=== PATIENT | male | born 1960 | race Caucasian/White ===

== ENCOUNTER 2017-05-31 12:50 | Emergency (ER) | payer MEDICAID ==
[2017-05-31 12:57] VITALS: RESP 16; TEMP 98.4
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
[2017-05-31 13:45] LABS: BASO % 0.4 % (0.0-2.0); EOS # 0.1 K/uL (0.0-0.7); EOS % 1.6 % (0.0-4.0); HEMOGLOBIN 12.9 g/dL (12.0-18.0); LYMPH # 1.8 K/uL (1.0-4.3); LYMPH % 19.8 % (20.0-40.0); MEAN CORPUSCULAR HGB CONC 33.7 g/dL (33.0-37.0); MEAN PLATELET VOLUME 8.7 fL (7.2-11.7); MONO # 0.9 K/uL (0.0-0.8); MONO % 9.8 % (0.0-10.0); NEUT # 6.2 K/uL (1.8-7.0); NEUT % 68.4 % (50.0-75.0); RBC 4.45 Mil/uL (4.40-5.90); RED CELL DISTRIBUTION WIDTH 14.1 % (11.5-14.5); WHITE BLOOD COUNT 9.1 K/uL (4.8-10.8)
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
[2017-05-31 14:40] LABS: ALB/GLOB RATIO 1.1 (1.0-2.1); ALBUMIN 3.8 g/dL (3.5-5.0); CALCIUM 8.5 mg/dl (8.6-10.4); GFR AFRICAN-AMERICAN > 60; GFR NON-AFRICAN AMERICAN > 60
[2017-05-31 14:41] LABS: ALT/SGPT 19 U/L (21-72); AST/SGOT 32 U/L (17-59); BLOOD UREA NITROGEN 7 mg/dL (9-20)
[2017-05-31 15:07] VITALS: BP 132/84; PULSE 81; O2SAT 98
--- NOTE | 2017-05-31 15:15 | RAD ---
PROCEDURE: Radiographs of the right tibia and fibula. HISTORY: leg wounds COMPARISON: None available. TECHNIQUE: Frontal and lateral views obtained. FINDINGS: BONES: No acute fracture. No lytic or blastic osseous lesion. Numerous parallel adjacent linear lucencies are seen in the anterior mid tibial diaphyseal cortex, possibly postprocedural versus posttraumatic. . . This is seen directly beneath a cutaneous irregularity suggestive of a wound. JOINT SPACES: Unremarkable. OTHER FINDINGS: None. IMPRESSION: Multiple parallel linear lucencies in the anterior mid tibial cortex, possibly post procedural recess posttraumatic. Cutaneous wound overlying this region of the mid tibia. Otherwise unremarkable.
== END 2017-05-31 15:06 | disposition home or self-care (01) ==
LOC: C.ER 12:50
DX: L97.919 Non-pressure chronic ulcer of unspecified part of right lower leg with unspecified severity (principal)

== ENCOUNTER 2017-06-28 21:18 | Emergency (ER) | payer MEDICAID ==
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
[2017-06-28 23:07] LABS: BASO # 0.1 K/uL (0.0-0.2); BASO % 0.6 % (0.0-2.0); EOS # 0.1 K/uL (0.0-0.7); EOS % 1.8 % (0.0-4.0); HEMOGLOBIN 13.2 g/dL (12.0-18.0); LYMPH # 2.5 K/uL (1.0-4.3); LYMPH % 29.9 % (20.0-40.0); MEAN CELL VOLUME 87.6 fL (80.0-94.0); MEAN CORPUSCULAR HEMOGLOBIN 29.3 pg (27.0-31.0); MEAN CORPUSCULAR HGB CONC 33.4 g/dL (33.0-37.0); MEAN PLATELET VOLUME 7.5 fL (7.2-11.7); MONO # 0.7 K/uL (0.0-0.8); MONO % 8.8 % (0.0-10.0); NEUT # 4.8 K/uL (1.8-7.0); NEUT % 58.9 % (50.0-75.0); RBC 4.52 Mil/uL (4.40-5.90); RED CELL DISTRIBUTION WIDTH 16.2 % (11.5-14.5); WHITE BLOOD COUNT 8.2 K/uL (4.8-10.8)
[2017-06-28 23:09] LABS: PROTHROMBIN TIME 11.4 SECONDS (9.7-12.2)
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
[2017-06-28 23:14] LABS: ALB/GLOB RATIO 1.1 (1.0-2.1); ALBUMIN 3.9 g/dL (3.5-5.0); ALT/SGPT 19 U/L (21-72); AST/SGOT 28 U/L (17-59); BLOOD UREA NITROGEN 9 mg/dL (9-20); CALCIUM 8.5 mg/dl (8.6-10.4); GFR AFRICAN-AMERICAN > 60; GFR NON-AFRICAN AMERICAN > 60
[2017-06-28 23:32] LABS: VENOUS BLOOD GAS BASE EXCESS -3.1 mmol/L (0.0-2.0); VENOUS BLOOD GAS PCO2 45 mmHg (40-60); VENOUS BLOOD GAS PO2 35 mm/Hg (30-55); VENOUS BLOOD PH 7.32 (7.32-7.43)
[2017-06-29 04:10] VITALS: BP 102/72; PULSE 102; RESP 20; TEMP 98.2
[2017-06-29 05:09] VITALS: O2SAT 99
== END 2017-06-29 05:30 | disposition home or self-care (01) ==
LOC: C.ER 21:18 → SUPCPDRO 21:18 → C.ER 06-29 05:30
DX: L97.919 Non-pressure chronic ulcer of unspecified part of right lower leg with unspecified severity (principal); Z51.89 Encounter for other specified aftercare; F17.210 Nicotine dependence, cigarettes, uncomplicated

== ENCOUNTER 2017-07-09 11:59 | Inpatient (IN) | payer MEDICAID ==
[2017-07-09] MEDS ORDERED: Sodium Chloride 0.9% 1,000 ML IV ONE ×2 (12:54→14:52)
[2017-07-09 13:32] LABS: BASO % 0.2 % (0.0-2.0); HEMOGLOBIN 14.5 g/dL (12.0-18.0); LYMPH # 0.6 K/uL (1.0-4.3); LYMPH % 4.5 % (20.0-40.0); MEAN CELL VOLUME 87.9 fL (80.0-94.0); MEAN CORPUSCULAR HEMOGLOBIN 29.4 pg (27.0-31.0); MEAN CORPUSCULAR HGB CONC 33.4 g/dL (33.0-37.0); MONO # 0.8 K/uL (0.0-0.8); MONO % 5.4 % (0.0-10.0); NEUT # 12.8 K/uL (1.8-7.0); NEUT % 89.9 % (50.0-75.0); PLATELET COUNT 134 K/uL (130-400); RBC 4.95 Mil/uL (4.40-5.90); RED CELL DISTRIBUTION WIDTH 15.7 % (11.5-14.5)
[2017-07-09 13:37] LABS: WHITE BLOOD COUNT 14.2 K/uL (4.8-10.8)
[2017-07-09] MEDS ORDERED: Sodium Chloride 0.9% 1,000 ML ONE ×2 (13:38→15:00)
[2017-07-09 13:55] LABS: BANDS 1 % (0-2); EOSINOPHIL 1 % (0-4); LYMPHOCYTE 4 % (20-40); MONOCYTE 3 % (0-10); NEUTROPHIL 91 % (50-75); PLATELET ESTIMATE NORMAL (NORMAL); TOTAL CELLS COUNTED 100
[2017-07-09 13:56] LABS: ANISOCYTOSIS SLIGHT
[2017-07-09 13:57] LABS: ALB/GLOB RATIO 1.1 (1.0-2.1); ALBUMIN 4.3 g/dL (3.5-5.0); ALT/SGPT 24 U/L (21-72); AST/SGOT 41 U/L (17-59); BLOOD UREA NITROGEN 4 mg/dL (9-20); CALCIUM 9.4 mg/dl (8.6-10.4); GFR AFRICAN-AMERICAN > 60; GFR NON-AFRICAN AMERICAN > 60
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
[2017-07-09] MEDS ORDERED: Thiamine 100 mg/ml Inj IV ONE (14:40)
[2017-07-09] MEDS ORDERED: Piperacillin/Tazobact 3.375 gm 100 ML IVPB STA (14:41)
[2017-07-09] MEDS ORDERED: Piperacillin/Tazobact 3.375 gm 100 ML IVPB ONE (14:59)
[2017-07-09] MEDS ORDERED: Thiamine 100 mg/ml Inj ONE (14:59)
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
--- NOTE | 2017-07-09 15:31 | RAD ---
HISTORY: Cough. COMPARISON: 06/04/2017 FINDINGS: LUNGS: No active pulmonary disease. PLEURA: No significant pleural effusion identified, no pneumothorax apparent. CARDIOVASCULAR: No radiographic findings to suggest acute or significant cardiovascular disease. OSSEOUS STRUCTURES: No significant abnormalities. VISUALIZED UPPER ABDOMEN: Normal. OTHER FINDINGS: None. IMPRESSION: No active disease. No significant interval change compared to the prior examination(s).
[2017-07-09] MEDS ORDERED: Silver Sulfadiazine 1% Cream (20 gm) ONE (15:40)
[2017-07-09 15:41] LABS: ABG ALLEN TEST POS; ARTERIAL BLOOD GAS HCO3 24.8 mmol/L (21-28); ARTERIAL BLOOD GAS O2 SAT 99.3 % (95-98); ARTERIAL BLOOD GAS PCO2 41 mm/Hg (35-45); ARTERIAL BLOOD GAS PH 7.39 (7.35-7.45); ARTERIAL BLOOD GAS PO2 112 mm/Hg (80-100); ARTERIAL BLOOD GAS TCO2 26.1 mmol/L (22-28)
--- NOTE | 2017-07-09 15:50 | CT ---
PROCEDURE: CT HEAD WITHOUT CONTRAST. HISTORY: dizziness COMPARISON: None available. TECHNIQUE: Axial computed tomography images were obtained through the head/brain without intravenous contrast. Radiation dose: Total exam DLP = 1418.16 mGy-cm. This CT exam was performed using one or more of the following dose reduction techniques: Automated exposure control, adjustment of the mA and/or kV according to patient size, and/or use of iterative reconstruction technique. FINDINGS: HEMORRHAGE: No intracranial hemorrhage. BRAIN: No mass effect or edema. Left frontal encephalomalacia. Nonspecific. VENTRICLES: Mild ex vacuo dilatation of the frontal horn, left lateral ventricle. No hydrocephalus. CALVARIUM: Old high left frontal craniotomy PARANASAL SINUSES: Severe chronic right maxillary sinusitis. Mild chronic ethmoid sinusitis. MASTOID AIR CELLS: Unremarkable as visualized. No inflammatory changes. OTHER FINDINGS: None. IMPRESSION: Old left frontal craniotomy. Left frontal encephalomalacia. Minimal ex vacuo dilatation of the frontal horn, left lateral ventricle. No intracranial mass, hemorrhage or evidence of acute infarct.
[2017-07-09] MEDS: Silver Sulfadiazine 1% Cream (20 gm) TOP SCH (15:57)
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
[2017-07-09] MEDS ORDERED: Folic Acid 1 MG, Thiamine 100 MG, Multivitamin (MVI) 10 ML in Dextrose 5% In Water 1,00... IV SCH (17:00)
[2017-07-09] MEDS: Dexmedetomidine Hydrochloride 200 MCG in Sodium Chloride 0.9% 48 ML IV PRN (18:30)
[2017-07-09] MEDS ORDERED: DAPTOmycin 500 mg Inj (Cubicin) IV SCH (19:00)
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
--- NOTE | 2017-07-09 19:14 | CP.PCM.HP ---
History of Present Illness - History of Present Illness History of Present Illness: PT. WAS FOUND ON THE FLOOR NEAR BUS STATION . PT WAS EVALUATED IN ER ,. PT HAD SEIZURE LIKE ACTIVITY AND RESPONDED TO IV ATIVAN PT HAS CH ULCERS IN LEG NO FURTHER HISTORY OBTAINED Present on Admission - Present on Admission Any Indicators Present on Admission: No Review of Systems - Review of Systems Review of Systems: PT. IS POST ICTAL Past Patient History - Infectious Disease Hx of Infectious Diseases: None - Past Medical History & Family History Past Medical History?: Yes - Past Social History Smoking Status: Current Some Days Smoker - CARDIAC Hx Cardiac Disorders: No - PULMONARY Hx Respiratory Disorders: No - NEUROLOGICAL Hx Seizures: Yes - HEENT Hx HEENT Problems: No - RENAL Hx Chronic Kidney Disease: No - ENDOCRINE/METABOLIC Hx Endocrine Disorders: No - HEMATOLOGICAL/ONCOLOGICAL Hx Blood Disorders: No - INTEGUMENTARY Hx Palmer: Yes - MUSCULOSKELETAL/RHEUMATOLOGICAL Hx Musculoskeletal Disorders: No Hx Falls: No - GASTROINTESTINAL Hx Gastrointestinal Disorders: No - GENITOURINARY/GYNECOLOGICAL Hx Genitourinary Disorders: No - PSYCHIATRIC Hx Substance Use: No - SURGICAL HISTORY Hx Surgeries: Yes Other/Comment: skin graft. 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 Negative for: Lymphadenopathy - Respiratory Exam Respiratory Exam: NORMAL BREATHING PATTERN - Cardiovascular Exam Cardiovascular Exam: +S1, +S2, +S4 - GI/Abdominal Exam GI & Abdominal Exam: Soft. absent: Tenderness - Extremities Exam Additional comments: R. LEG TERRANCE-LATERAL SUP ULCER , MILD DISCHARGE , NO PUS LEFT POST CALF , SMALLER ULCER MILD DISCHARGE Results - Vital Signs Recent Vital Signs: Last Vital Signs Temp 101.6 F H 07/09/17 16:56 Pulse 115 H 07/09/17 19:00 Resp 16 07/09/17 19:00 BP 121/89 07/09/17 18:59 Pulse Ox 99 07/09/17 19:00 - Labs Result Diagrams: 07/10/17 06:44 05/01/18 06:41 Labs: Laboratory Results - last 24 hr 07/09/17 07/09/17 07/09/17 12:31 12:32 13:00 WBC 14.2 H D RBC 4.95 Hgb 14.5 Hct 43.5 MCV 87.9 MCH 29.4 MCHC 33.4 RDW 15.7 H Plt Count 134 MPV 8.0 Neut % (Auto) 89.9 H Lymph % (Auto) 4.5 L Stevens % (Auto) 5.4 Eos % (Auto) 0.0 Baso % (Auto) 0.2 Neut # (Auto) 12.8 H Lymph # (Auto) 0.6 L Stevens # (Auto) 0.8 Eos # (Auto) 0.0 Baso # (Auto) 0.0 Neutrophils % (Manual) 91 H Band Neutrophils % 1 Lymphocytes % (Manual) 4 L Monocytes % (Manual) 3 Eosinophils % (Manual) 1 Platelet Estimate Normal Anisocytosis (manual) Slight Puncture Site pCO2 pO2 HCO3 ABG pH ABG Total CO2 ABG O2 Saturation ABG Base Excess Ben Test ABG Potassium A-a O2 Difference Respiratory Index Glucose Lactate FiO2 Sodium 144 Potassium 3.9 Chloride 106 Carbon Dioxide 25 Anion Gap 17 BUN 4 L Creatinine 0.6 L Est GFR ( Amer) > 60 Est GFR (Non-Af Amer) > 60 POC Glucose (mg/dL) 139 H Random Glucose 143 H Lactic Acid Calcium 9.4 Total Bilirubin 0.8 AST 41 ALT 24 Alkaline Phosphatase 109 Ammonia Total Creatine Kinase Troponin I Total Protein 8.2 Albumin 4.3 Globulin 3.9 Albumin/Globulin Ratio 1.1 TSH 3rd Generation Arterial Blood Potassium Alcohol, Quantitative < 10 07/09/17 07/09/17 07/09/17 14:56 14:56 15:21 WBC RBC Hgb Hct MCV MCH MCHC RDW Plt Count MPV Neut % (Auto) Lymph % (Auto) Stevens % (Auto) Eos % (Auto) Baso % (Auto) Neut # (Auto) Lymph # (Auto) Stevens # (Auto) Eos # (Auto) Baso # (Auto) Neutrophils % (Manual) Band Neutrophils % Lymphocytes % (Manual) Monocytes % (Manual) Eosinophils % (Manual) Platelet Estimate Anisocytosis (manual) Puncture Site pCO2 pO2 HCO3 ABG pH ABG Total CO2 ABG O2 Saturation ABG Base Excess Ben Test ABG Potassium A-a O2 Difference Respiratory Index Glucose Lactate FiO2 Sodium Potassium Chloride Carbon Dioxide Anion Gap BUN Creatinine Est GFR ( Amer) Est GFR (Non-Af Amer) POC Glucose (mg/dL) Random Glucose Lactic Acid 4.9 H* Calcium Total Bilirubin AST ALT Alkaline Phosphatase Ammonia 54 H Total Creatine Kinase 239 H Troponin I < 0.0120 Total Protein Albumin Globulin Albumin/Globulin Ratio TSH 3rd Generation 2.76 Arterial Blood Potassium Alcohol, Quantitative 07/09/17 07/09/17 15:35 18:03 WBC RBC Hgb Hct MCV MCH MCHC RDW Plt Count MPV Neut % (Auto) Lymph % (Auto) Stevens % (Auto) Eos % (Auto) Baso % (Auto) Neut # (Auto) Lymph # (Auto) Stevens # (Auto) Eos # (Auto) Baso # (Auto) Neutrophils % (Manual) Band Neutrophils % Lymphocytes % (Manual) Monocytes % (Manual) Eosinophils % (Manual) Platelet Estimate Anisocytosis (manual) Puncture Site Rba pCO2 41 pO2 112 H HCO3 24.8 ABG pH 7.39 ABG Total CO2 26.1 ABG O2 Saturation 99.3 H ABG Base Excess -0.2 Ben Test Pos ABG Potassium 3.4 L A-a O2 Difference -14.0 Respiratory Index -0.1 Glucose 157 H Lactate 3.0 H FiO2 21.0 Sodium 141.0 Potassium Chloride 109.0 H Carbon Dioxide Anion Gap BUN Creatinine Est GFR ( Amer) Est GFR (Non-Af Amer) POC Glucose (mg/dL) 85 Random Glucose Lactic Acid Calcium Total Bilirubin AST ALT Alkaline Phosphatase Ammonia Total Creatine Kinase Troponin I Total Protein Albumin Globulin Albumin/Globulin Ratio TSH 3rd Generation Arterial Blood Potassium 3.4 L Alcohol, Quantitative Assessment & Plan (1) Alcohol withdrawal Status: Acute Comment: IN PRECEDEX (2) Cellulitis of leg, right Status: Acute Comment: IV AB. ID/PODS EVAL
[2017-07-09] MEDS: Piperacill/Tazo 3.375gm in Dex 3.375 GM/50 ML BAG IVPB SCH (21:05)
[2017-07-10] MEDS: Dexmedetomidine Hydrochloride 200 MCG in Sodium Chloride 0.9% 48 ML IV PRN (02:27)
[2017-07-10] MEDS: Piperacill/Tazo 3.375gm in Dex 3.375 GM/50 ML BAG IVPB SCH ×4 (04:00→22:29)
[2017-07-10 07:05] LABS: ALBUMIN 3.4 g/dL (3.5-5.0); ALT/SGPT 18 U/L (21-72); AST/SGOT 34 U/L (17-59); BLOOD UREA NITROGEN 5 mg/dL (9-20); CALCIUM 8.7 mg/dl (8.6-10.4); GFR AFRICAN-AMERICAN > 60; GFR NON-AFRICAN AMERICAN > 60
[2017-07-10 07:25] LABS: BASO % 0.5 % (0.0-2.0); EOS # 0.1 K/uL (0.0-0.7); EOS % 0.7 % (0.0-4.0); HEMOGLOBIN 12.8 g/dL (12.0-18.0); LYMPH # 1.6 K/uL (1.0-4.3); LYMPH % 19.3 % (20.0-40.0); MEAN CELL VOLUME 88.6 fL (80.0-94.0); MEAN CORPUSCULAR HEMOGLOBIN 29.3 pg (27.0-31.0); MEAN PLATELET VOLUME 8.3 fL (7.2-11.7); MONO % 11.7 % (0.0-10.0); NEUT # 5.8 K/uL (1.8-7.0); NEUT % 67.8 % (50.0-75.0); NRBC % 0.1 % (0.0-2.0); RBC 4.37 Mil/uL (4.40-5.90); RED CELL DISTRIBUTION WIDTH 15.5 % (11.5-14.5); WHITE BLOOD COUNT 8.5 K/uL (4.8-10.8)
[2017-07-10] MEDS ORDERED: Potassium Chloride 20 mEq/15 ml LIQ UD PO ONE ×2 (08:15→14:00)
--- NOTE | 2017-07-10 08:38 | CP.CCUPN ---
<Pasha Stroud - Last Filed: 07/10/17 10:05> CCU Subjective - Physician Review Subjective (Free Text): 07/10/17 08:35 Patient seen and examined. Patient is more awake today and is not currently experiencing tremors. He states that his last drink was on Sunday. Patient spiked fever last night Tmax 101.7. CCU Objective - Vital Signs / Intake & Output Vital Signs (Last 4 hours): Vital Signs Temp Pulse Resp BP Pulse Ox 07/10/17 08:07 85/58 L 07/10/17 08:06 86 21 95 07/10/17 08:00 98.7 F 07/10/17 07:58 97/63 L 07/10/17 07:57 87 15 99 07/10/17 06:58 79 13 106/60 99 07/10/17 06:00 92 H 14 07/10/17 05:58 93 H 13 103/64 07/10/17 05:00 106 H 17 07/10/17 04:58 94 H 21 125/38 L Intake and Output (Last 8hrs): Intake & Output 07/09/17 07/10/17 07/10/17 22:59 06:59 14:59 Intake Total 493.4 922.9 228.5 Output Total 400 200 Balance 493.4 522.9 28.5 Weight 150 lb 2.157 oz Intake: IV 23 27 20 Intake, IV Amount 470.4 895.9 208.5 Left Forearm 450 850 200 Left Hand 20.4 45.9 8.5 Oral 0 Output: Urine 400 200 Condom 400 200 Other: Voiding Method Urinal - Physical Exam Head: Positive for: Atraumatic, Normocephalic Pupils: Positive for: PERRL Extroacular Muscles: Positive for: EOMI Mouth: Positive for: Moist Mucous Membranes Respiratory/Chest: Positive for: Clear to Auscultation. Negative for: Wheezes, Rales, Rhonchi Cardiovascular: Positive for: Regular Rate and Rhythm, Normal S1, S2 Abdomen: Positive for: Distention, Normal Bowel Sounds. Negative for: Tenderness Lower Extremity: Positive for: Other (chronic cellulititic changes in both legs. dressings clean, dry, intact). Negative for: Edema Neurological: Positive for: GCS=15 Skin: Positive for: Warm, Dry Psychiatric: Positive for: Alert, Oriented x 3 - Medications Active Medications: Active Medications Generic Name Dose Route Start Last Admin Trade Name Freq PRN Reason Stop Dose Admin Heparin Sodium (Porcine) 5,000 units 07/09/17 22:00 07/09/17 21:07 Heparin SC 5,000 units Q12H LITA Administration Folic Acid 1 mg/ Sodium 100.2 mls @ 60 mls/hr 07/10/17 10:00 Chloride IV DAILY LITA Dexmedetomidine HCl 200 mcg/ 50 mls @ 3.4 mls/hr 07/09/17 17:41 07/10/17 08: 00 Sodium Chloride IV 0.2 mcg/kg/hr TITR PRN 3.4 mls/hr Symptoms of alcohol withdrawl Titration Protocol 0.2 MCG/KG/HR Piperacillin Sod/Tazobactam Sod 3.375 gm in 50 mls @ 100 mls/hr 07/09/17 22: 00 07/10/17 04:00 Zosyn 3.375 Gm Iv Premix IVPB 100 mls/hr Q6H LITA Administration Protocol Daptomycin 410 mg/ Sodium 100 mls @ 100 mls/hr 07/09/17 20:00 07/09/17 20:30 Chloride IV 07/14/17 20:01 100 mls/hr Q24H LITA Administration Lorazepam 2 mg 07/09/17 17:03 Ativan IVP Q3H PRN Symptoms of alcohol withdrawl Pantoprazole Sodium 40 mg 07/09/17 18:00 07/09/17 18:43 Protonix Inj IVP 40 mg DAILY LITA Administration Silver Sulfadiazine 0 ea 07/09/17 14:45 07/09/17 15:57 Silvadene 1% 20 Gm TOP 20 gm DAILY LITA Administration Thiamine HCl 100 mg 07/10/17 10:00 Vitamin B1 Inj IV DAILY LITA - Patient Studies Lab Studies: Microbiology Studies 07/09/17 15:30 Gram Stain - Final Leg - Right Lab Studies 07/10/17 07/10/17 07/10/17 Range/Units 06:44 06:44 06:41 WBC 8.5 (4.8-10.8) K/uL RBC 4.37 L (4.40-5.90) Mil/uL Hgb 12.8 (12.0-18.0) g/dL Hct 38.8 (35.0-51.0) % MCV 88.6 (80.0-94.0) fL MCH 29.3 (27.0-31.0) pg MCHC 33.0 (33.0-37.0) g/dL RDW 15.5 H (11.5-14.5) % Plt Count 100 L D (130-400) K/uL MPV 8.3 (7.2-11.7) fL Neut % (Auto) 67.8 (50.0-75.0) % Lymph % (Auto) 19.3 L (20.0-40.0) % [place] % (Auto) 11.7 H (0.0-10.0) % Eos % (Auto) 0.7 (0.0-4.0) % Baso % (Auto) 0.5 (0.0-2.0) % Neut # (Auto) 5.8 (1.8-7.0) K/uL Lymph # (Auto) 1.6 (1.0-4.3) K/uL [place] # (Auto) 1.0 H (0.0-0.8) K/uL Eos # (Auto) 0.1 (0.0-0.7) K/uL Baso # (Auto) 0.0 (0.0-0.2) K/uL Neutrophils % (Manual) (50-75) % Band Neutrophils % (0-2) % Lymphocytes % (Manual) (20-40) % Monocytes % (Manual) (0-10) % Eosinophils % (Manual) (0-4) % Platelet Estimate (NORMAL) Anisocytosis (manual) APTT 22 (21-34) SECONDS Puncture Site pCO2 (35-45) mm/Hg pO2 (80-100) mm/Hg HCO3 (21-28) mmol/L ABG pH (7.35-7.45) ABG Total CO2 (22-28) mmol/L ABG O2 Saturation (95-98) % ABG Base Excess (-2.0-3.0) mmol/L Ben Test ABG Potassium (3.6-5.2) mmol/L A-a O2 Difference mm/Hg Respiratory Index Glucose (75-110) mg/dl Lactate (0.7-2.1) mmol/L FiO2 % Sodium 143 (132-148) mmol/L Potassium 3.0 L (3.6-5.2) mmol/L Chloride 106 (98-107) mmol/L Carbon Dioxide 27 (22-30) mmol/L Anion Gap 13 (10-20) BUN 5 L (9-20) mg/dL Creatinine 0.6 L (0.8-1.5) mg/dL Est GFR ( Amer) > 60 Est GFR (Non-Af Amer) > 60 POC Glucose (mg/dL) (65-110) mg/dL Random Glucose 87 (75-110) mg/dL Lactic Acid (0.7-2.1) mmol/L Calcium 8.7 (8.6-10.4) mg/dl Phosphorus 2.8 (2.5-4.5) mg/dL Magnesium 2.3 (1.6-2.3) mg/dL Total Bilirubin 1.8 H (0.2-1.3) mg/dL AST 34 (17-59) U/L ALT 18 L D (21-72) U/L Alkaline Phosphatase 76 (38-126) U/L Ammonia (9-33) umol/L Total Creatine Kinase (55-170) U/L Troponin I (0.00-0.120) ng/mL Total Protein 6.8 (6.3-8.3) g/dL Albumin 3.4 L D (3.5-5.0) g/dL Globulin 3.5 (2.2-3.9) gm/dL Albumin/Globulin Ratio 1.0 (1.0-2.1) TSH 3rd Generation (0.46-4.68) mIU/L Arterial Blood Potassium (3.6-5.2) mmol/L Alcohol, Quantitative (0-10) mg/dl 07/10/17 07/10/17 07/09/17 Range/Units 06:28 00:25 19:49 WBC (4.8-10.8) K/uL RBC (4.40-5.90) Mil/uL Hgb (12.0-18.0) g/dL Hct (35.0-51.0) % MCV (80.0-94.0) fL MCH (27.0-31.0) pg MCHC (33.0-37.0) g/dL RDW (11.5-14.5) % Plt Count (130-400) K/uL MPV (7.2-11.7) fL Neut % (Auto) (50.0-75.0) % Lymph % (Auto) (20.0-40.0) % [place] % (Auto) (0.0-10.0) % Eos % (Auto) (0.0-4.0) % Baso % (Auto) (0.0-2.0) % Neut # (Auto) (1.8-7.0) K/uL Lymph # (Auto) (1.0-4.3) K/uL [place] # (Auto) (0.0-0.8) K/uL Eos # (Auto) (0.0-0.7) K/uL Baso # (Auto) (0.0-0.2) K/uL Neutrophils % (Manual) (50-75) % Band Neutrophils % (0-2) % Lymphocytes % (Manual) (20-40) % Monocytes % (Manual) (0-10) % Eosinophils % (Manual) (0-4) % Platelet Estimate (NORMAL) Anisocytosis (manual) APTT (21-34) SECONDS Puncture Site pCO2 (35-45) mm/Hg pO2 (80-100) mm/Hg HCO3 (21-28) mmol/L ABG pH (7.35-7.45) ABG Total CO2 (22-28) mmol/L ABG O2 Saturation (95-98) % ABG Base Excess (-2.0-3.0) mmol/L Ben Test ABG Potassium (3.6-5.2) mmol/L A-a O2 Difference mm/Hg Respiratory Index Glucose (75-110) mg/dl Lactate (0.7-2.1) mmol/L FiO2 % Sodium (132-148) mmol/L Potassium (3.6-5.2) mmol/L Chloride (98-107) mmol/L Carbon Dioxide (22-30) mmol/L Anion Gap (10-20) BUN (9-20) mg/dL Creatinine (0.8-1.5) mg/dL Est GFR ( Amer) Est GFR (Non-Af Amer) POC Glucose (mg/dL) 89 119 H (65-110) mg/dL Random Glucose (75-110) mg/dL Lactic Acid 0.7 (0.7-2.1) mmol/L Calcium (8.6-10.4) mg/dl Phosphorus (2.5-4.5) mg/dL Magnesium (1.6-2.3) mg/dL Total Bilirubin (0.2-1.3) mg/dL AST (17-59) U/L ALT (21-72) U/L Alkaline Phosphatase (38-126) U/L Ammonia (9-33) umol/L Total Creatine Kinase (55-170) U/L Troponin I (0.00-0.120) ng/mL Total Protein (6.3-8.3) g/dL Albumin (3.5-5.0) g/dL Globulin (2.2-3.9) gm/dL Albumin/Globulin Ratio (1.0-2.1) TSH 3rd Generation (0.46-4.68) mIU/L Arterial Blood Potassium (3.6-5.2) mmol/L Alcohol, Quantitative (0-10) mg/dl 07/09/17 07/09/17 07/09/17 Range/Units 18:03 15:35 15:21 WBC (4.8-10.8) K/uL RBC (4.40-5.90) Mil/uL Hgb (12.0-18.0) g/dL Hct (35.0-51.0) % MCV (80.0-94.0) fL MCH (27.0-31.0) pg MCHC (33.0-37.0) g/dL RDW (11.5-14.5) % Plt Count (130-400) K/uL MPV (7.2-11.7) fL Neut % (Auto) (50.0-75.0) % Lymph % (Auto) (20.0-40.0) % [place] % (Auto) (0.0-10.0) % Eos % (Auto) (0.0-4.0) % Baso % (Auto) (0.0-2.0) % Neut # (Auto) (1.8-7.0) K/uL Lymph # (Auto) (1.0-4.3) K/uL [place] # (Auto) (0.0-0.8) K/uL Eos # (Auto) (0.0-0.7) K/uL Baso # (Auto) (0.0-0.2) K/uL Neutrophils % (Manual) (50-75) % Band Neutrophils % (0-2) % Lymphocytes % (Manual) (20-40) % Monocytes % (Manual) (0-10) % Eosinophils % (Manual) (0-4) % Platelet Estimate (NORMAL) Anisocytosis (manual) APTT (21-34) SECONDS Puncture Site Rba pCO2 41 (35-45) mm/Hg pO2 112 H (80-100) mm/Hg HCO3 24.8 (21-28) mmol/L ABG pH 7.39 (7.35-7.45) ABG Total CO2 26.1 (22-28) mmol/L ABG O2 Saturation 99.3 H (95-98) % ABG Base Excess -0.2 (-2.0-3.0) mmol/L Ben Test Pos ABG Potassium 3.4 L (3.6-5.2) mmol/L A-a O2 Difference -14.0 mm/Hg Respiratory Index -0.1 Glucose 157 H (75-110) mg/dl Lactate 3.0 H (0.7-2.1) mmol/L FiO2 21.0 % Sodium 141.0 (132-148) mmol/L Potassium (3.6-5.2) mmol/L Chloride 109.0 H (98-107) mmol/L Carbon Dioxide (22-30) mmol/L Anion Gap (10-20) BUN (9-20) mg/dL Creatinine (0.8-1.5) mg/dL Est GFR ( Amer) Est GFR (Non-Af Amer) POC Glucose (mg/dL) 85 (65-110) mg/dL Random Glucose (75-110) mg/dL Lactic Acid 4.9 H* (0.7-2.1) mmol/L Calcium (8.6-10.4) mg/dl Phosphorus (2.5-4.5) mg/dL Magnesium (1.6-2.3) mg/dL Total Bilirubin (0.2-1.3) mg/dL AST (17-59) U/L ALT (21-72) U/L Alkaline Phosphatase (38-126) U/L Ammonia (9-33) umol/L Total Creatine Kinase (55-170) U/L Troponin I (0.00-0.120) ng/mL Total Protein (6.3-8.3) g/dL Albumin (3.5-5.0) g/dL Globulin (2.2-3.9) gm/dL Albumin/Globulin Ratio (1.0-2.1) TSH 3rd Generation (0.46-4.68) mIU/L Arterial Blood Potassium 3.4 L (3.6-5.2) mmol/L Alcohol, Quantitative (0-10) mg/dl 07/09/17 07/09/17 07/09/17 Range/Units 14:56 14:56 13:00 WBC 14.2 H D (4.8-10.8) K/uL RBC 4.95 (4.40-5.90) Mil/uL Hgb 14.5 (12.0-18.0) g/dL Hct 43.5 (35.0-51.0) % MCV 87.9 (80.0-94.0) fL MCH 29.4 (27.0-31.0) pg MCHC 33.4 (33.0-37.0) g/dL RDW 15.7 H (11.5-14.5) % Plt Count 134 (130-400) K/uL MPV 8.0 (7.2-11.7) fL Neut % (Auto) 89.9 H (50.0-75.0) % Lymph % (Auto) 4.5 L (20.0-40.0) % [place] % (Auto) 5.4 (0.0-10.0) % Eos % (Auto) 0.0 (0.0-4.0) % Baso % (Auto) 0.2 (0.0-2.0) % Neut # (Auto) 12.8 H (1.8-7.0) K/uL Lymph # (Auto) 0.6 L (1.0-4.3) K/uL [place] # (Auto) 0.8 (0.0-0.8) K/uL Eos # (Auto) 0.0 (0.0-0.7) K/uL Baso # (Auto) 0.0 (0.0-0.2) K/uL Neutrophils % (Manual) 91 H (50-75) % Band Neutrophils % 1 (0-2) % Lymphocytes % (Manual) 4 L (20-40) % Monocytes % (Manual) 3 (0-10) % Eosinophils % (Manual) 1 (0-4) % Platelet Estimate Normal (NORMAL) Anisocytosis (manual) Slight APTT (21-34) SECONDS Puncture Site pCO2 (35-45) mm/Hg pO2 (80-100) mm/Hg HCO3 (21-28) mmol/L ABG pH (7.35-7.45) ABG Total CO2 (22-28) mmol/L ABG O2 Saturation (95-98) % ABG Base Excess (-2.0-3.0) mmol/L Ben Test ABG Potassium (3.6-5.2) mmol/L A-a O2 Difference mm/Hg Respiratory Index Glucose (75-110) mg/dl Lactate (0.7-2.1) mmol/L FiO2 % Sodium (132-148) mmol/L Potassium (3.6-5.2) mmol/L Chloride (98-107) mmol/L Carbon Dioxide (22-30) mmol/L Anion Gap (10-20) BUN (9-20) mg/dL Creatinine (0.8-1.5) mg/dL Est GFR ( Amer) Est GFR (Non-Af Amer) POC Glucose (mg/dL) (65-110) mg/dL Random Glucose (75-110) mg/dL Lactic Acid (0.7-2.1) mmol/L Calcium (8.6-10.4) mg/dl Phosphorus (2.5-4.5) mg/dL Magnesium (1.6-2.3) mg/dL Total Bilirubin (0.2-1.3) mg/dL AST (17-59) U/L ALT (21-72) U/L Alkaline Phosphatase (38-126) U/L Ammonia 54 H (9-33) umol/L Total Creatine Kinase 239 H (55-170) U/L Troponin I < 0.0120 (0.00-0.120) ng/mL Total Protein (6.3-8.3) g/dL Albumin (3.5-5.0) g/dL Globulin (2.2-3.9) gm/dL Albumin/Globulin Ratio (1.0-2.1) TSH 3rd Generation 2.76 (0.46-4.68) mIU/L Arterial Blood Potassium (3.6-5.2) mmol/L Alcohol, Quantitative (0-10) mg/dl 07/09/17 07/09/17 Range/Units 12:32 12:31 WBC (4.8-10.8) K/uL RBC (4.40-5.90) Mil/uL Hgb (12.0-18.0) g/dL Hct (35.0-51.0) % MCV (80.0-94.0) fL MCH (27.0-31.0) pg MCHC (33.0-37.0) g/dL RDW (11.5-14.5) % Plt Count (130-400) K/uL MPV (7.2-11.7) fL Neut % (Auto) (50.0-75.0) % Lymph % (Auto) (20.0-40.0) % [place] % (Auto) (0.0-10.0) % Eos % (Auto) (0.0-4.0) % Baso % (Auto) (0.0-2.0) % Neut # (Auto) (1.8-7.0) K/uL Lymph # (Auto) (1.0-4.3) K/uL [place] # (Auto) (0.0-0.8) K/uL Eos # (Auto) (0.0-0.7) K/uL Baso # (Auto) (0.0-0.2) K/uL Neutrophils % (Manual) (50-75) % Band Neutrophils % (0-2) % Lymphocytes % (Manual) (20-40) % Monocytes % (Manual) (0-10) % Eosinophils % (Manual) (0-4) % Platelet Estimate (NORMAL) Anisocytosis (manual) APTT (21-34) SECONDS Puncture Site pCO2 (35-45) mm/Hg pO2 (80-100) mm/Hg HCO3 (21-28) mmol/L ABG pH (7.35-7.45) ABG Total CO2 (22-28) mmol/L ABG O2 Saturation (95-98) % ABG Base Excess (-2.0-3.0) mmol/L Ben Test ABG Potassium (3.6-5.2) mmol/L A-a O2 Difference mm/Hg Respiratory Index Glucose (75-110) mg/dl Lactate (0.7-2.1) mmol/L FiO2 % Sodium 144 (132-148) mmol/L Potassium 3.9 (3.6-5.2) mmol/L Chloride 106 (98-107) mmol/L Carbon Dioxide 25 (22-30) mmol/L Anion Gap 17 (10-20) BUN 4 L (9-20) mg/dL Creatinine 0.6 L (0.8-1.5) mg/dL Est GFR ( Amer) > 60 Est GFR (Non-Af Amer) > 60 POC Glucose (mg/dL) 139 H (65-110) mg/dL Random Glucose 143 H (75-110) mg/dL Lactic Acid (0.7-2.1) mmol/L Calcium 9.4 (8.6-10.4) mg/dl Phosphorus (2.5-4.5) mg/dL Magnesium (1.6-2.3) mg/dL Total Bilirubin 0.8 (0.2-1.3) mg/dL AST 41 (17-59) U/L ALT 24 (21-72) U/L Alkaline Phosphatase 109 (38-126) U/L Ammonia (9-33) umol/L Total Creatine Kinase (55-170) U/L Troponin I (0.00-0.120) ng/mL Total Protein 8.2 (6.3-8.3) g/dL Albumin 4.3 (3.5-5.0) g/dL Globulin 3.9 (2.2-3.9) gm/dL Albumin/Globulin Ratio 1.1 (1.0-2.1) TSH 3rd Generation (0.46-4.68) mIU/L Arterial Blood Potassium (3.6-5.2) mmol/L Alcohol, Quantitative < 10 (0-10) mg/dl Laboratory Results - last 24 hr 07/09/17 07/09/17 07/09/17 12:31 12:32 13:00 WBC 14.2 H D RBC 4.95 Hgb 14.5 Hct 43.5 MCV 87.9 MCH 29.4 MCHC 33.4 RDW 15.7 H Plt Count 134 MPV 8.0 Neut % (Auto) 89.9 H Lymph % (Auto) 4.5 L [place] % (Auto) 5.4 Eos % (Auto) 0.0 Baso % (Auto) 0.2 Neut # (Auto) 12.8 H Lymph # (Auto) 0.6 L [place] # (Auto) 0.8 Eos # (Auto) 0.0 Baso # (Auto) 0.0 Neutrophils % (Manual) 91 H Band Neutrophils % 1 Lymphocytes % (Manual) 4 L Monocytes % (Manual) 3 Eosinophils % (Manual) 1 Platelet Estimate Normal Anisocytosis (manual) Slight APTT Puncture Site pCO2 pO2 HCO3 ABG pH ABG Total CO2 ABG O2 Saturation ABG Base Excess Ben Test ABG Potassium A-a O2 Difference Respiratory Index Glucose Lactate FiO2 Sodium 144 Potassium 3.9 Chloride 106 Carbon Dioxide 25 Anion Gap 17 BUN 4 L Creatinine 0.6 L Est GFR ( Amer) > 60 Est GFR (Non-Af Amer) > 60 POC Glucose (mg/dL) 139 H Random Glucose 143 H Lactic Acid Calcium 9.4 Phosphorus Magnesium Total Bilirubin 0.8 AST 41 ALT 24 Alkaline Phosphatase 109 Ammonia Total Creatine Kinase Troponin I Total Protein 8.2 Albumin 4.3 Globulin 3.9 Albumin/Globulin Ratio 1.1 TSH 3rd Generation Arterial Blood Potassium Alcohol, Quantitative < 10 07/09/17 07/09/17 07/09/17 14:56 14:56 15:21 WBC RBC Hgb Hct MCV MCH MCHC RDW Plt Count MPV Neut % (Auto) Lymph % (Auto) [place] % (Auto) Eos % (Auto) Baso % (Auto) Neut # (Auto) Lymph # (Auto) [place] # (Auto) Eos # (Auto) Baso # (Auto) Neutrophils % (Manual) Band Neutrophils % Lymphocytes % (Manual) Monocytes % (Manual) Eosinophils % (Manual) Platelet Estimate Anisocytosis (manual) APTT Puncture Site pCO2 pO2 HCO3 ABG pH ABG Total CO2 ABG O2 Saturation ABG Base Excess Ben Test ABG Potassium A-a O2 Difference Respiratory Index Glucose Lactate FiO2 Sodium Potassium Chloride Carbon Dioxide Anion Gap BUN Creatinine Est GFR ( Amer) Est GFR (Non-Af Amer) POC Glucose (mg/dL) Random Glucose Lactic Acid 4.9 H* Calcium Phosphorus Magnesium Total Bilirubin AST ALT Alkaline Phosphatase Ammonia 54 H Total Creatine Kinase 239 H Troponin I < 0.0120 Total Protein Albumin Globulin Albumin/Globulin Ratio TSH 3rd Generation 2.76 Arterial Blood Potassium Alcohol, Quantitative 07/09/17 07/09/17 07/09/17 15:35 18:03 19:49 WBC RBC Hgb Hct MCV MCH MCHC RDW Plt Count MPV Neut % (Auto) Lymph % (Auto) [place] % (Auto) Eos % (Auto) Baso % (Auto) Neut # (Auto) Lymph # (Auto) [place] # (Auto) Eos # (Auto) Baso # (Auto) Neutrophils % (Manual) Band Neutrophils % Lymphocytes % (Manual) Monocytes % (Manual) Eosinophils % (Manual) Platelet Estimate Anisocytosis (manual) APTT Puncture Site Rba pCO2 41 pO2 112 H HCO3 24.8 ABG pH 7.39 ABG Total CO2 26.1 ABG O2 Saturation 99.3 H ABG Base Excess -0.2 Ben Test Pos ABG Potassium 3.4 L A-a O2 Difference -14.0 Respiratory Index -0.1 Glucose 157 H Lactate 3.0 H FiO2 21.0 Sodium 141.0 Potassium Chloride 109.0 H Carbon Dioxide Anion Gap BUN Creatinine Est GFR ( Amer) Est GFR (Non-Af Amer) POC Glucose (mg/dL) 85 Random Glucose Lactic Acid 0.7 Calcium Phosphorus Magnesium Total Bilirubin AST ALT Alkaline Phosphatase Ammonia Total Creatine Kinase Troponin I Total Protein Albumin Globulin Albumin/Globulin Ratio [facility] 3rd Generation Arterial Blood Potassium 3.4 L Alcohol, Quantitative 07/10/17 07/10/17 07/10/17 00:25 06:28 06:41 WBC RBC Hgb Hct MCV MCH MCHC RDW Plt Count MPV Neut % (Auto) Lymph % (Auto) [place] % (Auto) Eos % (Auto) Baso % (Auto) Neut # (Auto) Lymph # (Auto) [place] # (Auto) Eos # (Auto) Baso # (Auto) Neutrophils % (Manual) Band Neutrophils % Lymphocytes % (Manual) Monocytes % (Manual) Eosinophils % (Manual) Platelet Estimate Anisocytosis (manual) APTT Puncture Site pCO2 pO2 HCO3 ABG pH ABG Total CO2 ABG O2 Saturation ABG Base Excess Ben Test ABG Potassium A-a O2 Difference Respiratory Index Glucose Lactate FiO2 Sodium 143 Potassium 3.0 L Chloride 106 Carbon Dioxide 27 Anion Gap 13 BUN 5 L Creatinine 0.6 L Est GFR ( Amer) > 60 Est GFR (Non-Af Amer) > 60 POC Glucose (mg/dL) 119 H 89 Random Glucose 87 Lactic Acid Calcium 8.7 Phosphorus 2.8 Magnesium 2.3 Total Bilirubin 1.8 H AST 34 ALT 18 L D Alkaline Phosphatase 76 Ammonia Total Creatine Kinase Troponin I Total Protein 6.8 Albumin 3.4 L D Globulin 3.5 Albumin/Globulin Ratio 1.0 TSH 3rd Generation Arterial Blood Potassium Alcohol, Quantitative 07/10/17 07/10/17 06:44 06:44 WBC 8.5 RBC 4.37 L Hgb 12.8 Hct 38.8 MCV 88.6 MCH 29.3 MCHC 33.0 RDW 15.5 H Plt Count 100 L D MPV 8.3 Neut % (Auto) 67.8 Lymph % (Auto) 19.3 L [place] % (Auto) 11.7 H Eos % (Auto) 0.7 Baso % (Auto) 0.5 Neut # (Auto) 5.8 Lymph # (Auto) 1.6 [place] # (Auto) 1.0 H Eos # (Auto) 0.1 Baso # (Auto) 0.0 Neutrophils % (Manual) Band Neutrophils % Lymphocytes % (Manual) Monocytes % (Manual) Eosinophils % (Manual) Platelet Estimate Anisocytosis (manual) APTT 22 Puncture Site pCO2 pO2 HCO3 ABG pH ABG Total CO2 ABG O2 Saturation ABG Base Excess Ben Test ABG Potassium A-a O2 Difference Respiratory Index Glucose Lactate FiO2 Sodium Potassium Chloride Carbon Dioxide Anion Gap BUN Creatinine Est GFR ( Amer) Est GFR (Non-Af Amer) POC Glucose (mg/dL) Random Glucose Lactic Acid Calcium Phosphorus Magnesium Total Bilirubin AST ALT Alkaline Phosphatase Ammonia Total Creatine Kinase Troponin I Total Protein Albumin Globulin Albumin/Globulin Ratio TSH 3rd Generation Arterial Blood Potassium Alcohol, Quantitative EKG/Cardiology Studies: Cardiology / EKG Studies 07/09/17 14:39 ELECTROCARDIOGRAM Stat Comment: Mode Of Transportation: STRETCHER Reason For Exam: seizure Fingerstick Blood Sugar Results: 89 Critical Care Progress Note - Nutrition Nutrition: Nutrition Category Date Time Status NPO Diet [DIET] Diets 07/09/17 Lunch Active Assessment/Plan - Assessment and Plan (Free Text) Assessment: This is a 57 year old homeless male with PMHx alcohol abuse who was admitted to the ICU for delirium tremens and alcohol withdrawal seizures. Patient now awake and alert. States last drink was on Sunday. Neuro Assessment: Alcohol withdrawal seizures, delirium tremens Will wean off of Precedex and start Librium taper. Ativan 2 mg Q3H prn withdrawal symptoms Another Banana bag for today IV thiamine and folic acid Cardio No active issues Pulm Saturating well and maintaining airway at this time GI NPO for now. If passes bedside swallow, can start on liquid diet. Protonix 40 mg IV daily Endocrine Monitor blood glucose Q6H since NPO Infectious Disease Assessment: LE wounds ID consulted Podiatry consulted Zosyn 3.375 gm Q6H Daptomycin 410 mg Q24H Prophylaxis Heparin SC Q12H Protonix 40 mg IV daily Discussed with Dr. Orellana <Stefan Orellana S - Last Filed: 07/10/17 17:31> CCU Objective - Vital Signs / Intake & Output Vital Signs (Last 4 hours): Vital Signs Pulse Resp BP Pulse Ox 07/10/17 15:08 104 H 20 107/71 99 07/10/17 14:08 92 H 24 92/56 L 95 Intake and Output (Last 8hrs): Intake & Output 07/10/17 07/10/17 07/10/17 06:59 14:59 22:59 Intake Total 922.9 917.0 150 Output Total 400 575 Balance 522.9 342.0 150 Weight 150 lb 2.157 oz Intake: IV 27 30 Intake, IV Amount 895.9 587.0 150 Left Forearm 850 370 50 Left Hand 45.9 217.0 100 Oral 300 Output: Urine 400 575 Condom 400 575 Other: # Voids Condom 2 # Bowel Movements 1 - Medications Active Medications: Active Medications Generic Name Dose Route Start Last Admin Trade Name Freq PRN Reason Stop Dose Admin Chlordiazepoxide 25 mg 07/10/17 10:00 07/10/17 17:06 Librium PO 07/14/17 09:59 25 mg Q6 LITA Administration Taper Heparin Sodium (Porcine) 5,000 units 07/09/17 22:00 07/10/17 09:38 Heparin SC 5,000 units Q12H LITA Administration Folic Acid 1 mg/ Sodium 100.2 mls @ 60 mls/hr 07/10/17 10:00 07/10/17 10:44 Chloride IV 60 mls/hr DAILY LITA Administration Dexmedetomidine HCl 200 mcg/ 50 mls @ 3.4 mls/hr 07/09/17 17:41 07/10/17 11: 29 Sodium Chloride IV 0 mcg/kg/hr TITR PRN 0 mls/hr Symptoms of alcohol withdrawl Titration Protocol 0.2 MCG/KG/HR Piperacillin Sod/Tazobactam Sod 3.375 gm in 50 mls @ 100 mls/hr 07/09/17 22: 00 07/10/17 15:13 Zosyn 3.375 Gm Iv Premix IVPB 100 mls/hr Q6H LITA Administration Protocol Daptomycin 410 mg/ Sodium 100 mls @ 100 mls/hr 07/09/17 20:00 07/09/17 20:30 Chloride IV 07/14/17 20:01 100 mls/hr Q24H LITA Administration Folic Acid 1 mg/ Thiamine HCl 1,011.2 mls @ 100 mls/hr 07/10/17 09:30 13:21 100 mg/ Multivitamins/Vitamin IV 07/10/17 19:36 100 mls/hr C 10 ml/ Dextrose .Q10H7M LITA Administration Lorazepam 2 mg 07/09/17 17:03 Ativan IVP Q3H PRN Symptoms of alcohol withdrawl Pantoprazole Sodium 40 mg 07/09/17 18:00 07/10/17 09:39 Protonix Inj IVP 40 mg DAILY LITA Administration Silver Sulfadiazine 0 ea 07/09/17 14:45 07/10/17 09:39 Silvadene 1% 20 Gm TOP 1 gm DAILY LITA Administration Thiamine HCl 100 mg 07/10/17 10:00 07/10/17 09:39 Vitamin B1 Inj IV 100 mg DAILY LITA Administration - Patient Studies Lab Studies: Microbiology Studies 07/09/17 15:30 Gram Stain - Final Leg - Right Wound Culture - Preliminary Gram Negative Hussein Lab Studies 07/10/17 07/10/17 07/10/17 Range/Units 12:12 06:44 06:44 WBC 8.5 (4.8-10.8) K/uL RBC 4.37 L (4.40-5.90) Mil/uL Hgb 12.8 (12.0-18.0) g/dL Hct 38.8 (35.0-51.0) % MCV 88.6 (80.0-94.0) fL MCH 29.3 (27.0-31.0) pg MCHC 33.0 (33.0-37.0) g/dL RDW 15.5 H (11.5-14.5) % Plt Count 100 L D (130-400) K/uL MPV 8.3 (7.2-11.7) fL Neut % (Auto) 67.8 (50.0-75.0) % Lymph % (Auto) 19.3 L (20.0-40.0) % [place] % (Auto) 11.7 H (0.0-10.0) % Eos % (Auto) 0.7 (0.0-4.0) % Baso % (Auto) 0.5 (0.0-2.0) % Neut # (Auto) 5.8 (1.8-7.0) K/uL Lymph # (Auto) 1.6 (1.0-4.3) K/uL [place] # (Auto) 1.0 H (0.0-0.8) K/uL Eos # (Auto) 0.1 (0.0-0.7) K/uL Baso # (Auto) 0.0 (0.0-0.2) K/uL APTT 22 (21-34) SECONDS Sodium (132-148) mmol/L Potassium (3.6-5.2) mmol/L Chloride (98-107) mmol/L Carbon Dioxide (22-30) mmol/L Anion Gap (10-20) BUN (9-20) mg/dL Creatinine (0.8-1.5) mg/dL Est GFR ( Amer) Est GFR (Non-Af Amer) POC Glucose (mg/dL) 83 (65-110) mg/dL Random Glucose (75-110) mg/dL Lactic Acid (0.7-2.1) mmol/L Calcium (8.6-10.4) mg/dl Phosphorus (2.5-4.5) mg/dL Magnesium (1.6-2.3) mg/dL Total Bilirubin (0.2-1.3) mg/dL AST (17-59) U/L ALT (21-72) U/L Alkaline Phosphatase (38-126) U/L Total Protein (6.3-8.3) g/dL Albumin (3.5-5.0) g/dL Globulin (2.2-3.9) gm/dL Albumin/Globulin Ratio (1.0-2.1) 07/10/17 07/10/17 07/10/17 Range/Units 06:41 06:28 00:25 WBC (4.8-10.8) K/uL RBC (4.40-5.90) Mil/uL Hgb (12.0-18.0) g/dL Hct (35.0-51.0) % MCV (80.0-94.0) fL MCH (27.0-31.0) pg MCHC (33.0-37.0) g/dL RDW (11.5-14.5) % Plt Count (130-400) K/uL MPV (7.2-11.7) fL Neut % (Auto) (50.0-75.0) % Lymph % (Auto) (20.0-40.0) % [place] % (Auto) (0.0-10.0) % Eos % (Auto) (0.0-4.0) % Baso % (Auto) (0.0-2.0) % Neut # (Auto) (1.8-7.0) K/uL Lymph # (Auto) (1.0-4.3) K/uL [place] # (Auto) (0.0-0.8) K/uL Eos # (Auto) (0.0-0.7) K/uL Baso # (Auto) (0.0-0.2) K/uL APTT (21-34) SECONDS Sodium 143 (132-148) mmol/L Potassium 3.0 L (3.6-5.2) mmol/L Chloride 106 (98-107) mmol/L Carbon Dioxide 27 (22-30) mmol/L Anion Gap 13 (10-20) BUN 5 L (9-20) mg/dL Creatinine 0.6 L (0.8-1.5) mg/dL Est GFR ( Amer) > 60 Est GFR (Non-Af Amer) > 60 POC Glucose (mg/dL) 89 119 H (65-110) mg/dL Random Glucose 87 (75-110) mg/dL Lactic Acid (0.7-2.1) mmol/L Calcium 8.7 (8.6-10.4) mg/dl Phosphorus 2.8 (2.5-4.5) mg/dL Magnesium 2.3 (1.6-2.3) mg/dL Total Bilirubin 1.8 H (0.2-1.3) mg/dL AST 34 (17-59) U/L ALT 18 L D (21-72) U/L Alkaline Phosphatase 76 (38-126) U/L Total Protein 6.8 (6.3-8.3) g/dL Albumin 3.4 L D (3.5-5.0) g/dL Globulin 3.5 (2.2-3.9) gm/dL Albumin/Globulin Ratio 1.0 (1.0-2.1) 07/09/17 07/09/17 Range/Units 19:49 18:03 WBC (4.8-10.8) K/uL RBC (4.40-5.90) Mil/uL Hgb (12.0-18.0) g/dL Hct (35.0-51.0) % MCV (80.0-94.0) fL MCH (27.0-31.0) pg MCHC (33.0-37.0) g/dL RDW (11.5-14.5) % Plt Count (130-400) K/uL MPV (7.2-11.7) fL Neut % (Auto) (50.0-75.0) % Lymph % (Auto) (20.0-40.0) % [place] % (Auto) (0.0-10.0) % Eos % (Auto) (0.0-4.0) % Baso % (Auto) (0.0-2.0) % Neut # (Auto) (1.8-7.0) K/uL Lymph # (Auto) (1.0-4.3) K/uL [place] # (Auto) (0.0-0.8) K/uL Eos # (Auto) (0.0-0.7) K/uL Baso # (Auto) (0.0-0.2) K/uL APTT (21-34) SECONDS Sodium (132-148) mmol/L Potassium (3.6-5.2) mmol/L Chloride (98-107) mmol/L Carbon Dioxide (22-30) mmol/L Anion Gap (10-20) BUN (9-20) mg/dL Creatinine (0.8-1.5) mg/dL Est GFR ( Amer) Est GFR (Non-Af Amer) POC Glucose (mg/dL) 85 (65-110) mg/dL Random Glucose (75-110) mg/dL Lactic Acid 0.7 (0.7-2.1) mmol/L Calcium (8.6-10.4) mg/dl Phosphorus (2.5-4.5) mg/dL Magnesium (1.6-2.3) mg/dL Total Bilirubin (0.2-1.3) mg/dL AST (17-59) U/L ALT (21-72) U/L Alkaline Phosphatase (38-126) U/L Total Protein (6.3-8.3) g/dL Albumin (3.5-5.0) g/dL Globulin (2.2-3.9) gm/dL Albumin/Globulin Ratio (1.0-2.1) Laboratory Results - last 24 hr 07/09/17 07/09/17 07/10/17 18:03 19:49 00:25 WBC RBC Hgb Hct MCV MCH MCHC RDW Plt Count MPV Neut % (Auto) Lymph % (Auto) [place] % (Auto) Eos % (Auto) Baso % (Auto) Neut # (Auto) Lymph # (Auto) [place] # (Auto) Eos # (Auto) Baso # (Auto) APTT Sodium Potassium Chloride Carbon Dioxide Anion Gap BUN Creatinine Est GFR ( Amer) Est GFR (Non-Af Amer) POC Glucose (mg/dL) 85 119 H Random Glucose Lactic Acid 0.7 Calcium Phosphorus Magnesium Total Bilirubin AST ALT Alkaline Phosphatase Total Protein Albumin Globulin Albumin/Globulin Ratio 07/10/17 07/10/17 07/10/17 06:28 06:41 06:44 WBC RBC Hgb Hct MCV MCH MCHC RDW Plt Count MPV Neut % (Auto) Lymph % (Auto) [place] % (Auto) Eos % (Auto) Baso % (Auto) Neut # (Auto) Lymph # (Auto) [place] # (Auto) Eos # (Auto) Baso # (Auto) APTT 22 Sodium 143 Potassium 3.0 L Chloride 106 Carbon Dioxide 27 Anion Gap 13 BUN 5 L Creatinine 0.6 L Est GFR ( Amer) > 60 Est GFR (Non-Af Amer) > 60 POC Glucose (mg/dL) 89 Random Glucose 87 Lactic Acid Calcium 8.7 Phosphorus 2.8 Magnesium 2.3 Total Bilirubin 1.8 H AST 34 ALT 18 L D Alkaline Phosphatase 76 Total Protein 6.8 Albumin 3.4 L D Globulin 3.5 Albumin/Globulin Ratio 1.0 07/10/17 07/10/17 06:44 12:12 WBC 8.5 RBC 4.37 L Hgb 12.8 Hct 38.8 MCV 88.6 MCH 29.3 MCHC 33.0 RDW 15.5 H Plt Count 100 L D MPV 8.3 Neut % (Auto) 67.8 Lymph % (Auto) 19.3 L [place] % (Auto) 11.7 H Eos % (Auto) 0.7 Baso % (Auto) 0.5 Neut # (Auto) 5.8 Lymph # (Auto) 1.6 [place] # (Auto) 1.0 H Eos # (Auto) 0.1 Baso # (Auto) 0.0 APTT Sodium Potassium Chloride Carbon Dioxide Anion Gap BUN Creatinine Est GFR ( Amer) Est GFR (Non-Af Amer) POC Glucose (mg/dL) 83 Random Glucose Lactic Acid Calcium Phosphorus Magnesium Total Bilirubin AST ALT Alkaline Phosphatase Total Protein Albumin Globulin Albumin/Globulin Ratio Critical Care Progress Note - Nutrition Nutrition: Nutrition Category Date Time Status Liquid Diet [DIET] Diets 07/10/17 Lunch Active Attending/Attestation - Attestation I have personally seen and examined this patient.: Yes I have fully participated in the care of the patient.: Yes I have reviewed all pertinent clinical information: Yes Notes (Text): 07/10/17 17:30 Patient seen and examined in the intensive care unit. Continue Precedex drip Banana bag Potassium supplement Ativan as needed and start librium
[2017-07-10] MEDS ORDERED: Folic Acid 1 MG, Thiamine 100 MG, Multivitamin (MVI) 10 ML in Dextrose 5% In Water 1,00... IV SCH (09:30)
[2017-07-10] MEDS: Silver Sulfadiazine 1% Cream (20 gm) TOP SCH (09:39)
[2017-07-10] MEDS: Thiamine 100 mg/ml Inj IV SCH (09:39)
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
--- NOTE | 2017-07-10 14:10 | CP.PCM.PN ---
Subjective - Date & Time of Evaluation Date of Evaluation: 07/10/17 Time of Evaluation: 14:09 - Subjective Subjective: AFEBRILE WOUND CULTURE POS, GRAM -VE ON IV AB D/W ID Objective - Vital Signs/Intake and Output Vital Signs (last 24 hours): Temp Pulse Resp BP Pulse Ox 98.7 F 92 H 34 H 100/61 96 07/10/17 08:00 07/10/17 13:08 07/10/17 13:08 07/10/17 13:08 07/10/17 13:08 Intake and Output: 07/10/17 07/10/17 11:59 23:59 Intake Total 1174.8 560 Output Total 600 375 Balance 574.8 185 - Medications Medications: Current Medications Chlordiazepoxide (Librium) 25 mg PO Q6 LITA PRN Reason: Taper Stop: 07/14/17 09:59 Last Admin: 07/10/17 12:03 Dose: Not Given Heparin Sodium (Porcine) (Heparin) 5,000 units SC Q12H [facility] Last Admin: 07/10/17 09:38 Dose: 5,000 units Folic Acid 1 mg/ Sodium (Chloride) 100.2 mls @ 60 mls/hr IV DAILY [facility] Last Admin: 07/10/17 10:44 Dose: 60 mls/hr Dexmedetomidine HCl 200 mcg/ (Sodium Chloride) 50 mls @ 3.4 mls/hr IV TITR PRN ; Protocol; 0.2 MCG/KG/HR PRN Reason: Symptoms of alcohol withdrawl Last Titration: 07/10/17 11:29 Dose: 0 mcg/kg/hr, 0 mls/hr Piperacillin Sod/Tazobactam Sod (Zosyn 3.375 Gm Iv Premix) 3.375 gm in 50 mls @ 100 mls/hr IVPB Q6H LITA PRN Reason: Protocol Last Admin: 07/10/17 09:40 Dose: 100 mls/hr Daptomycin 410 mg/ Sodium (Chloride) 100 mls @ 100 mls/hr IV Q24H [facility] Stop: 07/14/17 20:01 Last Admin: 07/09/17 20:30 Dose: 100 mls/hr Folic Acid 1 mg/ Thiamine HCl 100 mg/ Multivitamins/Vitamin C 10 ml/ Dextrose 1 ,011.2 mls @ 100 mls/hr IV .Q10H7M [facility] Stop: 07/10/17 19:36 Last Admin: 07/10/17 13:21 Dose: 100 mls/hr Lorazepam (Ativan) 2 mg IVP Q3H PRN PRN Reason: Symptoms of alcohol withdrawl Pantoprazole Sodium (Protonix Inj) 40 mg IVP DAILY [facility] Last Admin: 07/10/17 09:39 Dose: 40 mg Silver Sulfadiazine (Silvadene 1% 20 Gm) 0 ea TOP DAILY [facility] Last Admin: 07/10/17 09:39 Dose: 1 gm Thiamine HCl (Vitamin B1 Inj) 100 mg IV DAILY [facility] Last Admin: 07/10/17 09:39 Dose: 100 mg - Labs Labs: 07/10/17 06:44 07/10/17 06:41 APTT 22 SECONDS (21-34) 07/10/17 06:44
[2017-07-10] MEDS ORDERED: Potassium Chloride 20 mEq ER Tab PO ONE (15:00)
--- NOTE | 2017-07-10 15:28 | CARD ---
APPROVED REPORT EKG Measurement Heart [id number] <Conclusion> Sinus tachycardia Possible Left atrial enlargement Nonspecific ST abnormality Abnormal ECG
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
[2017-07-11] MEDS: Piperacill/Tazo 3.375gm in Dex 3.375 GM/50 ML BAG IVPB SCH ×4 (03:22→22:36)
[2017-07-11 06:57] LABS: BASO % 0.3 % (0.0-2.0); EOS # 0.1 K/uL (0.0-0.7); EOS % 1.7 % (0.0-4.0); HEMOGLOBIN 12.8 g/dL (12.0-18.0); LYMPH # 1.8 K/uL (1.0-4.3); LYMPH % 28.9 % (20.0-40.0); MEAN CELL VOLUME 88.6 fL (80.0-94.0); MEAN CORPUSCULAR HEMOGLOBIN 29.4 pg (27.0-31.0); MEAN CORPUSCULAR HGB CONC 33.2 g/dL (33.0-37.0); MEAN PLATELET VOLUME 8.3 fL (7.2-11.7); MONO # 0.7 K/uL (0.0-0.8); MONO % 11.4 % (0.0-10.0); NEUT # 3.6 K/uL (1.8-7.0); NEUT % 57.7 % (50.0-75.0); RBC 4.36 Mil/uL (4.40-5.90); RED CELL DISTRIBUTION WIDTH 15.6 % (11.5-14.5); WHITE BLOOD COUNT 6.3 K/uL (4.8-10.8)
[2017-07-11 07:34] LABS: ALB/GLOB RATIO 1.1 (1.0-2.1); ALBUMIN 3.5 g/dL (3.5-5.0); ALT/SGPT 16 U/L (21-72); AST/SGOT 37 U/L (17-59); BLOOD UREA NITROGEN 3 mg/dL (9-20); CALCIUM 8.8 mg/dl (8.6-10.4); GFR AFRICAN-AMERICAN > 60; GFR NON-AFRICAN AMERICAN > 60
[2017-07-11] MEDS: Potassium Chloride 20 mEq ER Tab PO SCH ×2 (08:59→13:00)
[2017-07-11] MEDS: Thiamine 100 mg/ml Inj IV SCH (09:55)
[2017-07-11] MEDS ORDERED: Folic Acid 1 MG, Thiamine 100 MG, Multivitamin (MVI) 10 ML in Dextrose 5% In Water 1,00... IV SCH (10:15)
--- NOTE | 2017-07-11 10:37 | CP.CCUPN ---
<Pasha Stroud - Last Filed: 07/11/17 10:30> CCU Subjective - Physician Review Subjective (Free Text): 07/10/17 08:35 Patient seen and examined. Patient is more awake today and is not currently experiencing tremors. He states that his last drink was on Sunday. Patient spiked fever last night Tmax 101.7. 07/11/17 10:30 Patient seen and examined. Patient has no acute complaints at this time. He is not tremulous and vitals are stable this morning. CCU Objective - Vital Signs / Intake & Output Vital Signs (Last 4 hours): Vital Signs Temp Pulse Resp BP Pulse Ox 07/11/17 09:14 85 18 102/64 99 07/11/17 09:00 94 H 12 98 07/11/17 08:14 88 22 113/76 95 07/11/17 08:00 98.7 F 86 22 95 07/11/17 07:14 85 22 107/67 95 07/11/17 07:00 86 18 96 Intake and Output (Last 8hrs): Intake & Output 07/10/17 07/11/17 07/11/17 22:59 06:59 14:59 Intake Total 850 840 100 Output Total 1100 Balance 850 -260 100 Weight 151 lb 0.2 oz Intake: Intake, IV Amount 850 600 100 Left Forearm 50 Left Hand 800 150 Right Forearm 450 100 Oral 240 Output: Urine 1100 Urine, Voided 1100 Other: # Voids Urine, Voided 1 1 # Bowel Movements 1 1 - Physical Exam Head: Positive for: Atraumatic, Other (depression along site of prior craniotomy ) Pupils: Positive for: PERRL Extroacular Muscles: Positive for: EOMI Mouth: Positive for: Moist Mucous Membranes Respiratory/Chest: Positive for: Clear to Auscultation. Negative for: Wheezes, Rales, Rhonchi Cardiovascular: Positive for: Regular Rate and Rhythm, Normal S1, S2 Abdomen: Positive for: Distention, Normal Bowel Sounds. Negative for: Tenderness Lower Extremity: Positive for: Other (chronic cellulititic changes in both legs. dressings clean, dry, intact). Negative for: Edema Neurological: Positive for: GCS=15 Skin: Positive for: Warm, Dry Psychiatric: Positive for: Alert, Oriented x 3 - Medications Active Medications: Active Medications Generic Name Dose Route Start Last Admin Trade Name Freq PRN Reason Stop Dose Admin Chlordiazepoxide 25 mg 07/10/17 10:00 07/11/17 06:29 Librium PO 07/14/17 09:59 25 mg TID LITA Administration Taper Heparin Sodium (Porcine) 5,000 units 07/09/17 22:00 07/11/17 09:55 Heparin SC 5,000 units Q12H LITA Administration Folic Acid 1 mg/ Sodium 100.2 mls @ 60 mls/hr 07/10/17 10:00 07/11/17 09:57 Chloride IV 60 mls/hr DAILY LITA Administration Dexmedetomidine HCl 200 mcg/ 50 mls @ 3.4 mls/hr 07/09/17 17:41 07/10/17 11: 29 Sodium Chloride IV 0 mcg/kg/hr TITR PRN 0 mls/hr Symptoms of alcohol withdrawl Titration Protocol 0.2 MCG/KG/HR Piperacillin Sod/Tazobactam Sod 3.375 gm in 50 mls @ 100 mls/hr 07/09/17 22: 00 07/11/17 09:56 Zosyn 3.375 Gm Iv Premix IVPB 100 mls/hr Q6H LITA Administration Protocol Daptomycin 410 mg/ Sodium 100 mls @ 100 mls/hr 07/09/17 20:00 07/10/17 20:23 Chloride IV 07/14/17 20:01 100 mls/hr Q24H LITA Administration Folic Acid 1 mg/ Thiamine HCl 1,011.2 mls @ 75 mls/hr 07/11/17 10:15 100 mg/ Multivitamins/Vitamin IV 07/11/17 23:43 C 10 ml/ Dextrose .[id number] LITA Levetiracetam 500 mg 07/11/17 10:00 07/11/17 09:54 Keppra PO 500 mg BID LITA Administration Lorazepam 2 mg 07/09/17 17:03 Ativan IVP Q3H PRN Symptoms of alcohol withdrawl Pantoprazole Sodium 40 mg 07/09/17 18:00 07/11/17 09:54 Protonix Inj IVP 40 mg DAILY LITA Administration Potassium Chloride 40 meq 07/11/17 08:30 07/11/17 08:59 K-Dur 20 Meq Er Tab PO 07/11/17 12:31 40 meq Q4H LITA Administration Silver Sulfadiazine 0 ea 07/09/17 14:45 07/10/17 09:39 Silvadene 1% 20 Gm TOP 1 gm DAILY LITA Administration Thiamine HCl 100 mg 07/10/17 10:00 07/11/17 09:55 Vitamin B1 Inj IV 100 mg DAILY LITA Administration - Patient Studies Lab Studies: Microbiology Studies 07/09/17 15:30 Gram Stain - Final Leg - Right Wound Culture - Final Citrobacter Freundii Beta Hemolytic Strep Group B 07/09/17 17:10 MRSA Culture (Admit) - Final Naris MRSA NOT DETECTED 07/09/17 15:40 Blood Culture - Preliminary Blood NO GROWTH AFTER 24 HOURS 07/09/17 15:10 Blood Culture - Preliminary Blood NO GROWTH AFTER 24 HOURS Lab Studies 07/11/17 07/11/17 07/10/17 Range/Units 06:54 06:54 12:12 WBC 6.3 (4.8-10.8) K/uL RBC 4.36 L (4.40-5.90) Mil/uL Hgb 12.8 (12.0-18.0) g/dL Hct 38.6 (35.0-51.0) % MCV 88.6 (80.0-94.0) fL MCH 29.4 (27.0-31.0) pg MCHC 33.2 (33.0-37.0) g/dL RDW 15.6 H (11.5-14.5) % Plt Count 87 L (130-400) K/uL MPV 8.3 (7.2-11.7) fL Neut % (Auto) 57.7 (50.0-75.0) % Lymph % (Auto) 28.9 (20.0-40.0) % Fountain % (Auto) 11.4 H (0.0-10.0) % Eos % (Auto) 1.7 (0.0-4.0) % Baso % (Auto) 0.3 (0.0-2.0) % Neut # (Auto) 3.6 (1.8-7.0) K/uL Lymph # (Auto) 1.8 (1.0-4.3) K/uL Fountain # (Auto) 0.7 (0.0-0.8) K/uL Eos # (Auto) 0.1 (0.0-0.7) K/uL Baso # (Auto) 0.0 (0.0-0.2) K/uL Sodium 140 (132-148) mmol/L Potassium 3.0 L (3.6-5.2) mmol/L Chloride 104 (98-107) mmol/L Carbon Dioxide 26 (22-30) mmol/L Anion Gap 14 (10-20) BUN 3 L (9-20) mg/dL Creatinine 0.6 L (0.8-1.5) mg/dL Est GFR ( Amer) > 60 Est GFR (Non-Af Amer) > 60 POC Glucose (mg/dL) 83 (65-110) mg/dL Random Glucose 92 (75-110) mg/dL Calcium 8.8 (8.6-10.4) mg/dl Phosphorus 3.6 (2.5-4.5) mg/dL Magnesium 1.9 (1.6-2.3) mg/dL Total Bilirubin 1.3 (0.2-1.3) mg/dL AST 37 (17-59) U/L ALT 16 L (21-72) U/L Alkaline Phosphatase 76 (38-126) U/L Total Protein 6.8 (6.3-8.3) g/dL Albumin 3.5 (3.5-5.0) g/dL Globulin 3.3 (2.2-3.9) gm/dL Albumin/Globulin Ratio 1.1 (1.0-2.1) Laboratory Results - last 24 hr 07/10/17 07/11/17 07/11/17 12:12 06:54 06:54 WBC 6.3 RBC 4.36 L Hgb 12.8 Hct 38.6 MCV 88.6 MCH 29.4 MCHC 33.2 RDW 15.6 H Plt Count 87 L MPV 8.3 Neut % (Auto) 57.7 Lymph % (Auto) 28.9 Fountain % (Auto) 11.4 H Eos % (Auto) 1.7 Baso % (Auto) 0.3 Neut # (Auto) 3.6 Lymph # (Auto) 1.8 Fountain # (Auto) 0.7 Eos # (Auto) 0.1 Baso # (Auto) 0.0 Sodium 140 Potassium 3.0 L Chloride 104 Carbon Dioxide 26 Anion Gap 14 BUN 3 L Creatinine 0.6 L Est GFR ( Amer) > 60 Est GFR (Non-Af Amer) > 60 POC Glucose (mg/dL) 83 Random Glucose 92 Calcium 8.8 Phosphorus 3.6 Magnesium 1.9 Total Bilirubin 1.3 AST 37 ALT 16 L Alkaline Phosphatase 76 Total Protein 6.8 Albumin 3.5 Globulin 3.3 Albumin/Globulin Ratio 1.1 Fingerstick Blood Sugar Results: 83 Critical Care Progress Note - Nutrition Nutrition: Nutrition Category Date Time Status Liquid Diet [DIET] Diets 07/10/17 Lunch Active Assessment/Plan - Assessment and Plan (Free Text) Assessment: This is a 57 year old homeless male with PMHx alcohol abuse who was admitted to the ICU for delirium tremens and alcohol withdrawal seizures. Patient now awake and alert. States last drink was on Sunday. Stable for downgrade to med-surg. Neuro Assessment: Alcohol withdrawal seizures, delirium tremens, History of brain tumor s/p resection, Hx of seizure disorder Weaned off of Precedex. Currently on Librium taper. Ativan 2 mg IV Q3H prn withdrawal symptoms A third and final banana bag for today Thiamine, Folic Acid, Multivitamins Keppra 500 mg PO BID Cardio No active issues Pulm Saturating well and maintaining airway at this time GI Heart Healthy Diet Protonix 40 mg PO daily Infectious Disease Assessment: LE wounds ID on consult Podiatry on consult Zosyn 3.375 gm Q6H Daptomycin 410 mg Q24H Prophylaxis Heparin SC Q12H Protonix 40 mg PO daily Disposition: Stable for downgrade to med-surg Discussed with Dr. Orellana <Stefan Orellana - Last Filed: 07/11/17 17:15> CCU Objective - Vital Signs / Intake & Output Vital Signs (Last 4 hours): Vital Signs Pulse Resp 07/11/17 14:00 88 26 H Intake and Output (Last 8hrs): Intake & Output 07/11/17 07/11/17 07/11/17 06:59 14:59 22:59 Intake Total 840 570 Output Total 1100 701 Balance -260 -131 Weight 151 lb 0.2 oz Intake: Intake, IV Amount 600 450 Left Forearm 200 Left Hand 150 Right Forearm 450 250 Oral 240 120 Output: Urine 1100 700 Urine, Voided 1100 700 Stool 1 Other: # Voids Urine, Voided 1 # Bowel Movements 1 - Medications Active Medications: Active Medications Generic Name Dose Route Start Last Admin Trade Name Freq PRN Reason Stop Dose Admin Chlordiazepoxide 25 mg 07/10/17 10:00 07/11/17 11:18 Librium PO 07/14/17 09:59 25 mg TID LITA Administration Taper Heparin Sodium (Porcine) 5,000 units 07/09/17 22:00 07/11/17 09:55 Heparin SC 5,000 units Q12H LITA Administration Folic Acid 1 mg/ Sodium 100.2 mls @ 60 mls/hr 07/10/17 10:00 07/11/17 09:57 Chloride IV 60 mls/hr DAILY LITA Administration Dexmedetomidine HCl 200 mcg/ 50 mls @ 3.4 mls/hr 07/09/17 17:41 07/10/17 11: 29 Sodium Chloride IV 0 mcg/kg/hr TITR PRN 0 mls/hr Symptoms of alcohol withdrawl Titration Protocol 0.2 MCG/KG/HR Piperacillin Sod/Tazobactam Sod 3.375 gm in 50 mls @ 100 mls/hr 07/09/17 22: 00 07/11/17 09:56 Zosyn 3.375 Gm Iv Premix IVPB 100 mls/hr Q6H LITA Administration Protocol Daptomycin 410 mg/ Sodium 100 mls @ 100 mls/hr 07/09/17 20:00 07/10/17 20:23 Chloride IV 07/14/17 20:01 100 mls/hr Q24H LITA Administration Folic Acid 1 mg/ Thiamine HCl 1,011.2 mls @ 75 mls/hr 07/11/17 10:15 12:55 100 mg/ Multivitamins/Vitamin IV 07/11/17 23:43 75 mls/hr C 10 ml/ Dextrose .[id number] LITA Administration Levetiracetam 500 mg 07/11/17 10:00 07/11/17 09:54 Keppra PO 500 mg BID LITA Administration Lorazepam 2 mg 07/09/17 17:03 Ativan IVP Q3H PRN Symptoms of alcohol withdrawl Pantoprazole Sodium 40 mg 07/09/17 18:00 07/11/17 09:54 Protonix Inj IVP 40 mg DAILY LITA Administration Silver Sulfadiazine 0 ea 07/09/17 14:45 07/11/17 12:57 Silvadene 1% 20 Gm TOP 1 gm DAILY LITA Administration Thiamine HCl 100 mg 07/10/17 10:00 07/11/17 09:55 Vitamin B1 Inj IV 100 mg DAILY LITA Administration - Patient Studies Lab Studies: Microbiology Studies 07/09/17 15:30 Gram Stain - Final Leg - Right Wound Culture - Final Citrobacter Freundii Beta Hemolytic Strep Group B 07/09/17 17:10 MRSA Culture (Admit) - Final Naris MRSA NOT DETECTED 07/09/17 15:40 Blood Culture - Preliminary Blood NO GROWTH AFTER 24 HOURS 07/09/17 15:10 Blood Culture - Preliminary Blood NO GROWTH AFTER 24 HOURS Lab Studies 07/11/17 07/11/17 Range/Units 06:54 06:54 WBC 6.3 (4.8-10.8) K/uL RBC 4.36 L (4.40-5.90) Mil/uL Hgb 12.8 (12.0-18.0) g/dL Hct 38.6 (35.0-51.0) % MCV 88.6 (80.0-94.0) fL MCH 29.4 (27.0-31.0) pg MCHC 33.2 (33.0-37.0) g/dL RDW 15.6 H (11.5-14.5) % Plt Count 87 L (130-400) K/uL MPV 8.3 (7.2-11.7) fL Neut % (Auto) 57.7 (50.0-75.0) % Lymph % (Auto) 28.9 (20.0-40.0) % Fountain % (Auto) 11.4 H (0.0-10.0) % Eos % (Auto) 1.7 (0.0-4.0) % Baso % (Auto) 0.3 (0.0-2.0) % Neut # (Auto) 3.6 (1.8-7.0) K/uL Lymph # (Auto) 1.8 (1.0-4.3) K/uL Fountain # (Auto) 0.7 (0.0-0.8) K/uL Eos # (Auto) 0.1 (0.0-0.7) K/uL Baso # (Auto) 0.0 (0.0-0.2) K/uL Sodium 140 (132-148) mmol/L Potassium 3.0 L (3.6-5.2) mmol/L Chloride 104 (98-107) mmol/L Carbon Dioxide 26 (22-30) mmol/L Anion Gap 14 (10-20) BUN 3 L (9-20) mg/dL Creatinine 0.6 L (0.8-1.5) mg/dL Est GFR ( Amer) > 60 Est GFR (Non-Af Amer) > 60 Random Glucose 92 (75-110) mg/dL Calcium 8.8 (8.6-10.4) mg/dl Phosphorus 3.6 (2.5-4.5) mg/dL Magnesium 1.9 (1.6-2.3) mg/dL Total Bilirubin 1.3 (0.2-1.3) mg/dL AST 37 (17-59) U/L ALT 16 L (21-72) U/L Alkaline Phosphatase 76 (38-126) U/L Total Protein 6.8 (6.3-8.3) g/dL Albumin 3.5 (3.5-5.0) g/dL Globulin 3.3 (2.2-3.9) gm/dL Albumin/Globulin Ratio 1.1 (1.0-2.1) Laboratory Results - last 24 hr 07/11/17 07/11/17 06:54 06:54 WBC 6.3 RBC 4.36 L Hgb 12.8 Hct 38.6 MCV 88.6 MCH 29.4 MCHC 33.2 RDW 15.6 H Plt Count 87 L MPV 8.3 Neut % (Auto) 57.7 Lymph % (Auto) 28.9 Fountain % (Auto) 11.4 H Eos % (Auto) 1.7 Baso % (Auto) 0.3 Neut # (Auto) 3.6 Lymph # (Auto) 1.8 Fountain # (Auto) 0.7 Eos # (Auto) 0.1 Baso # (Auto) 0.0 Sodium 140 Potassium 3.0 L Chloride 104 Carbon Dioxide 26 Anion Gap 14 BUN 3 L Creatinine 0.6 L Est GFR ( Amer) > 60 Est GFR (Non-Af Amer) > 60 Random Glucose 92 Calcium 8.8 Phosphorus 3.6 Magnesium 1.9 Total Bilirubin 1.3 AST 37 ALT 16 L Alkaline Phosphatase 76 Total Protein 6.8 Albumin 3.5 Globulin 3.3 Albumin/Globulin Ratio 1.1 Critical Care Progress Note - Nutrition Nutrition: Nutrition Category Date Time Status Heart Healthy Diet [DIET] Diets 07/11/17 Lunch Active Attending/Attestation - Attestation I have personally seen and examined this patient.: Yes I have fully participated in the care of the patient.: Yes I have reviewed all pertinent clinical information: Yes Notes (Text): 07/11/17 17:14 patient seen and examined in the intensive care unit. patient alert and oriented 3 Continue Librium and Ativan as needed Stable for transfer to floor Potassium supplement
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
[2017-07-11] MEDS: Silver Sulfadiazine 1% Cream (20 gm) TOP SCH (12:57)
--- NOTE | 2017-07-11 14:11 | CP.PCM.PN ---
Subjective - Date & Time of Evaluation Date of Evaluation: 07/11/17 Time of Evaluation: 14:10 - Subjective Subjective: RESTLESS GETTING OUT OF BED VS STABLE WOUND LEG SHOWS CITROBACRTM FERRRUNDII IV AB Objective - Vital Signs/Intake and Output Vital Signs (last 24 hours): Temp Pulse Resp BP Pulse Ox 98.7 F 88 26 H 113/76 92 L 07/11/17 08:00 07/11/17 14:00 07/11/17 14:00 07/11/17 12:14 07/11/17 12:14 Intake and Output: 07/11/17 07/11/17 11:59 23:59 Intake Total 1210 150 Output Total 1500 1 Balance -290 149 - Medications Medications: Current Medications Chlordiazepoxide (Librium) 25 mg PO TID LITA PRN Reason: Taper Stop: 07/14/17 09:59 Last Admin: 07/11/17 11:18 Dose: 25 mg Heparin Sodium (Porcine) (Heparin) 5,000 units SC Q12H [facility] Last Admin: 07/11/17 09:55 Dose: 5,000 units Folic Acid 1 mg/ Sodium (Chloride) 100.2 mls @ 60 mls/hr IV DAILY [facility] Last Admin: 07/11/17 09:57 Dose: 60 mls/hr Dexmedetomidine HCl 200 mcg/ (Sodium Chloride) 50 mls @ 3.4 mls/hr IV TITR PRN ; Protocol; 0.2 MCG/KG/HR PRN Reason: Symptoms of alcohol withdrawl Last Titration: 07/10/17 11:29 Dose: 0 mcg/kg/hr, 0 mls/hr Piperacillin Sod/Tazobactam Sod (Zosyn 3.375 Gm Iv Premix) 3.375 gm in 50 mls @ 100 mls/hr IVPB Q6H LITA PRN Reason: Protocol Last Admin: 07/11/17 09:56 Dose: 100 mls/hr Daptomycin 410 mg/ Sodium (Chloride) 100 mls @ 100 mls/hr IV Q24H [facility] Stop: 07/14/17 20:01 Last Admin: 07/10/17 20:23 Dose: 100 mls/hr Folic Acid 1 mg/ Thiamine HCl 100 mg/ Multivitamins/Vitamin C 10 ml/ Dextrose 1 ,011.2 mls @ 75 mls/hr IV .[id number] [facility] Stop: 07/11/17 23:43 Last Admin: 07/11/17 12:55 Dose: 75 mls/hr Levetiracetam (Keppra) 500 mg PO BID [facility] Last Admin: 07/11/17 09:54 Dose: 500 mg Lorazepam (Ativan) 2 mg IVP Q3H PRN PRN Reason: Symptoms of alcohol withdrawl Pantoprazole Sodium (Protonix Inj) 40 mg IVP DAILY [facility] Last Admin: 07/11/17 09:54 Dose: 40 mg Silver Sulfadiazine (Silvadene 1% 20 Gm) 0 ea TOP DAILY [facility] Last Admin: 07/11/17 12:57 Dose: 1 gm Thiamine HCl (Vitamin B1 Inj) 100 mg IV DAILY [facility] Last Admin: 07/11/17 09:55 Dose: 100 mg - Labs Labs: 07/11/17 06:54 07/11/17 06:54 APTT 22 SECONDS (21-34) 07/10/17 06:44 Assessment and Plan (1) Alcohol withdrawal Status: Acute (2) Cellulitis of leg, right Status: Acute
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
[2017-07-12] MEDS: Ciprofloxacin 400mg/200ml D5W 400 MG/200 ML BAG IVPB SCH ×2 (04:05→15:30)
[2017-07-12] MEDS: AMPicillin 2 GM in Sodium Chloride 100 ML IVPB SCH ×3 (05:44→21:56)
[2017-07-12] MEDS: Thiamine 100 mg/ml Inj IV SCH (09:39)
[2017-07-12] MEDS: Silver Sulfadiazine 1% Cream (20 gm) TOP SCH (09:45)
--- NOTE | 2017-07-12 11:32 | CP.PCM.PN ---
Subjective - Date & Time of Evaluation Date of Evaluation: 07/12/17 Time of Evaluation: 11:32 - Subjective Subjective: Podiatry Progress Note- Dr. Garcia 57 year old male was seen at bedside in the ED for right lower extremity ulcers. He states that he is feeling better today. Currently denies any pain or discomfort to the right lower ext. States that he just changed his dressing and does not want anyone to touch it. Denies f/n/v/c/sob/cp at this time. Objective - Vital Signs/Intake and Output Vital Signs (last 24 hours): Temp Pulse Resp BP Pulse Ox 98.1 F 80 20 119/70 96 07/12/17 07:41 07/12/17 07:41 07/12/17 07:41 07/12/17 07:41 07/12/17 07:41 Intake and Output: 07/12/17 07/12/17 06:59 18:59 Intake Total 840 850 Output Total 1000 Balance -160 850 - Medications Medications: Current Medications Chlordiazepoxide (Librium) 25 mg PO BID [facility] PRN Reason: Taper Stop: 07/14/17 09:59 Last Admin: 07/12/17 09:41 Dose: 25 mg Heparin Sodium (Porcine) (Heparin) 5,000 units SC Q12H [facility] Last Admin: 07/12/17 09:40 Dose: 5,000 units Folic Acid 1 mg/ Sodium (Chloride) 100.2 mls @ 60 mls/hr IV DAILY [facility] Last Admin: 07/12/17 10:30 Dose: 60 mls/hr Dexmedetomidine HCl 200 mcg/ (Sodium Chloride) 50 mls @ 3.4 mls/hr IV TITR PRN ; Protocol; 0.2 MCG/KG/HR PRN Reason: Symptoms of alcohol withdrawl Last Titration: 07/10/17 11:29 Dose: 0 mcg/kg/hr, 0 mls/hr Ciprofloxacin (Cipro 400mg/200ml Dsw) 400 mg in 200 mls @ 133 mls/hr IVPB Q12H [facility] PRN Reason: Protocol Last Admin: 07/12/17 04:05 Dose: 133 mls/hr Ampicillin 2 gm/ Sodium (Chloride) 100 mls @ 50 mls/hr IVPB Q8H [facility] PRN Reason: Protocol Last Admin: 07/12/17 05:44 Dose: 50 mls/hr Levetiracetam (Keppra) [address] [facility] Last Admin: 07/12/17 09:39 Dose: 500 mg Lorazepam (Ativan) 2 mg IVP Q3H PRN PRN Reason: Symptoms of alcohol withdrawl Pantoprazole Sodium (Protonix Inj) [address] [facility] Last Admin: 07/12/17 09:39 Dose: 40 mg Silver Sulfadiazine (Silvadene 1% 20 Gm) [address] [facility] Last Admin: 07/12/17 09:45 Dose: 1 gm Thiamine HCl (Vitamin B1 Inj) [address] 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 Garcia chart, labs, vitals reviewed; WBC 6.3 (07/11/17) wound cx: citrobacter freundii, beta hemolytic strep group b IV abx per ID dressings left c/d/i podiatry to follow patient while in house
--- NOTE | 2017-07-12 13:43 | CP.PCM.PN ---
Subjective - Date & Time of Evaluation Date of Evaluation: 07/12/17 Time of Evaluation: 13:42 - Subjective Subjective: AFEBRILE P/E WOUNDS ON EXT DECLINING WOUND CARE IV AB Objective - Vital Signs/Intake and Output Vital Signs (last 24 hours): Temp Pulse Resp BP Pulse Ox 98.1 F 80 20 119/70 96 07/12/17 07:41 07/12/17 07:41 07/12/17 07:41 07/12/17 07:41 07/12/17 07:41 Intake and Output: 07/12/17 07/12/17 11:59 23:59 Intake Total 1690 Output Total 1000 Balance 690 - Medications Medications: Current Medications Chlordiazepoxide (Librium) 25 mg PO BID [facility] PRN Reason: Taper Stop: 07/14/17 09:59 Last Admin: 07/12/17 09:41 Dose: 25 mg Heparin Sodium (Porcine) (Heparin) 5,000 units SC Q12H [facility] Last Admin: 07/12/17 09:40 Dose: 5,000 units Folic Acid 1 mg/ Sodium (Chloride) 100.2 mls @ 60 mls/hr IV DAILY [facility] Last Admin: 07/12/17 10:30 Dose: 60 mls/hr Dexmedetomidine HCl 200 mcg/ (Sodium Chloride) 50 mls @ 3.4 mls/hr IV TITR PRN ; Protocol; 0.2 MCG/KG/HR PRN Reason: Symptoms of alcohol withdrawl Last Titration: 07/10/17 11:29 Dose: 0 mcg/kg/hr, 0 mls/hr Ciprofloxacin (Cipro 400mg/200ml Dsw) 400 mg in 200 mls @ 133 mls/hr IVPB Q12H [facility] PRN Reason: Protocol Last Admin: 07/12/17 04:05 Dose: 133 mls/hr Ampicillin 2 gm/ Sodium (Chloride) 100 mls @ 50 mls/hr IVPB Q8H [facility] PRN Reason: Protocol Last Admin: 07/12/17 05:44 Dose: 50 mls/hr Levetiracetam (Keppra) 500 mg PO BID [facility] Last Admin: 07/12/17 09:39 Dose: 500 mg Lorazepam (Ativan) 2 mg IVP Q3H PRN PRN Reason: Symptoms of alcohol withdrawl Pantoprazole Sodium (Protonix Inj) 40 mg IVP DAILY [facility] Last Admin: 07/12/17 09:39 Dose: 40 mg Silver Sulfadiazine (Silvadene 1% 20 Gm) 0 ea TOP DAILY [facility] Last Admin: 07/12/17 09:45 Dose: 1 gm Thiamine HCl (Vitamin B1 Inj) 100 mg IV DAILY [facility] Last Admin: 07/12/17 09:39 Dose: 100 mg - Labs Labs: 07/11/17 06:54 07/11/17 06:54 APTT 22 SECONDS (21-34) 07/10/17 06:44 Assessment and Plan (1) Alcohol withdrawal Status: Acute (2) Cellulitis of leg, right Status: Acute
[2017-07-13] MEDS: Ciprofloxacin 400mg/200ml D5W 400 MG/200 ML BAG IVPB SCH ×2 (02:41→16:26)
[2017-07-13] MEDS: AMPicillin 2 GM in Sodium Chloride 100 ML IVPB SCH ×3 (05:05→21:06)
[2017-07-13 07:14] LABS: BASO % 0.5 % (0.0-2.0); EOS # 0.1 K/uL (0.0-0.7); HEMOGLOBIN 13.2 g/dL (12.0-18.0); LYMPH # 1.2 K/uL (1.0-4.3); LYMPH % 23.3 % (20.0-40.0); MEAN CELL VOLUME 88.4 fL (80.0-94.0); MEAN CORPUSCULAR HEMOGLOBIN 29.4 pg (27.0-31.0); MEAN CORPUSCULAR HGB CONC 33.3 g/dL (33.0-37.0); MEAN PLATELET VOLUME 8.5 fL (7.2-11.7); MONO # 0.7 K/uL (0.0-0.8); MONO % 13.5 % (0.0-10.0); NEUT # 3.2 K/uL (1.8-7.0); NEUT % 60.7 % (50.0-75.0); NRBC % 0.1 % (0.0-2.0); RBC 4.48 Mil/uL (4.40-5.90); RED CELL DISTRIBUTION WIDTH 15.4 % (11.5-14.5); WHITE BLOOD COUNT 5.2 K/uL (4.8-10.8)
[2017-07-13 07:36] LABS: ALBUMIN 3.5 g/dL (3.5-5.0); ALT/SGPT 22 U/L (21-72); AST/SGOT 31 U/L (17-59); BLOOD UREA NITROGEN 5 mg/dL (9-20); CALCIUM 8.7 mg/dl (8.6-10.4); GFR AFRICAN-AMERICAN > 60; GFR NON-AFRICAN AMERICAN > 60
[2017-07-13] MEDS ORDERED: Potassium Chloride 20 mEq ER Tab PO ONE (10:00)
[2017-07-13] MEDS: Silver Sulfadiazine 1% Cream (20 gm) TOP SCH (10:47)
[2017-07-13] MEDS: Thiamine 100 mg/ml Inj IV SCH (10:50)
--- NOTE | 2017-07-13 11:30 | NM ---
PROCEDURE: Ceretec white blood cell study HISTORY: right lower extremity wounds COMPARISON: 07/09/2017 right tibia, fibula TECHNIQUE: 16.5 mCi technetium 99 M Ceretec labeled white blood cells administered intravenously. FINDINGS: Accumulation of radionuclide in the soft tissues at the site of known cutaneous and subcutaneous injury/ARDS. No evidence of accumulation of radionuclide with respect to adjacent osseous structures IMPRESSION: Abnormal increased uptake cutaneous and subcutaneous locations posterior aspect of the right calf above the ankle and anteriorly lower right calf region. No abnormalities identified with respect to visualized osseous structures.
--- NOTE | 2017-07-13 13:49 | CP.PCM.PN ---
Subjective - Date & Time of Evaluation Date of Evaluation: 07/13/17 Time of Evaluation: 13:48 - Subjective Subjective: AFEBRILE WOUND CARE DONE ON IV AB Objective - Vital Signs/Intake and Output Vital Signs (last 24 hours): Temp Pulse Resp BP Pulse Ox 98.6 F 66 20 108/73 96 07/13/17 07:51 07/13/17 07:51 07/13/17 07:51 07/13/17 07:51 07/13/17 07:51 Intake and Output: 07/13/17 07/13/17 11:59 23:59 Intake Total 540 Balance 540 - Medications Medications: Current Medications Chlordiazepoxide (Librium) 25 mg PO DAILY [facility] PRN Reason: Taper Stop: 07/14/17 09:59 Last Admin: 07/13/17 10:48 Dose: 25 mg Heparin Sodium (Porcine) (Heparin) 5,000 units SC Q12H [facility] Last Admin: 07/13/17 10:49 Dose: 5,000 units Folic Acid 1 mg/ Sodium (Chloride) 100.2 mls @ 60 mls/hr IV DAILY [facility] Last Admin: 07/13/17 10:47 Dose: 60 mls/hr Dexmedetomidine HCl 200 mcg/ (Sodium Chloride) 50 mls @ 3.4 mls/hr IV TITR PRN ; Protocol; 0.2 MCG/KG/HR PRN Reason: Symptoms of alcohol withdrawl Last Titration: 07/10/17 11:29 Dose: 0 mcg/kg/hr, 0 mls/hr Ciprofloxacin (Cipro 400mg/200ml Dsw) 400 mg in 200 mls @ 133 mls/hr IVPB Q12H [facility] PRN Reason: Protocol Last Admin: 07/13/17 02:41 Dose: 133 mls/hr Ampicillin 2 gm/ Sodium (Chloride) 100 mls @ 50 mls/hr IVPB Q8H [facility] PRN Reason: Protocol Last Admin: 07/13/17 05:05 Dose: 50 mls/hr Levetiracetam (Keppra) 500 mg PO BID [facility] Last Admin: 07/13/17 10:48 Dose: 500 mg Lorazepam (Ativan) 2 mg IVP Q3H PRN PRN Reason: Symptoms of alcohol withdrawl Pantoprazole Sodium (Protonix Inj) 40 mg IVP DAILY [facility] Last Admin: 07/13/17 10:49 Dose: 40 mg Silver Sulfadiazine (Silvadene 1% 20 Gm) 0 ea TOP DAILY [facility] Last Admin: 07/13/17 10:47 Dose: 20 gm Thiamine HCl (Vitamin B1 Inj) 100 mg IV DAILY [facility] Last Admin: 07/13/17 10:50 Dose: 100 mg - Labs Labs: 07/13/17 06:44 07/13/17 06:44 APTT 22 SECONDS (21-34) 07/10/17 06:44 Assessment and Plan (1) Alcohol withdrawal Status: Acute (2) Cellulitis of leg, right Status: Acute
[2017-07-14] MEDS: Ciprofloxacin 400mg/200ml D5W 400 MG/200 ML BAG IVPB SCH ×2 (04:27→15:50)
[2017-07-14] MEDS: AMPicillin 2 GM in Sodium Chloride 100 ML IVPB SCH ×3 (06:14→21:28)
--- NOTE | 2017-07-14 07:58 | CP.PCM.PN ---
Subjective - Date & Time of Evaluation Date of Evaluation: 07/14/17 Time of Evaluation: 07:54 - Subjective Subjective: Podiatry Progress Note- Dr. Garcia 57 year old male was seen at bedside in the ED for right lower extremity ulcers. No acute events overnight. Denies any pain or discomfort to the right lower ext. Dressing to bilateral LE remains clean/dry/intact. Denies f/n/v/c/sob /cp at this time. Objective - Vital Signs/Intake and Output Vital Signs (last 24 hours): Temp Pulse Resp BP Pulse Ox 98.1 F 86 20 110/69 96 07/14/17 00:00 07/14/17 00:00 07/14/17 00:00 07/14/17 00:00 07/14/17 00:00 Intake and Output: 07/14/17 07/14/17 06:59 18:59 Intake Total 660 450 Balance 660 450 - Medications Medications: Current Medications Chlordiazepoxide (Librium) 25 mg PO DAILY [facility] PRN Reason: Taper Stop: 07/14/17 09:59 Last Admin: 07/13/17 10:48 Dose: 25 mg Heparin Sodium (Porcine) (Heparin) 5,000 units SC Q12H [facility] Last Admin: 07/13/17 21:05 Dose: 5,000 units Folic Acid 1 mg/ Sodium (Chloride) 100.2 mls @ 60 mls/hr IV DAILY [facility] Last Admin: 07/13/17 10:47 Dose: 60 mls/hr Dexmedetomidine HCl 200 mcg/ (Sodium Chloride) 50 mls @ 3.4 mls/hr IV TITR PRN ; Protocol; 0.2 MCG/KG/HR PRN Reason: Symptoms of alcohol withdrawl Last Titration: 07/10/17 11:29 Dose: 0 mcg/kg/hr, 0 mls/hr Ciprofloxacin (Cipro 400mg/200ml Dsw) 400 mg in 200 mls @ 133 mls/hr IVPB Q12H [facility] PRN Reason: Protocol Last Admin: 07/14/17 04:27 Dose: 133 mls/hr Ampicillin 2 gm/ Sodium (Chloride) 100 mls @ 50 mls/hr IVPB Q8H [facility] PRN Reason: Protocol Last Admin: 07/14/17 06:14 Dose: 50 mls/hr Levetiracetam (Keppra) 500 mg PO BID [facility] Last Admin: 07/13/17 18:20 Dose: 500 mg Lorazepam (Ativan) 2 mg IVP Q3H PRN PRN Reason: Symptoms of alcohol withdrawl Pantoprazole Sodium (Protonix Inj) 40 mg IVP DAILY [facility] Last Admin: 07/13/17 10:49 Dose: 40 mg Silver Sulfadiazine (Silvadene 1% 20 Gm) 0 ea TOP DAILY [facility] Last Admin: 07/13/17 10:47 Dose: 20 gm Thiamine HCl (Vitamin B1 Inj) 100 mg IV DAILY [facility] Last Admin: 07/13/17 10:50 Dose: 100 mg - Labs Labs: 07/13/17 06:44 07/13/17 06:44 APTT 22 SECONDS (21-34) 07/10/17 06:44 - Constitutional Appears: Well, Non-toxic, No Acute Distress - Extremities Exam Additional comments: lower extremity focused exam: VASC: DP and PT pulses palpable b/l, skin temp runs warm to warm, mild edema, brisk cap refill NEURO: gross and protective sensation diminished DERM: Right: superficial ulceration noted to anterolateral aspect of midshaft right leg measuring approximately 10 x 7 cm extending down to subcutaneous tissue with mixed fibrogranular base, no active drainage, neg purulence, neg fluctuance , mild malodor, neg probe to bone; there is a 2nd superficial ulceration noted to posterior lower leg meausuring approximately 8.0x8.0 cm extending down to deep subcutaneous tissue with mixed fibrogranular base, with purulent drainage , neg probe to bone Left: superficial ulcerations noted to the left calf and ankle, no probe to bone , no malodor, no drainage noted ORTHO: neg tenderness to palp of wounds - Neurological Exam Neurological Exam: Alert, Awake, Oriented x3 - Psychiatric Exam Psychiatric exam: Normal Affect, Normal Mood Assessment and Plan - Assessment and Plan (Free Text) Assessment: 57 year old male with 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 Garcia Afebrile, WBC 5.2 Wound cx: citrobacter freundii, beta hemolytic strep group b IV abx per ID f/u bone scan report Continue local wound care: saline cleanse, silvadene, DSD Advised patient to discontinue self dressing changes Patient advised to call Dr. Garcia's office for follow up appointment once discharged; patient initially recommended SUKHWINDER however patient refusing despite non adherence to treatment and discharge recommendations Podiatry will continue to follow
[2017-07-14] MEDS: Thiamine 100 mg/ml Inj IV SCH (10:15)
[2017-07-14] MEDS: Silver Sulfadiazine 1% Cream (20 gm) TOP SCH (10:17)
--- NOTE | 2017-07-14 12:05 | CP.PCM.PN ---
Subjective - Date & Time of Evaluation Date of Evaluation: 07/14/17 Time of Evaluation: 12:00 - Subjective Subjective: patient currently improving. Afebrile vital signs stable. Also start healing. Culture sensitivity of the wound shows Citrobacter . Continue IV antibiotic Objective - Vital Signs/Intake and Output Vital Signs (last 24 hours): Temp Pulse Resp BP Pulse Ox 98.3 F 82 20 90/60 L 95 07/14/17 08:49 07/14/17 08:49 07/14/17 08:49 07/14/17 08:49 07/14/17 08:49 Intake and Output: 07/14/17 07/14/17 11:59 23:59 Intake Total 450 Balance 450 - Medications Medications: Current Medications Heparin Sodium (Porcine) (Heparin) 5,000 units SC Q12H [facility] Last Admin: 07/14/17 10:06 Dose: 5,000 units Folic Acid 1 mg/ Sodium (Chloride) 100.2 mls @ 60 mls/hr IV DAILY [facility] Last Admin: 07/14/17 09:57 Dose: 60 mls/hr Dexmedetomidine HCl 200 mcg/ (Sodium Chloride) 50 mls @ 3.4 mls/hr IV TITR PRN ; Protocol; 0.2 MCG/KG/HR PRN Reason: Symptoms of alcohol withdrawl Last Titration: 07/10/17 11:29 Dose: 0 mcg/kg/hr, 0 mls/hr Ciprofloxacin (Cipro 400mg/200ml Dsw) 400 mg in 200 mls @ 133 mls/hr IVPB Q12H [facility] PRN Reason: Protocol Last Admin: 07/14/17 04:27 Dose: 133 mls/hr Ampicillin 2 gm/ Sodium (Chloride) 100 mls @ 50 mls/hr IVPB Q8H [facility] PRN Reason: Protocol Last Admin: 07/14/17 06:14 Dose: 50 mls/hr Levetiracetam (Keppra) 500 mg PO BID [facility] Last Admin: 07/14/17 10:08 Dose: 500 mg Lorazepam (Ativan) 2 mg IVP Q3H PRN PRN Reason: Symptoms of alcohol withdrawl Pantoprazole Sodium (Protonix Inj) 40 mg IVP DAILY [facility] Last Admin: 07/14/17 10:03 Dose: 40 mg Silver Sulfadiazine (Silvadene 1% 20 Gm) 0 ea TOP DAILY [facility] Last Admin: 07/14/17 10:17 Dose: Not Given Thiamine HCl (Vitamin B1 Inj) 100 mg IV DAILY [facility] Last Admin: 07/14/17 10:15 Dose: 100 mg - Labs Labs: 07/13/17 06:44 07/13/17 06:44 APTT 22 SECONDS (21-34) 07/10/17 06:44 Assessment and Plan (1) Alcohol withdrawal Status: Acute (2) Cellulitis of leg, right Status: Acute
--- NOTE | 2017-07-14 16:25 | CP.PCM.PN ---
Subjective - Date & Time of Evaluation Date of Evaluation: 07/14/17 Time of Evaluation: 16:21 - Subjective Subjective: Podiatry Progress Note- Dr. Garcia 57 year old male was seen at bedside in the ED for right lower extremity ulcers. No acute events overnight. Denies any pain or discomfort to the right lower ext. Dressing to bilateral LE remains clean/dry/intact. Reports that they took all the dressing supplies away from him. Denies f/n/v/c/sob/cp at this time. no new pedal complains. Objective - Vital Signs/Intake and Output Vital Signs (last 24 hours): Temp Pulse Resp BP Pulse Ox 98.3 F 82 20 90/60 L 95 07/14/17 08:49 07/14/17 08:49 07/14/17 08:49 07/14/17 08:49 07/14/17 08:49 Intake and Output: 07/14/17 07/14/17 06:59 18:59 Intake Total 660 450 Balance 660 450 - Medications Medications: Current Medications Heparin Sodium (Porcine) (Heparin) 5,000 units SC Q12H [facility] Last Admin: 07/14/17 10:06 Dose: 5,000 units Folic Acid 1 mg/ Sodium (Chloride) 100.2 mls @ 60 mls/hr IV DAILY [facility] Last Admin: 07/14/17 09:57 Dose: 60 mls/hr Dexmedetomidine HCl 200 mcg/ (Sodium Chloride) 50 mls @ 3.4 mls/hr IV TITR PRN ; Protocol; 0.2 MCG/KG/HR PRN Reason: Symptoms of alcohol withdrawl Last Titration: 07/10/17 11:29 Dose: 0 mcg/kg/hr, 0 mls/hr Ciprofloxacin (Cipro 400mg/200ml Dsw) 400 mg in 200 mls @ 133 mls/hr IVPB Q12H [facility] PRN Reason: Protocol Last Admin: 07/14/17 15:50 Dose: 133 mls/hr Ampicillin 2 gm/ Sodium (Chloride) 100 mls @ 50 mls/hr IVPB Q8H [facility] PRN Reason: Protocol Last Admin: 07/14/17 14:54 Dose: 50 mls/hr Levetiracetam (Keppra) 500 mg PO BID [facility] Last Admin: 07/14/17 10:08 Dose: 500 mg Lorazepam (Ativan) 2 mg IVP Q3H PRN PRN Reason: Symptoms of alcohol withdrawl Pantoprazole Sodium (Protonix Inj) 40 mg IVP DAILY [facility] Last Admin: 07/14/17 10:03 Dose: 40 mg Silver Sulfadiazine (Silvadene 1% 20 Gm) 0 ea TOP DAILY [facility] Last Admin: 07/14/17 10:17 Dose: Not Given Thiamine HCl (Vitamin B1 Inj) 100 mg IV DAILY [facility] Last Admin: 07/14/17 10:15 Dose: 100 mg - Labs Labs: 07/13/17 06:44 07/13/17 06:44 APTT 22 SECONDS (21-34) 07/10/17 06:44 - Constitutional Appears: Well, Non-toxic, No Acute Distress - Extremities Exam Additional comments: lower extremity focused exam: VASC: DP and PT pulses palpable b/l, skin temp runs warm to warm, mild edema, brisk cap refill NEURO: gross and protective sensation diminished DERM: Right: superficial ulceration noted to anterolateral aspect of midshaft right leg measuring approximately 10 x 7 cm extending down to subcutaneous tissue with mixed fibrogranular base, no active drainage, neg purulence, neg fluctuance , mild malodor, neg probe to bone; there is a 2nd superficial ulceration noted to posterior lower leg meausuring approximately 8.0x8.0 cm extending down to deep subcutaneous tissue with mixed fibrogranular base, with purulent drainage , neg probe to bone Left: superficial ulcerations noted to the left calf and ankle, no probe to bone , no malodor, no drainage noted ORTHO: neg tenderness to palp of wounds - Neurological Exam Neurological Exam: Alert, Awake, Oriented x3 - Psychiatric Exam Psychiatric exam: Normal Affect, Normal Mood Assessment and Plan - Assessment and Plan (Free Text) Assessment: 57 year old male with 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 Garcia Afebrile, WBC 5.2 Wound cx: citrobacter freundii, beta hemolytic strep group b IV abx per ID f/u bone scan report - Abnormal increased uptake cutaneous and subcutaneous locations at the level of the wounds; no osseous abnormalities Continue local wound care: saline cleanse, silvadene, DSD Advised patient to discontinue self dressing changes Patient advised to call Dr. Garcia's office for follow up appointment once discharged; patient initially recommended SUKHWINDER however patient refusing despite non adherence to treatment and discharge recommendations Podiatry will continue to follow while in-house
[2017-07-15 01:54] VITALS: RESP 20
[2017-07-15] MEDS: Ciprofloxacin 400mg/200ml D5W 400 MG/200 ML BAG IVPB SCH ×2 (02:39→16:00)
[2017-07-15] MEDS: AMPicillin 2 GM in Sodium Chloride 100 ML IVPB SCH ×3 (05:09→21:07)
[2017-07-15] MEDS: Thiamine 100 mg/ml Inj IV SCH (09:04)
[2017-07-15] MEDS: Silver Sulfadiazine 1% Cream (20 gm) TOP SCH (09:05)
--- NOTE | 2017-07-15 15:13 | CP.PCM.PN ---
Subjective - Date & Time of Evaluation Date of Evaluation: 07/15/17 Time of Evaluation: 15:11 - Subjective Subjective: bilateral superficial ulcers on the lower extremities are improving on IV antibiotics. Bone scan is negative for osteomyelitis. Continue IV antibiotics and discharge planning. Objective - Vital Signs/Intake and Output Vital Signs (last 24 hours): Temp Pulse Resp BP Pulse Ox 98.1 F 79 20 105/71 96 07/15/17 08:19 07/15/17 08:19 07/15/17 08:19 07/15/17 08:19 07/15/17 08:19 Intake and Output: 07/15/17 07/15/17 11:59 23:59 Intake Total 450 400 Balance 450 400 - Medications Medications: Current Medications Folic Acid 1 mg/ Sodium (Chloride) 100.2 mls @ 60 mls/hr IV DAILY [facility] Last Admin: 07/15/17 09:00 Dose: 60 mls/hr Dexmedetomidine HCl 200 mcg/ (Sodium Chloride) 50 mls @ 3.4 mls/hr IV TITR PRN ; Protocol; 0.2 MCG/KG/HR PRN Reason: Symptoms of alcohol withdrawl Last Titration: 07/10/17 11:29 Dose: 0 mcg/kg/hr, 0 mls/hr Ciprofloxacin (Cipro 400mg/200ml Dsw) 400 mg in 200 mls @ 133 mls/hr IVPB Q12H [facility] PRN Reason: Protocol Last Admin: 07/15/17 02:39 Dose: 133 mls/hr Ampicillin 2 gm/ Sodium (Chloride) 100 mls @ 50 mls/hr IVPB Q8H [facility] PRN Reason: Protocol Last Admin: 07/15/17 13:20 Dose: 50 mls/hr Levetiracetam (Keppra) 500 mg PO BID [facility] Last Admin: 07/15/17 09:03 Dose: 500 mg Lorazepam (Ativan) 2 mg IVP Q3H PRN PRN Reason: Symptoms of alcohol withdrawl Pantoprazole Sodium (Protonix Inj) 40 mg IVP DAILY [facility] Last Admin: 07/15/17 09:04 Dose: 40 mg Silver Sulfadiazine (Silvadene 1% 20 Gm) 0 ea TOP DAILY [facility] Last Admin: 07/15/17 09:05 Dose: Not Given Thiamine HCl (Vitamin B1 Inj) 100 mg IV DAILY [facility] Last Admin: 07/15/17 09:04 Dose: 100 mg - Labs Labs: 07/13/17 06:44 07/13/17 06:44 APTT 22 SECONDS (21-34) 07/10/17 06:44 Assessment and Plan (1) Alcohol withdrawal Status: Acute (2) Cellulitis of leg, right Status: Acute
--- NOTE | 2017-07-15 17:05 | CP.PCM.PN ---
Subjective - Date & Time of Evaluation Date of Evaluation: 07/15/17 Time of Evaluation: 17:03 - Subjective Subjective: Podiatry Progress Note- Dr. Garcia 57 year old male was seen at bedside in the ED for right lower extremity ulcers. No acute events overnight. Denies any pain or discomfort to the right lower ext. Dressing to bilateral LE remains clean/dry/intact. Denies f/n/v/c/sob /cp at this time. no new pedal complains. Objective - Vital Signs/Intake and Output Vital Signs (last 24 hours): Temp Pulse Resp BP Pulse Ox 98.1 F 79 20 105/71 96 07/15/17 08:19 07/15/17 08:19 07/15/17 08:19 07/15/17 08:19 07/15/17 08:19 Intake and Output: 07/15/17 07/15/17 06:59 18:59 Intake Total 1230 400 Balance 1230 400 - Medications Medications: Current Medications Folic Acid 1 mg/ Sodium (Chloride) 100.2 mls @ 60 mls/hr IV DAILY [facility] Last Admin: 07/15/17 09:00 Dose: 60 mls/hr Dexmedetomidine HCl 200 mcg/ (Sodium Chloride) 50 mls @ 3.4 mls/hr IV TITR PRN ; Protocol; 0.2 MCG/KG/HR PRN Reason: Symptoms of alcohol withdrawl Last Titration: 07/10/17 11:29 Dose: 0 mcg/kg/hr, 0 mls/hr Ciprofloxacin (Cipro 400mg/200ml Dsw) 400 mg in 200 mls @ 133 mls/hr IVPB Q12H LITA PRN Reason: Protocol Last Admin: 07/15/17 02:39 Dose: 133 mls/hr Ampicillin 2 gm/ Sodium (Chloride) 100 mls @ 50 mls/hr IVPB Q8H LITA PRN Reason: Protocol Last Admin: 07/15/17 13:20 Dose: 50 mls/hr Levetiracetam (Keppra) 500 mg PO BID [facility] Last Admin: 07/15/17 09:03 Dose: 500 mg Lorazepam (Ativan) 2 mg IVP Q3H PRN PRN Reason: Symptoms of alcohol withdrawl Pantoprazole Sodium (Protonix Inj) 40 mg IVP DAILY [facility] Last Admin: 07/15/17 09:04 Dose: 40 mg Silver Sulfadiazine (Silvadene 1% 20 Gm) 0 ea TOP DAILY [facility] Last Admin: 07/15/17 09:05 Dose: Not Given Thiamine HCl (Vitamin B1 Inj) 100 mg IV DAILY [facility] Last Admin: 07/15/17 09:04 Dose: 100 mg - Labs Labs: 07/13/17 06:44 07/13/17 06:44 APTT 22 SECONDS (21-34) 07/10/17 06:44 - Constitutional Appears: Well, Non-toxic, No Acute Distress - Extremities Exam Additional comments: lower extremity focused exam: VASC: DP and PT pulses palpable b/l, skin temp runs warm to warm, mild edema, brisk cap refill NEURO: gross and protective sensation diminished DERM: Right: superficial ulceration noted to anterolateral aspect of midshaft right leg measuring approximately 10 x 7 cm extending down to subcutaneous tissue with mixed fibrogranular base, no active drainage, neg purulence, neg fluctuance , mild malodor, neg probe to bone; there is a 2nd superficial ulceration noted to posterior lower leg meausuring approximately 8.0x8.0 cm extending down to deep subcutaneous tissue with mixed fibrogranular base, with purulent drainage , neg probe to bone Left: superficial ulcerations noted to the left calf and ankle, no probe to bone , no malodor, no drainage noted ORTHO: neg tenderness to palp of wounds - Neurological Exam Neurological Exam: Alert, Awake, Oriented x3 - Psychiatric Exam Psychiatric exam: Normal Affect, Normal Mood Assessment and Plan - Assessment and Plan (Free Text) Assessment: 57 year old male with 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 Garcia Afebrile, WBC 5.2 as of 07/13 Wound cx: citrobacter freundii, beta hemolytic strep group b IV abx per ID f/u bone scan report - Abnormal increased uptake cutaneous and subcutaneous locations at the level of the wounds; no osseous abnormalities Continue local wound care: saline cleanse, silvadene, DSD Advised patient to discontinue self dressing changes Patient advised to call Dr. Garcia's office for follow up appointment once discharged; patient initially recommended SUKHWINDER however patient refusing despite non adherence to treatment and discharge recommendations Podiatry will continue to follow while in-house
[2017-07-16] MEDS: Ciprofloxacin 400mg/200ml D5W 400 MG/200 ML BAG IVPB SCH (03:12)
[2017-07-16] MEDS: AMPicillin 2 GM in Sodium Chloride 100 ML IVPB SCH ×2 (05:24→13:18)
[2017-07-16] MEDS: Silver Sulfadiazine 1% Cream (20 gm) TOP SCH (09:30)
[2017-07-16] MEDS: Thiamine 100 mg/ml Inj IV SCH (09:30)
--- NOTE | 2017-07-16 11:45 | CP.PCM.PN ---
Subjective - Date & Time of Evaluation Date of Evaluation: 07/16/17 Time of Evaluation: 11:45 - Subjective Subjective: AFEBRILE, TMAX 99.0 AWAKE AND RESPONSIVE. NO MORE SEIZURES. NO DTS B/L LEG WRAPPED UP IN [place] . CH BURN ULCERS LE. . WOUND CULTURES +VE CITROBACTER FREUNDI -(PANSENSITIVE ), AND GRP B HEMOLYTIC STREPT DC IV ABX IV ZOSYN/IV DAPTOMYCIN. START PT ON PO LEVAQUIN 5OOMG OD DAILY X 14DAYS WATCH LFTS/ RENAL FUNCTION CLOSELY. [facility] Objective - Vital Signs/Intake and Output Vital Signs (last 24 hours): Temp Pulse Resp BP Pulse Ox 99.3 F 117 H 20 101/75 96 07/16/17 08:00 07/16/17 08:00 07/16/17 08:00 07/16/17 08:00 07/16/17 08:00 Intake and Output: 07/16/17 07/16/17 06:59 18:59 Intake Total 500 Balance 500 - Medications Medications: Current Medications Folic Acid 1 mg/ Sodium (Chloride) 100.2 mls @ 60 mls/hr IV DAILY [facility] Last Admin: 07/16/17 09:31 Dose: 60 mls/hr Dexmedetomidine HCl 200 mcg/ (Sodium Chloride) 50 mls @ 3.4 mls/hr IV TITR PRN ; Protocol; 0.2 MCG/KG/HR PRN Reason: Symptoms of alcohol withdrawl Last Titration: 07/10/17 11:29 Dose: 0 mcg/kg/hr, 0 mls/hr Ciprofloxacin (Cipro 400mg/200ml Dsw) 400 mg in 200 mls @ 133 mls/hr IVPB Q12H LITA PRN Reason: Protocol Last Admin: 07/16/17 03:12 Dose: 133 mls/hr Ampicillin 2 gm/ Sodium (Chloride) 100 mls @ 50 mls/hr IVPB Q8H LITA PRN Reason: Protocol Last Admin: 07/16/17 05:24 Dose: 50 mls/hr Levetiracetam (Keppra) 500 mg PO BID [facility] Last Admin: 07/16/17 09:30 Dose: 500 mg Lorazepam (Ativan) 2 mg IVP Q3H PRN PRN Reason: Symptoms of alcohol withdrawl Pantoprazole Sodium (Protonix Inj) 40 mg IVP DAILY [facility] Last Admin: 07/16/17 09:30 Dose: 40 mg Silver Sulfadiazine (Silvadene 1% 20 Gm) 0 ea TOP DAILY [facility] Last Admin: 07/16/17 09:30 Dose: Not Given Thiamine HCl (Vitamin B1 Inj) 100 mg IV DAILY [facility] Last Admin: 07/16/17 09:30 Dose: 100 mg - Labs Labs: 07/13/17 06:44 07/13/17 06:44 APTT 22 SECONDS (21-34) 07/10/17 06:44 - Constitutional Appears: No Acute Distress - Head Exam Head Exam: NORMAL INSPECTION - Eye Exam Eye Exam: EOMI, PERRL - ENT Exam ENT Exam: Normal Oropharynx - Neck Exam Neck Exam: Normal Inspection - Respiratory Exam Respiratory Exam: Clear to Ausculation Bilateral - GI/Abdominal Exam GI & Abdominal Exam: Soft, Normal Bowel Sounds - Extremities Exam Extremities Exam: absent: Calf Tenderness (B/L LE IN DRESSINGS.LESS DRAINAGE PER PT,) - Neurological Exam Neurological Exam: Awake - Psychiatric Exam Psychiatric exam: Normal Mood - Skin Skin Exam: Normal Color, Warm Assessment and Plan (1) Chronic ulcer of right leg Status: Acute (2) Alcohol withdrawal Status: Acute (3) Wound infection Status: Acute (4) Burn Status: Acute (5) Thrombocytopenia Status: Acute
--- NOTE | 2017-07-16 13:55 | CP.PCM.DIS ---
Provider - Provider Date of Admission: 07/09/17 16:04 Attending physician: Fani Mcnair MD Time Spent in preparation of Discharge (in minutes): 35 Diagnosis - Discharge Diagnosis (1) Alcohol withdrawal Status: Acute (2) Cellulitis of leg, right Status: Acute Hospital Course - Lab Results Lab Results: Micro Results 07/09/17 15:40 Blood Blood Culture - Final NO GROWTH AFTER 5 DAYS 07/09/17 15:40 Blood Gram Stain - Final TEST NOT PERFORMED 07/09/17 15:10 Blood Blood Culture - Final NO GROWTH AFTER 5 DAYS 07/09/17 15:10 Blood Gram Stain - Final TEST NOT PERFORMED 07/12/17 00:19 Naris MRSA Culture (Admit) - Final MRSA NOT DETECTED 07/09/17 15:30 Leg - Right Gram Stain - Final 07/09/17 15:30 Leg - Right Wound Culture - Final Citrobacter Freundii Beta Hemolytic Strep Group B 07/09/17 17:10 Naris MRSA Culture (Admit) - Final MRSA NOT DETECTED Most Recent Lab Values WBC 5.2 K/uL (4.8-10.8) 07/13/17 06:44 RBC 4.48 Mil/uL (4.40-5.90) 07/13/17 06:44 Hgb 13.2 g/dL (12.0-18.0) 07/13/17 06:44 Hct 39.7 % (35.0-51.0) 07/13/17 06:44 MCV 88.4 fL (80.0-94.0) 07/13/17 06:44 MCH 29.4 pg (27.0-31.0) 07/13/17 06:44 MCHC 33.3 g/dL (33.0-37.0) 07/13/17 06:44 RDW 15.4 % (11.5-14.5) H 07/13/17 06:44 Plt Count 99 K/uL (130-400) L 07/13/17 06:44 MPV 8.5 fL (7.2-11.7) 07/13/17 06:44 Neut % (Auto) 60.7 % (50.0-75.0) 07/13/17 06:44 Lymph % (Auto) 23.3 % (20.0-40.0) 07/13/17 06:44 [place]orne % (Auto) 13.5 % (0.0-10.0) H 07/13/17 06:44 Eos % (Auto) 2.0 % (0.0-4.0) 07/13/17 06:44 Baso % (Auto) 0.5 % (0.0-2.0) 07/13/17 06:44 Neut # (Auto) 3.2 K/uL (1.8-7.0) 07/13/17 06:44 Lymph # (Auto) 1.2 K/uL (1.0-4.3) 07/13/17 06:44 [place]orne # (Auto) 0.7 K/uL (0.0-0.8) 07/13/17 06:44 Eos # (Auto) 0.1 K/uL (0.0-0.7) 07/13/17 06:44 Baso # (Auto) 0.0 K/uL (0.0-0.2) 07/13/17 06:44 Neutrophils % (Manual) 91 % (50-75) H 07/09/17 13:00 Band Neutrophils % 1 % (0-2) 07/09/17 13:00 Lymphocytes % (Manual) 4 % (20-40) L 07/09/17 13:00 Monocytes % (Manual) 3 % (0-10) 07/09/17 13:00 Eosinophils % (Manual) 1 % (0-4) 07/09/17 13:00 Platelet Estimate Normal (NORMAL) 07/09/17 13:00 Anisocytosis (manual) Slight 07/09/17 13:00 APTT 22 SECONDS (21-34) 07/10/17 06:44 Puncture Site Rba 07/09/17 15:35 pCO2 41 mm/Hg (35-45) 07/09/17 15:35 pO2 112 mm/Hg (80-100) H 07/09/17 15:35 HCO3 24.8 mmol/L (21-28) 07/09/17 15:35 ABG pH 7.39 (7.35-7.45) 07/09/17 15:35 ABG Total CO2 26.1 mmol/L (22-28) 07/09/17 15:35 ABG O2 Saturation 99.3 % (95-98) H 07/09/17 15:35 ABG Base Excess -0.2 mmol/L (-2.0-3.0) 07/09/17 15:35 Ben Test Pos 07/09/17 15:35 ABG Potassium 3.4 mmol/L (3.6-5.2) L 07/09/17 15:35 A-a O2 Difference -14.0 mm/Hg 07/09/17 15:35 Respiratory Index -0.1 07/09/17 15:35 Sodium 141.0 mmol/l (132-148) 07/09/17 15:35 Chloride 109.0 mmol/L (98-107) H 07/09/17 15:35 Glucose 157 mg/dl (75-110) H 07/09/17 15:35 Lactate 3.0 mmol/L (0.7-2.1) H 07/09/17 15:35 FiO2 21.0 % 07/09/17 15:35 Sodium 142 mmol/L (132-148) 07/13/17 06:44 Potassium 3.5 mmol/L (3.6-5.2) L 07/13/17 06:44 Chloride 108 mmol/L (98-107) H 07/13/17 06:44 Carbon Dioxide 25 mmol/L (22-30) 07/13/17 06:44 Anion Gap 12 (10-20) 07/13/17 06:44 BUN 5 mg/dL (9-20) L 07/13/17 06:44 Creatinine 0.5 mg/dL (0.8-1.5) L 07/13/17 06:44 Est GFR ( Amer) > 60 07/13/17 06:44 Est GFR (Non-Af Amer) > 60 07/13/17 06:44 POC Glucose (mg/dL) 83 mg/dL (65-110) 07/10/17 12:12 Random Glucose 101 mg/dL (75-110) 07/13/17 06:44 Lactic Acid 0.7 mmol/L (0.7-2.1) 07/09/17 19:49 Calcium 8.7 mg/dl (8.6-10.4) 07/13/17 06:44 Phosphorus 3.6 mg/dL (2.5-4.5) 07/11/17 06:54 Magnesium 1.9 mg/dL (1.6-2.3) 07/11/17 06:54 Total Bilirubin 0.6 mg/dL (0.2-1.3) 07/13/17 06:44 AST 31 U/L (17-59) 07/13/17 06:44 ALT 22 U/L (21-72) 07/13/17 06:44 Alkaline Phosphatase 79 U/L (38-126) 07/13/17 06:44 Ammonia 54 umol/L (9-33) H 07/09/17 14:56 Total Creatine Kinase 239 U/L (55-170) H 07/09/17 14:56 Troponin I < 0.0120 ng/mL (0.00-0.120) 07/09/17 14:56 Total Protein 6.8 g/dL (6.3-8.3) 07/13/17 06:44 Albumin 3.5 g/dL (3.5-5.0) 07/13/17 06:44 Globulin 3.3 gm/dL (2.2-3.9) 07/13/17 06:44 Albumin/Globulin Ratio 1.0 (1.0-2.1) 07/13/17 06:44 TSH 3rd Generation 2.76 mIU/L (0.46-4.68) 07/09/17 14:56 Arterial Blood Potassium 3.4 mmol/L (3.6-5.2) L 07/09/17 15:35 Alcohol, Quantitative < 10 mg/dl (0-10) 07/09/17 12:31 - Hospital Course Hospital Course: PT. WAS FOUND ON THE FLOOR NEAR [facility] . PT WAS EVALUATED IN ER ,. PT HAD SEIZURE LIKE ACTIVITY AND RESPONDED TO IV ATIVAN PT HAS CH ULCERS IN LEG NO FURTHER HISTORY OBTAINED patient responded with IV ativan and IV fluids. There were no further seizures in the hospital. Patient had chronic lower extremities superficial ulcers. The cultures came back positive for Citrobacter and Streptococcus hemolyticus group a. Patient was given IV antibiotics ulcers improved and there was no further discharge. ID and podiatry consult was obtained patient was clear for discharge. Discharge Exam - Head Exam Head Exam: NORMAL INSPECTION Discharge Plan - Follow Up Plan Condition: FAIR Disposition: HOME/ ROUTINE Referrals: Jacqueline Kaplan MD [Staff Provider] -
--- NOTE | 2017-07-16 16:31 | CP.PCM.PN ---
Subjective - Date & Time of Evaluation Date of Evaluation: 07/16/17 Time of Evaluation: 11:00 - Subjective Subjective: ALERT, AWAKE, NO SOB OR CHEST PAINS, NO DISTRESS. Objective - Vital Signs/Intake and Output Vital Signs (last 24 hours): Temp Pulse Resp BP Pulse Ox 99.3 F 117 H 20 101/75 96 07/16/17 08:00 07/16/17 08:00 07/16/17 08:00 07/16/17 08:00 07/16/17 08:00 Intake and Output: 07/16/17 07/16/17 06:59 18:59 Intake Total 500 Balance 500 - Medications Medications: Current Medications Folic Acid 1 mg/ Sodium (Chloride) 100.2 mls @ 60 mls/hr IV DAILY [facility] Last Admin: 07/16/17 09:31 Dose: 60 mls/hr Dexmedetomidine HCl 200 mcg/ (Sodium Chloride) 50 mls @ 3.4 mls/hr IV TITR PRN ; Protocol; 0.2 MCG/KG/HR PRN Reason: Symptoms of alcohol withdrawl Last Titration: 07/10/17 11:29 Dose: 0 mcg/kg/hr, 0 mls/hr Ciprofloxacin (Cipro 400mg/200ml Dsw) 400 mg in 200 mls @ 133 mls/hr IVPB Q12H LITA PRN Reason: Protocol Last Admin: 07/16/17 03:12 Dose: 133 mls/hr Ampicillin 2 gm/ Sodium (Chloride) 100 mls @ 50 mls/hr IVPB Q8H LITA PRN Reason: Protocol Last Admin: 07/16/17 13:18 Dose: 50 mls/hr Levetiracetam (Keppra) 500 mg PO BID [facility] Last Admin: 07/16/17 09:30 Dose: 500 mg Lorazepam (Ativan) 2 mg IVP Q3H PRN PRN Reason: Symptoms of alcohol withdrawl Pantoprazole Sodium (Protonix Inj) 40 mg IVP DAILY [facility] Last Admin: 07/16/17 09:30 Dose: 40 mg Silver Sulfadiazine (Silvadene 1% 20 Gm) 0 ea TOP DAILY [facility] Last Admin: 07/16/17 09:30 Dose: Not Given Thiamine HCl (Vitamin B1 Inj) 100 mg IV DAILY [facility] Last Admin: 07/16/17 09:30 Dose: 100 mg - Labs Labs: 07/13/17 06:44 07/13/17 06:44 APTT 22 SECONDS (21-34) 07/10/17 06:44 Assessment and Plan - Assessment and Plan (Free Text) Assessment: Patient admitted with infected leg ulcers, seen and examined. Alert and orientedx3, denies any acute pain.Cleared by podiatry and ID to discharge on oral levaquin. Patient is homeless but refuses to go to shelters. Discussed with DR Mcnair, plan todischarge home on levaquin 500 mg po daily for 2 weeks. Advised to follow up with podiatry for wound care. Patient agreed with the plan. Advised to follow in the office in 1 week.
[2017-07-16 16:49] VITALS: BP 117/80; PULSE 83; TEMP 97.6; O2SAT 100
== END 2017-07-16 17:32 | disposition home or self-care (01) | DRG 271 ==
LOC: C.ER 11:59 → C.9I 16:04 → C.3T 07-11 23:16 → C.9I 07-11 23:29 → C.3T 07-12 01:03
PROVIDERS: ADMIT Internal Medicine Cardiovascular Disease; ATTEND Internal Medicine Cardiovascular Disease
DX: L97.919 Non-pressure chronic ulcer of unspecified part of right lower leg with unspecified severity (principal); L03.115 Cellulitis of right lower limb; D69.6 Thrombocytopenia, unspecified; I51.7 Cardiomegaly; G40.89 Other seizures; F17.200 Nicotine dependence, unspecified, uncomplicated; Z59.0 Homelessness; T24.001S Burn of unspecified degree of unspecified site of right lower limb, except ankle and foot, sequela

== ENCOUNTER 2017-07-29 12:41 | Inpatient (IN) | payer MEDICAID ==
[2017-07-29 12:47] VITALS: BMI 21.9
[2017-07-29] MEDS ORDERED: Multivitamin (MVI) 10 ML, Thiamine 100 MG, Folic Acid 1 MG in Sodium Chloride 0.9% 1,00... IV STA (13:21)
[2017-07-29] MEDS ORDERED: Ciprofloxacin 400mg/200ml D5W 400 MG/200 ML BAG IV STA (13:23)
[2017-07-29 13:46] LABS: BASO % 0.2 % (0.0-2.0); HEMOGLOBIN 13.9 g/dL (12.0-18.0); LYMPH # 0.9 K/uL (1.0-4.3); LYMPH % 7.3 % (20.0-40.0); MEAN CELL VOLUME 87.7 fL (80.0-94.0); MEAN CORPUSCULAR HEMOGLOBIN 29.3 pg (27.0-31.0); MEAN CORPUSCULAR HGB CONC 33.3 g/dL (33.0-37.0); MEAN PLATELET VOLUME 7.5 fL (7.2-11.7); MONO # 0.7 K/uL (0.0-0.8); MONO % 5.5 % (0.0-10.0); NEUT # 11.3 K/uL (1.8-7.0); RBC 4.73 Mil/uL (4.40-5.90); RED CELL DISTRIBUTION WIDTH 15.1 % (11.5-14.5)
[2017-07-29 13:48] LABS: PLATELET COUNT 234 K/uL (130-400)
[2017-07-29] MEDS ORDERED: Ciprofloxacin 400mg/200ml D5W 400 MG/200 ML BAG IVPB ONE (13:54)
[2017-07-29 14:06] LABS: ALB/GLOB RATIO 1.3 (1.0-2.1); ALBUMIN 4.8 g/dL (3.5-5.0); ALT/SGPT 10 U/L (21-72); AST/SGOT 26 U/L (17-59); BLOOD UREA NITROGEN 6 mg/dL (9-20); CALCIUM 9.2 mg/dl (8.6-10.4); GFR AFRICAN-AMERICAN > 60; GFR NON-AFRICAN AMERICAN > 60
--- NOTE | 2017-07-29 14:06 | RAD ---
PROCEDURE: CHEST RADIOGRAPH, 1 VIEW HISTORY: seizures COMPARISON: 07/09/2017 FINDINGS: LUNGS: Clear. PLEURA: No pneumothorax or pleural fluid seen. CARDIOVASCULAR: No radiographic findings to suggest acute or significant cardiovascular disease. OSSEOUS STRUCTURES: No significant abnormalities. VISUALIZED UPPER ABDOMEN: Normal. OTHER FINDINGS: None. IMPRESSION: No active disease. No acute/significant interval changes.
[2017-07-29 14:22] LABS: ANISOCYTOSIS SLIGHT; BANDS 2 % (0-2); BASOPHIL 1 % (0-2); LYMPHOCYTE 9 % (20-40); MONOCYTE 6 % (0-10); NEUTROPHIL 82 % (50-75); PLATELET ESTIMATE NORMAL (NORMAL); TOTAL CELLS COUNTED 100
--- NOTE | 2017-07-29 15:47 | C.PDOC ---
History Of Present Illness 57 y/o male who is here with multiple complaints. He complains that he experienced an alcohol withdrawl induced seizure last night, and reports that he is noncompliant with he anti-seizure medications. He also complains of ulcers , discharge, and a foul smell from the area of a skin graft on his RLE. He was seen here in June for the same. No fever or chills. Time Seen by Provider: 07/29/17 13:00 Chief Complaint (Nursing): Abnormal Skin Integrity History Per: Patient History/Exam Limitations: no limitations Recent Seizure Activity Began: Days Ago: (1) Length Of Seizures (Duration): Unknown Post-ictal Period: Duration Unknown Past Medical History Vital Signs: Last Vital Signs Temp 99.8 F H 07/29/17 12:48 Pulse 122 H 07/29/17 12:48 Resp 16 07/29/17 12:48 BP 123/72 07/29/17 12:48 Pulse Ox 94 L 07/29/17 15:47 - Medical History PMH: Seizures Denies: Chronic Kidney Disease Other Surgeries: skin graft - [facility] Procedures EXCISION OF R LOW LEG SUBCU/FASCIA, OPEN APPROACH (06/04/17) INTRODUCTION OF SERUM/TOX/VACCINE INTO MUSCLE, PERC APPROACH (06/04/17) Family History: States: Unknown Family Hx - Social History Hx Tobacco Use: Yes Hx Alcohol Use: Yes (4-5 beers per day) Hx Substance Use: No - Immunization History Hx Tetanus Toxoid Vaccination: Yes Hx Influenza Vaccination: Yes Hx Pneumococcal Vaccination: No Review Of Systems Except As Marked, All Systems Reviewed And Found Negative. Skin: Positive for: Lesions Neurological: Positive for: Seizures Physical Exam - Physical Exam Appears: Non-toxic, No Acute Distress Skin: Other (20 cm area of ulceration on the right anterior and posterior lower extremity with foul smell and purulent discharge. ) Eye(s): bilateral: Normal Inspection, PERRL Ear(s): Bilateral: Normal Throat: Normal Neck: Normal Cardiovascular: Rhythm Regular Respiratory: Normal Breath Sounds Gastrointestinal/Abdominal: Normal Exam, Bowel Sounds, Soft, No Tenderness Neurological/Psych: Oriented x3, Normal Speech, Normal Motor, Normal Sensation, Normal Reflexes ED Course And Treatment - Laboratory Results Result Diagrams: 07/29/17 13:43 07/29/17 13:43 O2 Sat by Pulse Oximetry: 94 (RA) Pulse Ox Interpretation: Abnormal Medical Decision Making Medical Decision Making: Impression: Plan: - Librium - Labs - UDS - EKG Reviewed the patient's medical record from June 2017. Wound cultures were performed at that time and showed organisms that were susceptible to Cipro. He was given a dose in the ED. 15:42: Spoke with Dr. Pendleton who accepted the patient to the med surg floor. Scribe Attestation: Documented by Melanie Curry acting as a scribe for JAIME Darden. Scribe Attestation: All medical record entries made by the Scribe were at my direction and personally dictated by me. I have reviewed the chart and agree that the record accurately reflects my personal performance of the history, physical exam, medical decision making, and the department course for this patient. I have also personally directed, reviewed, and agree with the discharge instructions and disposition. Disposition Doctor Will See Patient In The: Hospital Counseled Patient/Family Regarding: Studies Performed, Diagnosis - Disposition Disposition: HOSPITALIZED Disposition Time: 15:45 Condition: FAIR - Clinical Impression Clinical Impression: Infected traumatic ulcer of lower extremity, Alcohol withdrawal seizure Decision To Admit - Pt Status Changed To: Hospital Disposition Of: Inpatient - Admit Certification Admit to Inpatient:: After my assessment, the patient will require hospitalization for at least two midnights. This is because of the severity of symptoms shown, intensity of services needed, and/or the medical risk in this patient being treated as an outpatient. - InPatient: Physician Admission Certification: I certify that this patient requires 2 or more midnights of care for the following reason:: patient will need more then 2 days of IV antibiotics. - . Bed Request Type: Regular Admitting Physician: Jasson Pendleton Patient Diagnosis: Infected traumatic ulcer of lower extremity, Alcohol withdrawal seizure
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
[2017-07-29 17:27] VITALS: RESP 20
[2017-07-29 18:08] LABS: VENOUS BLOOD GAS PCO2 50 mmHg (40-60); VENOUS BLOOD GAS PO2 24 mm/Hg (30-55)
--- NOTE | 2017-07-29 18:46 | CT ---
PROCEDURE: CT HEAD WITHOUT CONTRAST. HISTORY: unwitnessed seizure; fall COMPARISON: Comparison is made with the previous study dated 07/09/2017 TECHNIQUE: Axial computed tomography images were obtained through the head/brain without intravenous contrast. Radiation dose: Total exam DLP = 1021.79 mGy-cm. This CT exam was performed using one or more of the following dose reduction techniques: Automated exposure control, adjustment of the mA and/or kV according to patient size, and/or use of iterative reconstruction technique. FINDINGS: HEMORRHAGE: No intracranial hemorrhage. BRAIN: Again noted is focal encephalomalacia at the left frontal lobe adjacent to left frontal craniotomy. Mild atrophy and mild chronic microvascular white matter ischemic disease are again noted. VENTRICLES: Unremarkable. No hydrocephalus. CALVARIUM: Prior frontal craniotomy changes are again noted. PARANASAL SINUSES: Mild mucosal thickening of the right maxillary sinus noted. MASTOID AIR CELLS: Unremarkable as visualized. No inflammatory changes. OTHER FINDINGS: None. IMPRESSION: No evidence of acute intracranial hemorrhage intracranial collection mass effect or midline shift. Re- demonstration of focal encephalomalacia at the left frontal lobe consistent with prior injury or infarction.
[2017-07-29 19:53] LABS: DILANTIN (PHENYTOIN) < 3.0 ug/mL (10-20)
[2017-07-29 19:55] LABS: VALPROIC ACID < 10.0 ug/mL (50.0-100.0)
[2017-07-29] MEDS: Piperacill/Tazo 3.375gm in Dex 3.375 GM/50 ML BAG IVPB SCH ×2 (20:00→23:57)
[2017-07-29] MEDS: Lactated Ringer's 1,000 ML IV SCH ×2 (20:02→23:58)
[2017-07-29] MEDS: Bacitracin 500 Units/gm Oint Foilpak UD TOP SCH (20:34)
[2017-07-29 22:07] LABS: SQUAMOUS EPITHIAL < 1 /hpf (0-5); URINE BILIRUBIN NEGATIVE (NEGATIVE); URINE BLOOD NEGATIVE (NEGATIVE); URINE CLARITY Clear (Clear); URINE COLOR Yellow (YELLOW); URINE GLUCOSE (UA) 1+ mg/dL (Normal); URINE LEUKOCYTE ESTERASE NEG Leu/uL (Negative); URINE PROTEIN NEGATIVE (NEGATIVE)
[2017-07-29 22:08] LABS: BARBITURATES, UR NEGATIVE (NEGATIVE); OPIATES, UR NEGATIVE (NEGATIVE); PHENCYCLIDINE, UR NEGATIVE (NEGATIVE)
[2017-07-29 22:09] LABS: BENZODIAZEPINES, UR POSITIVE (NEGATIVE)
[2017-07-30] MEDS: Piperacill/Tazo 3.375gm in Dex 3.375 GM/50 ML BAG IVPB SCH ×3 (05:21→18:22)
[2017-07-30 07:22] LABS: BASO % 0.2 % (0.0-2.0); EOS # 0.1 K/uL (0.0-0.7); EOS % 0.8 % (0.0-4.0); HEMOGLOBIN 13.5 g/dL (12.0-18.0); LYMPH # 1.4 K/uL (1.0-4.3); LYMPH % 14.9 % (20.0-40.0); MEAN CELL VOLUME 87.1 fL (80.0-94.0); MEAN CORPUSCULAR HEMOGLOBIN 29.9 pg (27.0-31.0); MEAN CORPUSCULAR HGB CONC 34.3 g/dL (33.0-37.0); MEAN PLATELET VOLUME 7.7 fL (7.2-11.7); MONO # 0.9 K/uL (0.0-0.8); NEUT # 7.1 K/uL (1.8-7.0); NEUT % 75.1 % (50.0-75.0); RBC 4.51 Mil/uL (4.40-5.90); RED CELL DISTRIBUTION WIDTH 14.8 % (11.5-14.5); WHITE BLOOD COUNT 9.5 K/uL (4.8-10.8)
[2017-07-30 07:38] LABS: LDL CHOLESTEROL 40 mg/dL (0-129)
[2017-07-30 07:40] LABS: ALBUMIN 3.3 g/dL (3.5-5.0); ALT/SGPT 19 U/L (21-72); AST/SGOT 33 U/L (17-59); BLOOD UREA NITROGEN 5 mg/dL (9-20); GFR AFRICAN-AMERICAN > 60; GFR NON-AFRICAN AMERICAN > 60; HDL CHOLESTEROL 56 mg/dL (30-70)
[2017-07-30] MEDS: Potassium Chloride 20 mEq ER Tab PO SCH ×2 (08:27→12:17)
[2017-07-30] MEDS ORDERED: Magnesium Sulfate 1 gm in D5W 1 GM/100 ML BAG IVPB ONE (08:30)
[2017-07-30] MEDS: Lactated Ringer's 1,000 ML IV SCH ×3 (08:32→23:09)
[2017-07-30] MEDS: Multiple Vitamins Tab PO SCH (09:30)
[2017-07-30] MEDS: Saccharomyces Boulardi 250 mg Cap PO SCH ×2 (09:30→17:38)
[2017-07-30] MEDS: Bacitracin 500 Units/gm Oint Foilpak UD TOP SCH (10:00)
--- NOTE | 2017-07-30 11:20 | RAD ---
PROCEDURE: Radiographs of the bilateral Tibiae and Fibulae. HISTORY: ??? osteomyelitis COMPARISON: Right tibia and fibula radiographs dated 07/29/2017. TECHNIQUE: Frontal and lateral views obtained. FINDINGS: BONES: RIGHT TIBIA: Stable postsurgical changes in the anterior mid tibial diaphysis. No acute fracture. No evidence of acute periosteal react. LEFT TIBIA: No fracture or destructive lesion. JOINT SPACES: RIGHT TIBIA: Normal. LEFT TIBIA: Normal. SOFT TISSUES: RIGHT TIBIA: Soft tissue surgical clips. LEFT TIBIA: Normal. OTHER FINDINGS: None. IMPRESSION: No demonstrated fracture, dislocation or radiographic evidence to suggest acute osteomyelitis.
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
[2017-07-30] MEDS ORDERED: DAPTOmycin 500 mg Inj (Cubicin) IV SCH (12:00)
--- NOTE | 2017-07-30 12:05 | CARD ---
APPROVED REPORT EKG Measurement Heart [id number] <Conclusion> Sinus tachycardia Otherwise normal ECG
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
[2017-07-31] MEDS: Lactated Ringer's 1,000 ML IV SCH
[2017-07-31] MEDS: Piperacill/Tazo 3.375gm in Dex 3.375 GM/50 ML BAG IVPB SCH ×3 (00:30→12:09)
[2017-07-31 08:17] LABS: BASO % 0.4 % (0.0-2.0); EOS # 0.2 K/uL (0.0-0.7); EOS % 2.8 % (0.0-4.0); HEMOGLOBIN 13.3 g/dL (12.0-18.0); LYMPH # 1.5 K/uL (1.0-4.3); LYMPH % 19.1 % (20.0-40.0); MEAN CELL VOLUME 88.4 fL (80.0-94.0); MEAN CORPUSCULAR HEMOGLOBIN 29.5 pg (27.0-31.0); MEAN CORPUSCULAR HGB CONC 33.3 g/dL (33.0-37.0); MEAN PLATELET VOLUME 7.8 fL (7.2-11.7); MONO # 0.8 K/uL (0.0-0.8); NEUT # 5.3 K/uL (1.8-7.0); NEUT % 67.7 % (50.0-75.0); NRBC % 0.1 % (0.0-2.0); RBC 4.49 Mil/uL (4.40-5.90); RED CELL DISTRIBUTION WIDTH 14.6 % (11.5-14.5); WHITE BLOOD COUNT 7.9 K/uL (4.8-10.8)
[2017-07-31 08:35] LABS: ALBUMIN 3.5 g/dL (3.5-5.0); ALT/SGPT 57 U/L (21-72); AST/SGOT 83 U/L (17-59); BLOOD UREA NITROGEN 5 mg/dL (9-20); GFR AFRICAN-AMERICAN > 60; GFR NON-AFRICAN AMERICAN > 60
[2017-07-31] MEDS: Mupirocin 2% Ointment (NASAL) NAS SCH ×3 (09:17→21:37)
[2017-07-31] MEDS: Saccharomyces Boulardi 250 mg Cap PO SCH ×2 (10:26→17:43)
[2017-07-31] MEDS: Multiple Vitamins Tab PO SCH (10:26)
[2017-07-31] MEDS: Silver Sulfadiazine 1% Cream (20 gm) TOP SCH (10:36)
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
[2017-08-01 07:31] LABS: BASO % 0.4 % (0.0-2.0); EOS # 0.2 K/uL (0.0-0.7); EOS % 3.1 % (0.0-4.0); HEMOGLOBIN 13.8 g/dL (12.0-18.0); LYMPH # 1.7 K/uL (1.0-4.3); LYMPH % 23.6 % (20.0-40.0); MEAN CELL VOLUME 88.1 fL (80.0-94.0); MEAN CORPUSCULAR HEMOGLOBIN 29.1 pg (27.0-31.0); MEAN CORPUSCULAR HGB CONC 33.1 g/dL (33.0-37.0); MEAN PLATELET VOLUME 8.3 fL (7.2-11.7); MONO # 0.9 K/uL (0.0-0.8); MONO % 11.6 % (0.0-10.0); NEUT # 4.5 K/uL (1.8-7.0); NEUT % 61.3 % (50.0-75.0); NRBC % 0.1 % (0.0-2.0); RBC 4.73 Mil/uL (4.40-5.90); RED CELL DISTRIBUTION WIDTH 14.9 % (11.5-14.5); WHITE BLOOD COUNT 7.4 K/uL (4.8-10.8)
[2017-08-01 07:36] LABS: ALBUMIN 3.7 g/dL (3.5-5.0); ALT/SGPT 45 U/L (21-72); AST/SGOT 47 U/L (17-59); BLOOD UREA NITROGEN 7 mg/dL (9-20); CALCIUM 9.3 mg/dl (8.6-10.4); GFR AFRICAN-AMERICAN > 60; GFR NON-AFRICAN AMERICAN > 60
--- NOTE | 2017-08-01 09:11 | CP.PCM.PN ---
Subjective - Date & Time of Evaluation Date of Evaluation: 08/01/17 Time of Evaluation: 09:08 - Subjective Subjective: Mr. Amador was seen and examined at the bedside. He remains alert, oriented in all spheres. He has bilateral lower extremities dressing, intact and dry. He denies any headache, dizziness, lightheadedness. He further states of experiencing seizures when he is discharged and no seizure activity while in the hospital. He also verbalizes of drinking mostly beer and no water. He further claims of beer is the same as water, educated the difference of alcohol and water, verbalizes understanding. There was no untoward events overnight. Objective - Vital Signs/Intake and Output Vital Signs (last 24 hours): Temp Pulse Resp BP Pulse Ox 98.1 F 87 20 114/76 95 08/01/17 04:00 08/01/17 04:00 08/01/17 04:00 08/01/17 04:00 08/01/17 04:00 - Medications Medications: Current Medications Acetaminophen (Tylenol 325mg Tab) 650 mg PO Q6 PRN PRN Reason: Fever >100.4 F Folic Acid (Folic Acid) 1 mg PO DAILY [facility] Last Admin: 07/31/17 10:26 Dose: 1 mg Heparin Sodium (Porcine) (Heparin) 5,000 units SC Q8 [facility] Last Admin: 08/01/17 05:55 Dose: 5,000 units Daptomycin 250 mg/ Sodium (Chloride) 50 mls @ 100 mls/hr IV Q24H [facility] Stop: 08/04/17 18:01 Last Admin: 07/31/17 17:41 Dose: 100 mls/hr Lorazepam (Ativan) 2 mg PO Q4H PRN PRN Reason: Symptoms of alcohol withdrawl Last Admin: 07/31/17 21:42 Dose: 2 mg Multivitamins (Hexavitamin) 1 tab PO DAILY [facility] Last Admin: 07/31/17 10:26 Dose: 1 tab Mupirocin (Bactroban 2% Nasal) 0.25 gm ROSI Q12 [facility] Stop: 08/05/17 08:01 Last Admin: 07/31/17 21:37 Dose: 0.25 gm Saccharomyces Boulardii (Florastor) 250 mg PO BID [facility] Last Admin: 07/31/17 17:43 Dose: 250 mg Silver Sulfadiazine (Silvadene 1% 20 Gm) 0 ea TOP DAILY [facility] Last Admin: 07/31/17 10:36 Dose: Not Given Thiamine HCl (Vitamin B1 Tab) 100 mg PO DAILY [facility] Last Admin: 07/31/17 10:26 Dose: 100 mg - Labs Labs: 08/01/17 07:03 08/01/17 07:03 - Constitutional Appears: No Acute Distress - Head Exam Head Exam: NORMAL INSPECTION - Eye Exam Pupil Exam: PERRL - Neurological Exam Neurological Exam: Alert, Awake, Oriented x3 Neuro motor strength exam: Left Upper Extremity: 5, Right Upper Extremity: 5, Left Lower Extremity: 5, Right Lower Extremity: 5 Additional comments: No neuro deficits. Assessment and Plan (1) Alcohol withdrawal seizure Assessment & Plan: Case discussed with Dr. Mcfarland, continue all current medical regimen. Pending EEG. Recommend to treat any underlying infection, electrolyte abnormalities, and hydration. Status: Acute
[2017-08-01] MEDS: Mupirocin 2% Ointment (NASAL) NAS SCH ×2 (10:19→21:26)
[2017-08-01] MEDS: Multiple Vitamins Tab PO SCH (10:19)
[2017-08-01] MEDS: Saccharomyces Boulardi 250 mg Cap PO SCH ×2 (10:19→17:25)
[2017-08-01] MEDS: Silver Sulfadiazine 1% Cream (20 gm) TOP SCH (11:14)
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
--- NOTE | 2017-08-02 07:01 | CP.PCM.PN ---
Subjective - Date & Time of Evaluation Date of Evaluation: 08/02/17 Time of Evaluation: 07:01 - Subjective Subjective: Mr. Amador was seen and examined at the bedside. He remains alert, oriented in all spheres. He has bilateral lower extremities dressing, intact and dry. He denies any headache, dizziness, lightheadedness. He is able to follow simple commands. There was no untoward events overnight. Objective - Vital Signs/Intake and Output Vital Signs (last 24 hours): Temp Pulse Resp BP Pulse Ox 98 F 83 20 103/70 98 08/01/17 23:35 08/01/17 23:35 08/01/17 23:35 08/01/17 23:35 08/01/17 23:35 - Medications Medications: Current Medications Acetaminophen (Tylenol 325mg Tab) 650 mg PO Q6 PRN PRN Reason: Fever >100.4 F Folic Acid (Folic Acid) 1 mg PO DAILY [facility] Last Admin: 08/01/17 10:19 Dose: 1 mg Heparin Sodium (Porcine) (Heparin) 5,000 units SC Q8 [facility] Last Admin: 08/02/17 05:50 Dose: 5,000 units Daptomycin 250 mg/ Sodium (Chloride) 50 mls @ 100 mls/hr IV Q24H [facility] Stop: 08/04/17 18:01 Last Admin: 08/01/17 17:25 Dose: 100 mls/hr Multivitamins (Hexavitamin) 1 tab PO DAILY [facility] Last Admin: 08/01/17 10:19 Dose: 1 tab Mupirocin (Bactroban 2% Nasal) 0.25 gm ROSI Q12 [facility] Stop: 08/05/17 08:01 Last Admin: 08/01/17 21:26 Dose: 0.25 gm Saccharomyces Boulardii (Florastor) 250 mg PO BID [facility] Last Admin: 08/01/17 17:25 Dose: 250 mg Thiamine HCl (Vitamin B1 Tab) 100 mg PO DAILY [facility] Last Admin: 08/01/17 10:19 Dose: 100 mg - Labs Labs: 08/01/17 07:03 08/01/17 07:03 - Constitutional Appears: No Acute Distress - Head Exam Head Exam: NORMAL INSPECTION - Eye Exam Pupil Exam: PERRL - Neurological Exam Neurological Exam: Alert, Awake, Oriented x3 Neuro motor strength exam: Left Upper Extremity: 5, Right Upper Extremity: 5, Left Lower Extremity: 5, Right Lower Extremity: 5 Additional comments: Neurological unchanged from previous examination. Assessment and Plan (1) Alcohol withdrawal seizure Assessment & Plan: Case discussed with Dr. Mcfarland, continue all current medical regimen. Pending EEG , if it is normal may discharge patient depending on primary team evaluation including wound care. Recommend to treat any underlying infection, electrolyte abnormalities, and hydration. Status: Acute
[2017-08-02 07:37] LABS: BASO % 0.3 % (0.0-2.0); EOS # 0.2 K/uL (0.0-0.7); LYMPH # 1.7 K/uL (1.0-4.3); LYMPH % 26.1 % (20.0-40.0); MEAN CELL VOLUME 87.9 fL (80.0-94.0); MEAN CORPUSCULAR HEMOGLOBIN 29.8 pg (27.0-31.0); MEAN CORPUSCULAR HGB CONC 33.9 g/dL (33.0-37.0); MEAN PLATELET VOLUME 7.9 fL (7.2-11.7); MONO # 0.9 K/uL (0.0-0.8); MONO % 13.7 % (0.0-10.0); NEUT # 3.8 K/uL (1.8-7.0); NEUT % 56.9 % (50.0-75.0); NRBC % 0.1 % (0.0-2.0); RBC 4.72 Mil/uL (4.40-5.90); RED CELL DISTRIBUTION WIDTH 14.7 % (11.5-14.5); WHITE BLOOD COUNT 6.7 K/uL (4.8-10.8)
[2017-08-02 08:09] LABS: ALBUMIN 3.9 g/dL (3.5-5.0); ALT/SGPT 41 U/L (21-72); AST/SGOT 39 U/L (17-59); BLOOD UREA NITROGEN 8 mg/dL (9-20); CALCIUM 9.5 mg/dl (8.6-10.4); GFR AFRICAN-AMERICAN > 60; GFR NON-AFRICAN AMERICAN > 60
[2017-08-02] MEDS: Multiple Vitamins Tab PO SCH (10:14)
[2017-08-02] MEDS: Mupirocin 2% Ointment (NASAL) NAS SCH ×2 (10:15→22:32)
[2017-08-02] MEDS: Saccharomyces Boulardi 250 mg Cap PO SCH ×2 (10:15→17:50)
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
--- NOTE | 2017-08-03 08:06 | CP.PCM.PN ---
Subjective - Date & Time of Evaluation Date of Evaluation: 08/03/17 Time of Evaluation: 08:06 - Subjective Subjective: Mr. Amador was seen and examined at the bedside. He remains alert, oriented in all spheres. He has bilateral lower extremities dressing, intact and dry. He denies any headache, dizziness, lightheadedness. He is able to follow simple commands. EEG showed normal.There was no untoward events overnight. Objective - Vital Signs/Intake and Output Vital Signs (last 24 hours): Temp Pulse Resp BP Pulse Ox 98.7 F 106 H 20 105/70 100 08/02/17 23:40 08/02/17 23:40 08/02/17 23:40 08/02/17 23:40 08/02/17 23:40 Intake and Output: 08/03/17 08/03/17 06:59 18:59 Output Total 300 Balance -300 - Medications Medications: Current Medications Acetaminophen (Tylenol 325mg Tab) 650 mg PO Q6 PRN PRN Reason: Fever >100.4 F Folic Acid (Folic Acid) 1 mg PO DAILY [facility] Last Admin: 08/02/17 10:14 Dose: 1 mg Heparin Sodium (Porcine) (Heparin) 5,000 units SC Q8 [facility] Last Admin: 08/03/17 05:36 Dose: 5,000 units Daptomycin 250 mg/ Sodium (Chloride) 50 mls @ 100 mls/hr IV Q24H LITA Stop: 08/04/17 18:01 Last Admin: 08/02/17 17:50 Dose: 100 mls/hr Multivitamins (Hexavitamin) 1 tab PO DAILY [facility] Last Admin: 08/02/17 10:14 Dose: 1 tab Mupirocin (Bactroban 2% Nasal) 0.25 gm ROSI Q12 LITA Stop: 08/05/17 08:01 Last Admin: 08/02/17 22:32 Dose: 0.25 gm Nicotine (Nicoderm Cq) 1 patch TD DAILY [facility] Last Admin: 08/02/17 11:17 Dose: 1 patch Saccharomyces Boulardii (Florastor) 250 mg PO BID [facility] Last Admin: 08/02/17 17:50 Dose: 250 mg Thiamine HCl (Vitamin B1 Tab) 100 mg PO DAILY [facility] Last Admin: 08/02/17 10:23 Dose: 100 mg - Labs Labs: 08/02/17 07:12 08/02/17 07:12 - Constitutional Appears: No Acute Distress - Head Exam Head Exam: NORMAL INSPECTION - Eye Exam Pupil Exam: PERRL - Neurological Exam Neurological Exam: Alert, Awake, Oriented x3 Neuro motor strength exam: Left Upper Extremity: 5, Right Upper Extremity: 5, Left Lower Extremity: 5, Right Lower Extremity: 5 Additional comments: Neurological unchanged from previous examination. Assessment and Plan (1) Alcohol withdrawal seizure Assessment & Plan: Case discussed with Dr. Mcfarland, continue all current medical regimen. Since the EEG is normal, may discharge patient depending on primary team evaluation including wound care. The seizure is due to his alcohol use.Recommend to treat any underlying infection, alcohol detox., electrolyte abnormalities, and hydration. Status: Acute
[2017-08-03 09:02] LABS: BASO % 0.5 % (0.0-2.0); EOS # 0.1 K/uL (0.0-0.7); EOS % 2.2 % (0.0-4.0); HEMOGLOBIN 14.9 g/dL (12.0-18.0); LYMPH # 1.3 K/uL (1.0-4.3); LYMPH % 21.4 % (20.0-40.0); MEAN CELL VOLUME 88.2 fL (80.0-94.0); MEAN CORPUSCULAR HEMOGLOBIN 29.8 pg (27.0-31.0); MEAN CORPUSCULAR HGB CONC 33.7 g/dL (33.0-37.0); MEAN PLATELET VOLUME 8.1 fL (7.2-11.7); MONO # 0.7 K/uL (0.0-0.8); MONO % 10.7 % (0.0-10.0); NEUT # 4.1 K/uL (1.8-7.0); NEUT % 65.2 % (50.0-75.0); RED CELL DISTRIBUTION WIDTH 14.8 % (11.5-14.5); WHITE BLOOD COUNT 6.2 K/uL (4.8-10.8)
[2017-08-03 09:18] LABS: ALB/GLOB RATIO 1.1 (1.0-2.1); ALBUMIN 4.2 g/dL (3.5-5.0); ALT/SGPT 38 U/L (21-72); AST/SGOT 36 U/L (17-59); BLOOD UREA NITROGEN 9 mg/dL (9-20); CALCIUM 9.4 mg/dl (8.6-10.4); GFR AFRICAN-AMERICAN > 60; GFR NON-AFRICAN AMERICAN > 60
[2017-08-03] MEDS: Saccharomyces Boulardi 250 mg Cap PO SCH ×2 (10:04→18:29)
[2017-08-03] MEDS: Multiple Vitamins Tab PO SCH (10:04)
[2017-08-03] MEDS: Mupirocin 2% Ointment (NASAL) NAS SCH ×2 (10:04→22:12)
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
--- NOTE | 2017-08-03 12:06 | EEG ---
DATE: Technical Information: Electrodes were placed according to the 10-20 International electrode system by space technologist. Total of 23 electrodes (21 EEG and 2 EKG) were placed. EEG activity was digitally recorded referentially to P1/P2 or A1/A2 electrodes. Continuous monitoring with EEG was performed using digital analysis for spike detection. The [employer] spike and seizure detection algorithms were used for digital EEG analysis throughout the monitoring period to screen the EEG in real-time and lydia the data file with pointers to electrographic seizures and interictal discharges. EEG was screened for electrographic seizures and interictal discharges by a technologist. Physician, epileptologist reviewed detections as well as extensive random samples and whole EEG study in detail. Digital EEG Analysis: Was carried out including FFT (Fast Fourier Transform), R2D2 (Rhythmicity Run Detection and Display), Relative Asymmetry Spectrogram, and voltage plot by the [employer] Software. The Qualitative EEG analysis and the voltage plot mapping were used for detection of foci of paroxysmal and abnormal electrical cortical activity. General Description: Background Rhythm: There is a well-formed, 8-10 Hz posterior dominant rhythm that is reactive, symmetric, and attenuates with eye opening. There was a normal amount of frontal beta noted bilaterally. There is no sleep recorded. Normal sleep patterns were captured, including bilaterally symmetric 12-14 Hz spindles, vertex waves, and K complexes. Activation Procedures: Photic stimulation: There is no driving noted. Hyperventilation: There is slowing noted that is self-remitted. Abnormal Activity: There are no focal epileptiform discharges noted. No clinical or subclinical seizures noted. Impression: This is a normal awake and sleep EEG. No clinical or subclinical seizures were noted. Clinical correlation is required. Constanza Corey MD
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
[2017-08-04 08:46] LABS: BASO % 0.4 % (0.0-2.0); EOS # 0.2 K/uL (0.0-0.7); EOS % 2.3 % (0.0-4.0); HEMOGLOBIN 14.4 g/dL (12.0-18.0); LYMPH # 1.7 K/uL (1.0-4.3); LYMPH % 23.5 % (20.0-40.0); MEAN CELL VOLUME 88.5 fL (80.0-94.0); MEAN CORPUSCULAR HEMOGLOBIN 29.7 pg (27.0-31.0); MEAN CORPUSCULAR HGB CONC 33.5 g/dL (33.0-37.0); MEAN PLATELET VOLUME 8.1 fL (7.2-11.7); MONO % 13.7 % (0.0-10.0); NEUT # 4.3 K/uL (1.8-7.0); NEUT % 60.1 % (50.0-75.0); NRBC % 0.1 % (0.0-2.0); RBC 4.85 Mil/uL (4.40-5.90); RED CELL DISTRIBUTION WIDTH 14.6 % (11.5-14.5); WHITE BLOOD COUNT 7.2 K/uL (4.8-10.8)
[2017-08-04 09:00] LABS: ALBUMIN 3.9 g/dL (3.5-5.0); ALT/SGPT 31 U/L (21-72); AST/SGOT 41 U/L (17-59); BLOOD UREA NITROGEN 7 mg/dL (9-20); CALCIUM 9.5 mg/dl (8.6-10.4); GFR AFRICAN-AMERICAN > 60; GFR NON-AFRICAN AMERICAN > 60
[2017-08-04] MEDS: Mupirocin 2% Ointment (NASAL) NAS SCH ×2 (10:25→21:54)
[2017-08-04] MEDS: Saccharomyces Boulardi 250 mg Cap PO SCH ×2 (10:25→17:42)
[2017-08-04] MEDS: Multiple Vitamins Tab PO SCH (10:25)
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
[2017-08-05 08:15] LABS: BASO % 0.3 % (0.0-2.0); EOS # 0.1 K/uL (0.0-0.7); EOS % 2.3 % (0.0-4.0); HEMOGLOBIN 13.9 g/dL (12.0-18.0); LYMPH # 1.5 K/uL (1.0-4.3); LYMPH % 24.5 % (20.0-40.0); MEAN CELL VOLUME 87.8 fL (80.0-94.0); MEAN CORPUSCULAR HEMOGLOBIN 29.9 pg (27.0-31.0); MEAN CORPUSCULAR HGB CONC 34.1 g/dL (33.0-37.0); MEAN PLATELET VOLUME 8.5 fL (7.2-11.7); MONO # 0.9 K/uL (0.0-0.8); MONO % 14.6 % (0.0-10.0); NEUT # 3.6 K/uL (1.8-7.0); NEUT % 58.3 % (50.0-75.0); RBC 4.64 Mil/uL (4.40-5.90); RED CELL DISTRIBUTION WIDTH 14.8 % (11.5-14.5); WHITE BLOOD COUNT 6.3 K/uL (4.8-10.8)
[2017-08-05 08:29] LABS: ALB/GLOB RATIO 1.2 (1.0-2.1); ALBUMIN 4.4 g/dL (3.5-5.0); ALT/SGPT 18 U/L (21-72); AST/SGOT 31 U/L (17-59); BLOOD UREA NITROGEN 11 mg/dL (9-20); CALCIUM 9.5 mg/dl (8.6-10.4); GFR AFRICAN-AMERICAN > 60; GFR NON-AFRICAN AMERICAN > 60
[2017-08-05] MEDS: Saccharomyces Boulardi 250 mg Cap PO SCH ×2 (09:17→17:54)
[2017-08-05] MEDS: Multiple Vitamins Tab PO SCH (09:17)
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
[2017-08-05] MEDS: Ciprofloxacin 400mg/200ml D5W 400 MG/200 ML BAG IVPB SCH (14:02)
[2017-08-05] MEDS: Clindamycin 300 MG in Sodium Chloride 0.9% 50 ML IVPB SCH ×2 (17:54→23:13)
[2017-08-06] MEDS: Ciprofloxacin 400mg/200ml D5W 400 MG/200 ML BAG IVPB SCH ×2 (02:32→14:04)
[2017-08-06] MEDS: Clindamycin 300 MG in Sodium Chloride 0.9% 50 ML IVPB SCH ×3 (07:53→23:49)
[2017-08-06 08:12] LABS: BASO % 0.5 % (0.0-2.0); EOS # 0.1 K/uL (0.0-0.7); EOS % 1.6 % (0.0-4.0); HEMOGLOBIN 13.7 g/dL (12.0-18.0); LYMPH # 1.3 K/uL (1.0-4.3); LYMPH % 20.5 % (20.0-40.0); MEAN CELL VOLUME 88.1 fL (80.0-94.0); MEAN CORPUSCULAR HEMOGLOBIN 29.9 pg (27.0-31.0); MEAN CORPUSCULAR HGB CONC 33.9 g/dL (33.0-37.0); MEAN PLATELET VOLUME 8.9 fL (7.2-11.7); MONO # 0.8 K/uL (0.0-0.8); MONO % 12.9 % (0.0-10.0); NEUT % 64.5 % (50.0-75.0); NRBC % 0.1 % (0.0-2.0); RBC 4.59 Mil/uL (4.40-5.90); RED CELL DISTRIBUTION WIDTH 14.7 % (11.5-14.5); WHITE BLOOD COUNT 6.2 K/uL (4.8-10.8)
[2017-08-06 08:22] LABS: ALB/GLOB RATIO 1.2 (1.0-2.1); ALBUMIN 4.3 g/dL (3.5-5.0); ALT/SGPT 25 U/L (21-72); AST/SGOT 23 U/L (17-59); BLOOD UREA NITROGEN 9 mg/dL (9-20); CALCIUM 9.4 mg/dl (8.6-10.4); GFR AFRICAN-AMERICAN > 60; GFR NON-AFRICAN AMERICAN > 60
[2017-08-06] MEDS: Saccharomyces Boulardi 250 mg Cap PO SCH ×2 (10:31→17:46)
[2017-08-06] MEDS: Multiple Vitamins Tab PO SCH (10:31)
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
[2017-08-07] MEDS: Ciprofloxacin 400mg/200ml D5W 400 MG/200 ML BAG IVPB SCH (01:27)
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
[2017-08-07 07:44] LABS: BASO % 0.5 % (0.0-2.0); EOS # 0.1 K/uL (0.0-0.7); EOS % 1.5 % (0.0-4.0); HEMOGLOBIN 13.8 g/dL (12.0-18.0); LYMPH # 1.5 K/uL (1.0-4.3); LYMPH % 21.7 % (20.0-40.0); MEAN CORPUSCULAR HGB CONC 33.7 g/dL (33.0-37.0); MEAN PLATELET VOLUME 9.1 fL (7.2-11.7); MONO # 1.1 K/uL (0.0-0.8); MONO % 16.4 % (0.0-10.0); NEUT % 59.9 % (50.0-75.0); RBC 4.61 Mil/uL (4.40-5.90); RED CELL DISTRIBUTION WIDTH 14.3 % (11.5-14.5); WHITE BLOOD COUNT 6.7 K/uL (4.8-10.8)
[2017-08-07 07:57] LABS: ALB/GLOB RATIO 1.2 (1.0-2.1); ALBUMIN 4.4 g/dL (3.5-5.0); ALT/SGPT 17 U/L (21-72); AST/SGOT 27 U/L (17-59); BLOOD UREA NITROGEN 8 mg/dL (9-20); CALCIUM 9.5 mg/dl (8.6-10.4); GFR AFRICAN-AMERICAN > 60; GFR NON-AFRICAN AMERICAN > 60
[2017-08-07 08:00] VITALS: BP 118/81; PULSE 100; TEMP 98; O2SAT 99
[2017-08-07] MEDS: Saccharomyces Boulardi 250 mg Cap PO SCH (09:50)
[2017-08-07] MEDS: Clindamycin 300 MG in Sodium Chloride 0.9% 50 ML IVPB SCH (09:50)
[2017-08-07] MEDS: Multiple Vitamins Tab PO SCH (09:50)
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
== END 2017-08-07 13:15 | disposition home or self-care (01) | DRG 901 ==
LOC: C.ER 12:41 → C.9E 15:47 → C.3T 16:06 → C.6T 19:58 → C.5S 08-04 02:29
PROVIDERS: ADMIT Hospitalist; ATTEND Family Medicine
DX: A41.9 Sepsis, unspecified organism (principal); E87.6 Hypokalemia; F10.239 Alcohol dependence with withdrawal, unspecified; L03.115 Cellulitis of right lower limb; L97.919 Non-pressure chronic ulcer of unspecified part of right lower leg with unspecified severity; L97.929 Non-pressure chronic ulcer of unspecified part of left lower leg with unspecified severity; R56.9 Unspecified convulsions; B95.62 Methicillin resistant Staphylococcus aureus infection as the cause of diseases classified elsewhere; F17.200 Nicotine dependence, unspecified, uncomplicated; M86.9 Osteomyelitis, unspecified; Z91.19 Patient's noncompliance with other medical treatment and regimen

== ENCOUNTER 2018-03-17 07:16 | Inpatient (IN) | payer MEDICAID ==
[2018-03-17 07:17] VITALS: BMI 21.9
[2018-03-17] MEDS ORDERED: levETIRAcetam 500 MG in Sodium Chloride 0.9% 100 ML IVPB STA (07:55)
[2018-03-17] MEDS ORDERED: Sodium Chloride 0.9% 1,000 ML IV ONE ×2 (07:55→12:01)
[2018-03-17 08:02] LABS: BASO % 0.2 % (0.0-2.0); EOS % 0.3 % (0.0-4.0); LYMPH % 7.8 % (20.0-40.0); MEAN CELL VOLUME 88.3 fL (80.0-94.0); MEAN CORPUSCULAR HEMOGLOBIN 28.7 pg (27.0-31.0); MEAN CORPUSCULAR HGB CONC 32.5 g/dL (33.0-37.0); MEAN PLATELET VOLUME 8.8 fL (7.2-11.7); MONO # 0.9 K/uL (0.0-0.8); MONO % 6.4 % (0.0-10.0); NEUT # 11.5 K/uL (1.8-7.0); NEUT % 85.3 % (50.0-75.0); PLATELET COUNT 134 K/uL (130-400); RBC 4.88 Mil/uL (4.40-5.90); RED CELL DISTRIBUTION WIDTH 14.5 % (11.5-14.5); WHITE BLOOD COUNT 13.5 K/uL (4.8-10.8)
[2018-03-17 08:18] LABS: BLOOD UREA NITROGEN 7 mg/dL (9-20); CALCIUM 8.7 mg/dl (8.6-10.4); GFR NON-AFRICAN AMERICAN > 60
[2018-03-17 08:26] LABS: BANDS 2 % (0-2); EOSINOPHIL 1 % (0-4); LYMPHOCYTE 6 % (20-40); MONOCYTE 7 % (0-10); NEUTROPHIL 84 % (50-75); PLATELET ESTIMATE NORMAL (NORMAL); TOTAL CELLS COUNTED 100
[2018-03-17 08:27] LABS: ANISOCYTOSIS SLIGHT
[2018-03-17 08:35] LABS: ALB/GLOB RATIO 1.3 (1.0-2.1); ALBUMIN 5.2 g/dL (3.5-5.0); ALT/SGPT 11 U/L (21-72); AST/SGOT 67 U/L (17-59)
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
--- NOTE | 2018-03-17 08:57 | RAD ---
HISTORY: SOB COMPARISON: Chest x-ray performed 02/04/18 TECHNIQUE: Chest, one view. FINDINGS: LUNGS: No focal consolidation. Please note that chest x-ray has limited sensitivity for the detection of pulmonary masses. PLEURA: No significant pleural effusion identified. No definite pneumothorax . CARDIOVASCULAR: Heart size appears within normal limits. Ectatic aorta. OSSEOUS STRUCTURES: Degenerative changes. VISUALIZED UPPER ABDOMEN: Unremarkable. OTHER FINDINGS: None. IMPRESSION: No focal consolidation.
--- NOTE | 2018-03-17 09:43 | CT ---
Date of service: 03/17/2018 PROCEDURE: CT HEAD WITHOUT CONTRAST. HISTORY: head injury COMPARISON: Noncontrast head CT performed 12/20/17 TECHNIQUE: Axial computed tomography images were obtained through the head/brain without intravenous contrast. Radiation dose: Total exam DLP = 1219.6 mGy-cm. This CT exam was performed using one or more of the following dose reduction techniques: Automated exposure control, adjustment of the mA and/or kV according to patient size, and/or use of iterative reconstruction technique. FINDINGS: Streak artifact obscures evaluation of the skull base. HEMORRHAGE: No intracranial hemorrhage. BRAIN: Diffuse atrophy with prominence of the ventricles and sulci noted. No mass effect or edema. Intracranial atherosclerosis. Encephalomalacia, left frontal lobe with volume loss and ex vacuo dilatation of the left frontal horn lateral ventricle. Mild scattered white matter hypodensities, which are nonspecific, but often seen with chronic microvascular ischemic disease. Please note that MRI with diffusion imaging is more sensitive in the detection of acute ischemic event. VENTRICLES: No hydrocephalus. CALVARIUM: Status post bifrontal craniotomy. PARANASAL SINUSES: Mucosal thickening, right maxillary sinus. MASTOID AIR CELLS: Unremarkable as visualized. No inflammatory changes. OTHER FINDINGS: Left preseptal soft tissue swelling. Partial opacification of the external auditory canals, likely cerumen. IMPRESSION: Extensive left preseptal soft tissue swelling. Left frontal encephalomalacia re-identified. The patient undergone bifrontal craniotomy. Nonspecific white matter changes. Streak artifact obscures evaluation of the skull base.
[2018-03-17 10:31] LABS: URINE BILIRUBIN NEGATIVE (NEGATIVE); URINE CLARITY Clear (Clear); URINE COLOR Yellow (YELLOW); URINE GLUCOSE (UA) NORMAL (Normal); URINE LEUKOCYTE ESTERASE NEG Leu/uL (Negative); URINE PROTEIN 1+ mg/dL (NEGATIVE); URINE UROBILINOGEN NORMAL mg/dL (0.2-1.0)
[2018-03-17 10:34] LABS: URINE BLOOD 1+ (NEGATIVE)
--- NOTE | 2018-03-17 10:59 | CT ---
Date of service: 03/17/2018 CT orbits without IV contrast Indication: Indication Comparison: Noncontrast head CT performed the same day Technique: Axial computed tomography images were obtained of the orbits without the use of intravenous contrast. Coronal and sagittal reformatted images were generated and reviewed. This CT exam was performed using 1 or more of the following dose reduction techniques: Automated exposure control, adjustment of the MAA and/or kV according to patient size, and/or use of iterative reconstruction technique. Radiation dose: Total exam DLP = 830.33 mGy-cm. Findings: Bifrontal craniotomy. Extensive left-sided preseptal soft tissue swelling. Right-sided preseptal soft tissue swelling and 1 mm radiopaque density consistent with foreign body evident. No acute displaced fracture appreciated. The temporomandibular joints appear located. The mastoid air cells appear clear. Mucosal thickening of the ethmoid air cells, frontal sinuses, and right maxillary sinus. Limited visualized brain demonstrates left frontal lobe encephalomalacia. Impression: Extensive left-sided preseptal soft tissue swelling. Right-sided preseptal soft tissue swelling and 1 mm radiopaque density consistent with foreign body. Bifrontal craniotomy. Mucosal thickening of the ethmoid air cells, frontal sinuses, and right maxillary sinus. Correlate for chronic sinusitis.
[2018-03-17 11:02] LABS: BARBITURATES, UR NEGATIVE (NEGATIVE); BENZODIAZEPINES, UR NEGATIVE (NEGATIVE); OPIATES, UR NEGATIVE (NEGATIVE); PHENCYCLIDINE, UR NEGATIVE (NEGATIVE)
[2018-03-17] MEDS ORDERED: Multivitamin (MVI) 10 ML, Thiamine 100 MG, Folic Acid 1 MG in Sodium Chloride 0.9% 1,00... IV ONE ×2 (12:02→12:30)
[2018-03-17] MEDS ORDERED: Vancomycin 1 GM 1 GM/250 ML BAG IV STA (12:10)
[2018-03-17] MEDS: Cefepime 1 GM in Sodium Chloride 0.9% 50 ML IVPB ONE ×2 (12:43→13:28)
[2018-03-17] MEDS ORDERED: Cefepime IV 1 gm in Dextrose 1 GM/50 ML BAG IVPB ONE (13:00)
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
[2018-03-17] MEDS ORDERED: Vancomycin 1 GM 1 GM/250 ML BAG IVPB ONE (13:21)
[2018-03-17] MEDS ORDERED: Divalproex 500 mg DR Tab PO ONE (13:48)
[2018-03-17] MEDS ORDERED: Metoprolol 1 mg/ml Inj IVP ONE (14:27)
[2018-03-17] MEDS ORDERED: THIAMINE IV SCH (15:00)
[2018-03-17] MEDS ORDERED: FOLIC ACID IV SCH (15:00)
[2018-03-17] MEDS ORDERED: [UNRECOGNIZED DRUG - OTHER] IV SCH (15:00)
[2018-03-17] MEDS ORDERED: MULTIVITAMIN IV SCH (15:00)
[2018-03-17 15:57] VITALS: RESP 20
[2018-03-17] MEDS ORDERED: Magnesium Sulfate 1 gm in D5W 1 GM/100 ML BAG IVPB ONE ×2 (16:00→18:00)
[2018-03-17] MEDS: Divalproex 250 mg DR Tab PO SCH (19:32)
[2018-03-17] MEDS: Piperacillin/Tazobact 3.375 GM in Sodium Chloride 100 ML IVPB SCH (22:31)
[2018-03-18] MEDS: Vancomycin 1 gm/NS 200 ml 1 GM/200 ML BAG IVPB SCH ×2 (00:37→11:27)
[2018-03-18 02:50] LABS: URINE BILIRUBIN NEGATIVE (NEGATIVE); URINE BLOOD NEGATIVE (NEGATIVE); URINE CLARITY Clear (Clear); URINE COLOR Yellow (YELLOW); URINE GLUCOSE (UA) NORMAL (Normal); URINE LEUKOCYTE ESTERASE NEG Leu/uL (Negative); URINE PROTEIN NEGATIVE (NEGATIVE)
[2018-03-18] MEDS: Piperacillin/Tazobact 3.375 GM in Sodium Chloride 100 ML IVPB SCH ×2 (05:12→22:00)
[2018-03-18 08:06] LABS: EOS # 0.1 K/uL (0.0-0.7); EOS % 1.5 % (0.0-4.0); MONO # 0.7 K/uL (0.0-0.8); NEUT % 75.1 % (50.0-75.0)
[2018-03-18 08:18] LABS: ALB/GLOB RATIO 1.3 (1.0-2.1); ALBUMIN 4.2 g/dL (3.5-5.0); ALT/SGPT 32 U/L (21-72); AST/SGOT 61 U/L (17-59); BLOOD UREA NITROGEN 7 mg/dL (9-20); CALCIUM 8.5 mg/dl (8.6-10.4); GFR NON-AFRICAN AMERICAN > 60
[2018-03-18 08:19] LABS: BASO % 0.2 % (0.0-2.0); LYMPH # 1.2 K/uL (1.0-4.3); LYMPH % 15.2 % (20.0-40.0); MEAN CELL VOLUME 88.8 fL (80.0-94.0); MEAN CORPUSCULAR HEMOGLOBIN 29.2 pg (27.0-31.0); MEAN CORPUSCULAR HGB CONC 32.9 g/dL (33.0-37.0); MEAN PLATELET VOLUME 8.4 fL (7.2-11.7); NEUT # 6.2 K/uL (1.8-7.0); RBC 4.45 Mil/uL (4.40-5.90); RED CELL DISTRIBUTION WIDTH 14.1 % (11.5-14.5); WHITE BLOOD COUNT 8.2 K/uL (4.8-10.8)
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
[2018-03-18] MEDS: Divalproex 250 mg DR Tab PO SCH (09:47)
[2018-03-18] MEDS: Potassium Chloride 20 mEq ER Tab PO SCH (09:49)
--- NOTE | 2018-03-18 11:24 | CP.PCM.PN ---
Subjective - Date & Time of Evaluation Date of Evaluation: 03/18/18 Time of Evaluation: 08:00 - Subjective Subjective: Neurology Progress Note: Patient was seen and examined at bedside in the AM. Patient states he is feeling well, as he is trying to make his bed. Patient states he was not taking his anti-seizure medication for about 4 months. Instead he was drinking alcohol as his medication. Patient states he has some leg pain but he states that is ongoing. Prior to being admitted to the hospital he states he was pouring vodka on his leg wounds to help them. Patient states he does not intend on stopping his drink habit as it has been going on since her was 16 years of age. Patient also states he will continue smoking his 2 packs per day as he does not want to stop. Patient denies chest pain, shortness of breath, dizziness, lighthead edness, nausea, vomiting, diarrhea or constipation. Objective - Vital Signs/Intake and Output Vital Signs (last 24 hours): Temp Pulse Resp BP Pulse Ox 98.0 F 97 H 20 120/73 96 03/18/18 07:00 03/18/18 07:00 03/18/18 07:00 03/18/18 07:00 03/18/18 07:00 Intake and Output: 03/18/18 03/18/18 06:59 18:59 Intake Total 2040 Output Total 1401 Balance 639 - Medications Medications: Current Medications Acetaminophen (Tylenol 325mg Tab) 650 mg PO Q6 PRN PRN Reason: Fever >100.4 F Chlordiazepoxide (Librium) 25 mg PO Q6 [facility]; Taper Stop: 03/21/18 17:59 Last Admin: 03/18/18 05:12 Dose: 25 mg Chlordiazepoxide (Librium) 25 mg PO Q4H PRN PRN Reason: Alcohol Withdrawal Last Admin: 03/17/18 14:04 Dose: 25 mg Clonidine HCl (Catapres) 0.1 mg PO Q4H PRN PRN Reason: Symptoms of alcohol withdrawl Divalproex Sodium (Depakote Dr) 750 mg PO BID [facility] Last Admin: 03/18/18 09:47 Dose: 750 mg Heparin Sodium (Porcine) (Heparin) 5,000 units SC Q8 [facility] Last Admin: 03/18/18 05:12 Dose: 5,000 units Multivitamins/Vitamin C 10 ml/Folic Acid 1 mg/ Thiamine HCl 100 mg/ Lactated Ringer's 1,011.2 mls @ 100 mls/hr IV Q24H [facility] Vancomycin/Sodium Chloride (Vancomycin 1 Gm/Ns 200 Ml) 1 gm in 200 mls @ 133.333 mls/hr IVPB Q12H [facility]; Protocol Last Admin: 03/18/18 00:37 Dose: 133.333 mls/hr Piperacillin Sod/Tazobactam (Sod 3.375 gm/ Sodium Chloride) 100 mls @ 200 mls/hr IVPB Q8H [facility]; Protocol Last Admin: 03/18/18 05:12 Dose: 200 mls/hr Potassium Chloride (K-Dur 20 Meq Er Tab) 20 meq PO DAILY [facility] Stop: 03/19/18 10:01 Last Admin: 03/18/18 09:49 Dose: 20 meq - Labs Labs: 03/18/18 08:01 03/18/18 08:01 - Constitutional Appears: No Acute Distress - Head Exam Head Exam: ATRAUMATIC, NORMAL INSPECTION - Eye Exam Eye Exam: EOMI. absent: Normal appearance (left eye contusion s/p fall) - ENT Exam ENT Exam: Mucous Membranes Moist Additional comments: missing a few front of his teeth - Respiratory Exam Respiratory Exam: Clear to Ausculation Bilateral, NORMAL BREATHING PATTERN - Cardiovascular Exam Cardiovascular Exam: REGULAR RHYTHM, +S1, +S2 - GI/Abdominal Exam GI & Abdominal Exam: Soft, Normal Bowel Sounds. absent: Tenderness - Neurological Exam Neurological Exam: Alert, Awake, CN II-XII Intact, Oriented x3 Neuro motor strength exam: Left Upper Extremity: 5, Right Upper Extremity: 5, Left Lower Extremity: 5, Right Lower Extremity: 5 - Skin Additional comments: chronic skin changes to bilateral lower extremities.
--- NOTE | 2018-03-18 11:33 | CP.PCM.CON ---
History of Present Illness - History of Present Illness History of Present Illness: Neurology Consult Note: 60 year old male with past medical history of of EtOH abuse, alcohol withdrawal seizures and non compliance presented to the ER on 03/17/17 after a witnessed tonic clonic seizure outside of [employer] causing patient to fall and strike his L face on the ground. Patient was seen and examined at bedside in the AM. Patient states he is feeling well, as he is trying to make his bed. Patient states he was not taking his anti-seizure medication for about 4 months. Instead he was drinking alcohol as his medication. Patient states he has some leg pain but he states that is ongoing. Prior to being admitted to the hospital he states he was pouring vodka on his leg wounds to help them. Patient states he does not intend on stopping his drink habit as it has been going on since her was 16 years of age. Patient also states he will continue smoking his 2 packs per day as he does not want to stop. Patient denies chest pain, shortness of breath, dizziness, lightheadedness, nausea, vomiting, diarrhea or constipation. Past Medical History: Seizure disorder, chronic lower leg wounds Past Surgical History: skin grafts (b/l legs), bifrontal craniotomy Home medications:patient does not recall names Allergies: NKDA Family History: one of 15 kids; Father - EtOH abuse; Mother - unknown cancer Social History: Homeless. Previously . Has a sister that lives in [place] that sometimes allows his to shower at her home. Alcohol: started at 16 years of age, 26 cans of beer (24 oz) daily. Smokes 2 packs of cigarettes per day. States he buys them for 2$ at a corner store. Review of Systems - Constitutional Constitutional: absent: Chills, Fever - Cardiovascular Cardiovascular: absent: Chest Pain, Dyspnea - Respiratory Respiratory: absent: Dyspnea - Gastrointestinal Gastrointestinal: absent: Constipation, Diarrhea, Nausea, Vomiting - Genitourinary Genitourinary: absent: Dysuria - Neurological Neurological: absent: Confusion, Dizziness, Numbness, Headaches, Tingling, Weakness Past Patient History - Infectious Disease Hx of Infectious Diseases: None - Past Medical History & Family History Past Medical History?: Yes - Past Social History Smoking Status: Unknown If Ever Smoked - CARDIAC Hx Cardiac Disorders: No - PULMONARY Hx Respiratory Disorders: No - NEUROLOGICAL Hx Seizures: Yes (as per triage triage) - HEENT Hx HEENT Problems: No - RENAL Hx Chronic Kidney Disease: No - ENDOCRINE/METABOLIC Hx Endocrine Disorders: No - HEMATOLOGICAL/ONCOLOGICAL Hx Blood Disorders: No - INTEGUMENTARY Hx Dermatological Problems: Yes Hx Palmer: Yes (HX) - MUSCULOSKELETAL/RHEUMATOLOGICAL Hx Musculoskeletal Disorders: No Hx Falls: No - GASTROINTESTINAL Hx Gastrointestinal Disorders: No - GENITOURINARY/GYNECOLOGICAL Hx Genitourinary Disorders: No - PSYCHIATRIC Hx Substance Use: No - SURGICAL HISTORY Hx Surgeries: Yes Other/Comment: skin graft. 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 (as per previous triage) - ANESTHESIA Hx Anesthesia: Yes Hx Anesthesia Reactions: No Hx Malignant Hyperthermia: No Meds Allergies/Adverse Reactions: Allergies Allergy/AdvReac Type Severity Reaction Status Date / Time No Known Allergies Allergy none Verified 03/08/18 00:47 - Medications Medications: Current Medications Acetaminophen (Tylenol 325mg Tab) 650 mg PO Q6 PRN PRN Reason: Fever >100.4 F Chlordiazepoxide (Librium) 25 mg PO Q6 [facility]; Taper Stop: 03/21/18 17:59 Last Admin: 03/18/18 11:27 Dose: 25 mg Chlordiazepoxide (Librium) 25 mg PO Q4H PRN PRN Reason: Alcohol Withdrawal Last Admin: 03/17/18 14:04 Dose: 25 mg Clonidine HCl (Catapres) 0.1 mg PO Q4H PRN PRN Reason: Symptoms of alcohol withdrawl Divalproex Sodium (Depakote Dr) 750 mg PO BID [facility] Last Admin: 03/18/18 09:47 Dose: 750 mg Heparin Sodium (Porcine) (Heparin) 5,000 units SC Q8 [facility] Last Admin: 03/18/18 05:12 Dose: 5,000 units Multivitamins/Vitamin C 10 ml/Folic Acid 1 mg/ Thiamine HCl 100 mg/ Lactated Ringer's 1,011.2 mls @ 100 mls/hr IV Q24H [facility] Vancomycin/Sodium Chloride (Vancomycin 1 Gm/Ns 200 Ml) 1 gm in 200 mls @ 133.333 mls/hr IVPB Q12H [facility]; Protocol Last Admin: 03/18/18 11:27 Dose: 133.333 mls/hr Piperacillin Sod/Tazobactam (Sod 3.375 gm/ Sodium Chloride) 100 mls @ 200 mls/hr IVPB Q8H [facility]; Protocol Last Admin: 03/18/18 05:12 Dose: 200 mls/hr Potassium Chloride (K-Dur 20 Meq Er Tab) 20 meq PO DAILY [facility] Stop: 03/19/18 10:01 Last Admin: 03/18/18 09:49 Dose: 20 meq Physical Exam - Constitutional Appears: No Acute Distress - Eye Exam Eye Exam: EOMI, PERRL. absent: Normal appearance (left eye contusion s/p fall)) Pupil Exam: NORMAL ACCOMODATION - ENT Exam ENT Exam: Mucous Membranes Moist Additional comments: missing a few front of his teeth - Respiratory Exam Respiratory Exam: Clear to Auscultation Bilateral, NORMAL BREATHING PATTERN - Cardiovascular Exam Cardiovascular Exam: REGULAR RHYTHM, +S1, +S2 - GI/Abdominal Exam GI & Abdominal Exam: Normal Bowel Sounds, Soft. absent: Tenderness - Extremities Exam Additional comments: chronic skin changes to bilateral lower extremities. - Neurological Exam Neurological exam: Alert, CN II-XII Intact, Oriented x3 - Expanded Neurological Exam Expanded Patient oriented to: person, place, time Cranial nerves: EOM's Intact: Normal, Facial Sensation: Normal, Nystagmus: Normal, Tongue Deviation: Normal Neuro motor strength exam: Left Upper Extremity: 5, Right Upper Extremity: 5, Left Lower Extremity: 5, Right Lower Extremity: 5 - Psychiatric Exam Psychiatric exam: Normal Affect Results - Vital Signs Recent Vital Signs: Last Vital Signs Temp 98.0 F 03/18/18 07:00 Pulse 97 H 03/18/18 07:00 Resp 20 03/18/18 07:00 BP 120/73 03/18/18 07:00 Pulse Ox 96 03/18/18 07:00 - Labs Result Diagrams: 03/18/18 08:01 03/18/18 08:01 Labs: Laboratory Results - last 24 hr 03/17/18 03/17/18 03/17/18 16:28 16:48 16:48 WBC RBC Hgb Hct MCV MCH MCHC RDW Plt Count MPV Neut % (Auto) Lymph % (Auto) [place] % (Auto) Eos % (Auto) Baso % (Auto) Neut # (Auto) Lymph # (Auto) [place] # (Auto) Eos # (Auto) Baso # (Auto) Differential Comment Sodium Potassium Chloride Carbon Dioxide Anion Gap BUN Creatinine Est GFR ( Amer) Est GFR (Non-Af Amer) POC Glucose (mg/dL) 89 Random Glucose Lactic Acid Calcium Phosphorus Magnesium Total Bilirubin AST ALT Alkaline Phosphatase Ammonia 32 D Total Protein Albumin Globulin Albumin/Globulin Ratio Procalcitonin 1.87 H Urine Color Urine Clarity Urine pH Ur Specific [place] Urine Protein Urine Glucose (UA) Urine Ketones Urine Blood Urine Nitrate Urine Bilirubin Urine Urobilinogen Ur Leukocyte Esterase Urine WBC (Auto) Urine RBC (Auto) 03/17/18 03/18/18 03/18/18 16:48 01:44 06:33 WBC RBC Hgb Hct MCV MCH MCHC RDW Plt Count MPV Neut % (Auto) Lymph % (Auto) [place] % (Auto) Eos % (Auto) Baso % (Auto) Neut # (Auto) Lymph # (Auto) [place] # (Auto) Eos # (Auto) Baso # (Auto) Differential Comment Sodium Potassium Chloride Carbon Dioxide Anion Gap BUN Creatinine Est GFR ( Amer) Est GFR (Non-Af Amer) POC Glucose (mg/dL) 92 Random Glucose Lactic Acid 1.1 Calcium Phosphorus Magnesium Total Bilirubin AST ALT Alkaline Phosphatase Ammonia Total Protein Albumin Globulin Albumin/Globulin Ratio Procalcitonin Urine Color Yellow Urine Clarity Clear Urine pH 7.0 Ur Specific [place] 1.010 Urine Protein Negative Urine Glucose (UA) Normal Urine Ketones Trace Urine Blood Negative Urine Nitrate Negative Urine Bilirubin Negative Urine Urobilinogen 2.0 Ur Leukocyte Esterase Neg Urine WBC (Auto) < 1 Urine RBC (Auto) 1 03/18/18 03/18/18 08:01 08:01 WBC 8.2 RBC 4.45 Hgb 13.0 Hct 39.5 MCV 88.8 MCH 29.2 MCHC 32.9 L RDW 14.1 Plt Count 111 L D MPV 8.4 Neut % (Auto) 75.1 H Lymph % (Auto) 15.2 L [place] % (Auto) 8.0 Eos % (Auto) 1.5 Baso % (Auto) 0.2 Neut # (Auto) 6.2 Lymph # (Auto) 1.2 [place] # (Auto) 0.7 Eos # (Auto) 0.1 Baso # (Auto) 0.0 Differential Comment Sodium 137 Potassium 3.3 L Chloride 101 Carbon Dioxide 31 H Anion Gap 9 L BUN 7 L Creatinine 0.6 L Est GFR ( Amer) > 60 Est GFR (Non-Af Amer) > 60 POC Glucose (mg/dL) Random Glucose 109 Lactic Acid Calcium 8.5 L Phosphorus 2.4 L Magnesium 1.7 Total Bilirubin 1.8 H AST 61 H ALT 32 Alkaline Phosphatase 84 Ammonia Total Protein 7.4 Albumin 4.2 Globulin 3.1 Albumin/Globulin Ratio 1.3 Procalcitonin Urine Color Urine Clarity Urine pH Ur Specific [place] Urine Protein Urine Glucose (UA) Urine Ketones Urine Blood Urine Nitrate Urine Bilirubin Urine Urobilinogen Ur Leukocyte Esterase Urine WBC (Auto) Urine RBC (Auto) Assessment & Plan - Assessment and Plan (Free Text) Assessment: Seizure History of seizure disorder - Witnessed tonic clonic seizure - Patient is non compliant with medications and states he drinks alcohol instead - CT Head: Extensive left preseptal soft tissue swelling. Left frontal encephalomalacia re-identified. The patient undergone bifrontal craniotomy. Nonspecific white matter changes. Streak artifact obscures evaluation of the skull base. - Neurochecks Q4H - Seizure precautions; Aspiration precautions; Fall precautions - Depakote DR 750mg PO BID -> discontinued due hepatic metabolism - Started Gabapentin 100mg tid - Gabapentin has also been shown to reduce alcohol consumption and craving Alcohol and Tobacco Dependence - Discussed with patient the importance of cessation. Case discussed with Dr. Burna Monroy PGY-2
[2018-03-18] MEDS ORDERED: Magnesium Sulfate 1 gm in D5W 1 GM/100 ML BAG IVPB ONE (11:45)
--- NOTE | 2018-03-18 11:51 | RAD ---
Date of service: 03/18/2018 HISTORY: Rule out aspiration COMPARISON: No prior. FINDINGS: LUNGS: No suspect minor bibasilar atelectasis. PLEURA: No significant pleural effusion identified, no pneumothorax apparent. CARDIOVASCULAR: Minor aortic atherosclerotic calcification present. Heart is upper limits-borderline enlarged... No pulmonary vascular congestion. OSSEOUS STRUCTURES: No significant abnormalities. VISUALIZED UPPER ABDOMEN: Normal. OTHER FINDINGS: None. IMPRESSION: Suspect minor bibasilar atelectasis.
[2018-03-18] MEDS ORDERED: MULTIVITAMIN IV SCH (12:30)
[2018-03-18] MEDS ORDERED: THIAMINE IV SCH (12:30)
[2018-03-18] MEDS ORDERED: FOLIC ACID IV SCH (12:30)
[2018-03-18] MEDS ORDERED: [UNRECOGNIZED DRUG - OTHER] IV SCH (12:30)
--- NOTE | 2018-03-18 16:16 | CARD ---
APPROVED REPORT Date of service: 03/17/2018 EKG Measurement Heart [id number] <Conclusion> Sinus tachycardia,rsr in v1 Otherwise normal ECG
[2018-03-19] MEDS: Vancomycin 1 gm/NS 200 ml 1 GM/200 ML BAG IVPB SCH ×2 (00:33→11:06)
[2018-03-19] MEDS: Potassium Chloride 20 mEq ER Tab PO SCH (10:33)
--- NOTE | 2018-03-19 10:55 | RAD ---
Date of service: 03/18/2018 PROCEDURE: Bilateral Feet Radiographs. HISTORY: rule out osteomyelitis COMPARISON: None. FINDINGS: BONES: Right Foot: No acute fracture seen smooth periosteal reaction projects over the posterior distal fibular shaft surgical marina and altered soft tissues here are noted. The S marina are seen medially on the frontal view and posteriorly on the lateral view. The periosteal reaction besides posterior also is seen laterally on the frontal view. No cortical disruption seen. A chronic osteo can simulate this. Formation from prior fracture is another consideration. Endosteal sclerosis thickening 4th proximal phalanx. Bala's tendon insetional enesthesophyte. Left Foot: No acute fracture seen. JOINTS: Right Foot: Mild arthrosis DIP joints. Mild 1st MTP osteoarthrosis Left Foot: Trace 1st MTP osteoarthrosis SOFT TISSUES: Right Foot: Altered posteriorly over each lower extremity specially the right-this also affects Kager's fat-pad Left Foot: Less altered with edema and Kager's fat-pad OTHER FINDINGS: None. IMPRESSION: Postsurgical changes on the right. The smooth periosteal reaction bordering the posterior distal fibula connoting an element of chronicity. Healed fracture here and/or or more chronic appearing osteomyelitis is a consideration. No gross cortical destruction seen. Acute on chronic osteo here is not excluded. No gas-forming cellulitis noted. However there is alteration of the posterior soft tissues and probably overlying bandage gauze which impedes optimal evaluation. Comments: If further evaluation is needed consider MRI
--- NOTE | 2018-03-19 11:55 | RAD ---
Date of service: 03/18/2018 PROCEDURE: Radiographs of the bilateral Tibiae and Fibulae. HISTORY: rule out osteomyelitis COMPARISON: None available. TECHNIQUE: Frontal and lateral views obtained. FINDINGS: BONES: RIGHT TIBIA: No fracture or destructive lesion. LEFT TIBIA: No fracture or destructive lesion. JOINT SPACES: RIGHT TIBIA: Normal. LEFT TIBIA: Normal. SOFT TISSUES: RIGHT TIBIA: Deep soft tissue ulcer adjacent to the posterior and lateral aspect of the right fibula. LEFT TIBIA: Normal. OTHER FINDINGS: None. IMPRESSION: Soft tissue swelling without acute articular or osseous abnormality. Specifically no radiographic manifestations of acute osteomyelitis. Large soft tissue ulcer posterior lateral aspect distal right lower extremity.
[2018-03-19] MEDS: Piperacillin/Tazobact 3.375 GM in Sodium Chloride 100 ML IVPB SCH ×2 (13:27→21:31)
--- NOTE | 2018-03-19 13:48 | CP.PCM.PN ---
Subjective - Date & Time of Evaluation Date of Evaluation: 03/19/18 Time of Evaluation: 07:20 - Subjective Subjective: Progress note for Dr. Harrell. Patient seen and examined at bedside. No acute events overnight. Patient is complaining of 5/10 RLE burning pain, however he states generally he feels better. Denies fever, chills, nausea, vomiting, chest pain, palpitations, shortness of breath. Objective - Vital Signs/Intake and Output Vital Signs (last 24 hours): Temp Pulse Resp BP Pulse Ox 98.2 F 90 20 110/74 98 03/19/18 08:00 03/19/18 08:00 03/19/18 08:00 03/19/18 08:00 03/19/18 08:00 - Medications Medications: Current Medications Acetaminophen (Tylenol 325mg Tab) 650 mg PO Q6 PRN PRN Reason: Fever >100.4 F Chlordiazepoxide (Librium) 25 mg PO TID [facility]; Taper Stop: 03/21/18 17:59 Last Admin: 03/19/18 10:33 Dose: 25 mg Chlordiazepoxide (Librium) 25 mg PO Q4H PRN PRN Reason: Alcohol Withdrawal Last Admin: 03/17/18 14:04 Dose: 25 mg Clonidine HCl (Catapres) 0.1 mg PO Q4H PRN PRN Reason: Symptoms of alcohol withdrawl Gabapentin (Neurontin) 100 mg PO TID [facility] Last Admin: 03/19/18 10:33 Dose: 100 mg Heparin Sodium (Porcine) (Heparin) 5,000 units SC Q8 [facility] Last Admin: 03/19/18 13:33 Dose: 5,000 units Multivitamins/Vitamin C 10 ml/Folic Acid 1 mg/ Thiamine HCl 100 mg/ Lactated Ringer's 1,011.2 mls @ 100 mls/hr IV Q24H [facility] Vancomycin/Sodium Chloride (Vancomycin 1 Gm/Ns 200 Ml) 1 gm in 200 mls @ 133.333 mls/hr IVPB Q12H [facility]; Protocol Last Admin: 03/19/18 11:06 Dose: 133.333 mls/hr Piperacillin Sod/Tazobactam (Sod 3.375 gm/ Sodium Chloride) 100 mls @ 200 mls/hr IVPB Q8H [facility]; Protocol Last Admin: 03/19/18 13:27 Dose: 200 mls/hr - Labs Labs: 03/18/18 08:01 03/18/18 08:01 - Additional Findings Additional findings: - Constitutional Appears: Other (malodorous) - Head Exam Head Exam: absent: ATRAUMATIC (L eye trauma) - Eye Exam Eye Exam: PERRLA, EOMI, Left orbital swelling improved - ENT Exam ENT Exam: Mucous Membranes Dry - Neck Exam Neck exam: Positive for: Normal Inspection - Respiratory Exam Respiratory Exam: Clear to Auscultation Bilateral, NORMAL BREATHING PATTERN. absent: Rales, Rhonchi, Wheezes, Respiratory Distress - Cardiovascular Exam Cardiovascular Exam: Regular rate, REGULAR RHYTHM, +S1, +S2 - GI/Abdominal Exam GI & Abdominal Exam: Normal Bowel Sounds, Soft. absent: Guarding, Rigid, Tenderness - Extremities Exam Additional comments: moves all extremities. Skin grafts b/l lower extremities. Non healing ulcer posterior R leg. - Neurological Exam Additional comments: Awake, alert, oriented. 5/5 muscle stregnth all expremities . - Skin Additional comments: chronic skin changes to bilateral lower extremities R>L. Assessment and Plan - Assessment and Plan (Free Text) Plan: 60 year old male with PMHx of EtOH abuse, alcohol withdrawal seizures, tobacco abuse disorder, chronic lower leg wounds presents to ED after witnessed tonic clonic seizure Seizure Hx of seizure disorder -Witnessed tonic clonic seizure -non compliant with medications -CT Head: Extensive left preseptal soft tissue swelling. Left frontal encephalomalacia re-identified. The patient undergone bifrontal craniotomy. No nspecific white matter changes. Streak artifact obscures evaluation of the skull base. -Neurochecks Q4H -Seizure precautions -Aspiration precautions -Fall precautions -CXR on admission: No acute dz. See full report. -repeat CXR 03/18 to rule out aspiration- Suspected minor bibasilar atelectasis. -Jenniferuo consult, Dr. Corey/Bruna. - Given Depakole DR 1000mg loading doseDepakote DR 750mg PO BID -> discontinued due hepatic metabolism - Started Gabapentin 100mg tid - Gabapentin has also been shown to reduce alcohol consumption and craving SIRS -On admission: Tmax 100.7, HR 120s, RR 24, WBC 13.5 -Blood no growth 24H -Urine cx -procalcitonin-1.87 -NS 1L bolus x2 -Vanco 1g Q12H -Zosyn 3.375 IV Q8H -Tylenol 650 Q6H PRN -Lopressor 2.5mg IVP once for tachycardia -possible source: leg wound Preseptal swelling secondary to head trauma s/p seizure -CT orbits: Extensive left-sided preseptal soft tissue swelling. Right-sided preseptal soft tissue swelling and 1 mm radiopaque density consistent with foreign body. Bifrontal craniotomy. Mucosal thickening of the ethmoid air cells, frontal sinuses, and right maxillary sinus. Correlate for chronic sinusitis. -ENT consult, Dr. Vasquez. Skin grafts bilateral legs Non healing skin wound R leg -Xray b/l [id number] -Podiatry consulted, Dr. Garcia -Wound care referral -ID, Farhat consulted. ETOH withdrawal -Alcohol on admission: 36 -[id number] PO Q6H -Librium 25mg PO Q4H PRN -Clonidine 0.1mg PO Q4H PRN -Banana bag -CIWA Ppx -PT/OT -Heparin 5000 SC Q8H Case discussed with Dr. Harrell. Zina Sauer, PGY-1
[2018-03-19 14:16] LABS: BASO % 0.5 % (0.0-2.0); EOS # 0.1 K/uL (0.0-0.7); EOS % 2.4 % (0.0-4.0); HEMOGLOBIN 12.6 g/dL (12.0-18.0); LYMPH # 1.4 K/uL (1.0-4.3); LYMPH % 25.1 % (20.0-40.0); MEAN CELL VOLUME 88.7 fL (80.0-94.0); MEAN CORPUSCULAR HEMOGLOBIN 29.3 pg (27.0-31.0); MEAN PLATELET VOLUME 8.6 fL (7.2-11.7); MONO # 0.7 K/uL (0.0-0.8); MONO % 13.6 % (0.0-10.0); NEUT # 3.2 K/uL (1.8-7.0); NEUT % 58.4 % (50.0-75.0); RBC 4.3 Mil/uL (4.40-5.90); RED CELL DISTRIBUTION WIDTH 14.3 % (11.5-14.5); WHITE BLOOD COUNT 5.5 K/uL (4.8-10.8)
[2018-03-19 14:37] LABS: ALB/GLOB RATIO 1.3 (1.0-2.1); ALT/SGPT 72 U/L (21-72); AST/SGOT 97 U/L (17-59); BLOOD UREA NITROGEN 10 mg/dL (9-20); CALCIUM 8.7 mg/dl (8.6-10.4); GFR NON-AFRICAN AMERICAN > 60
--- NOTE | 2018-03-19 15:05 | CP.PCM.CON ---
History of Present Illness - History of Present Illness History of Present Illness: dictated Past Patient History - Infectious Disease Hx of Infectious Diseases: None - Past Medical History & Family History Past Medical History?: Yes - Past Social History Smoking Status: Unknown If Ever Smoked - CARDIAC Hx Cardiac Disorders: No - PULMONARY Hx Respiratory Disorders: No - NEUROLOGICAL Hx Seizures: Yes (as per triage triage) - HEENT Hx HEENT Problems: No - RENAL Hx Chronic Kidney Disease: No - ENDOCRINE/METABOLIC Hx Endocrine Disorders: No - HEMATOLOGICAL/ONCOLOGICAL Hx Blood Disorders: No - INTEGUMENTARY Hx Dermatological Problems: Yes Hx Palmer: Yes (HX) - MUSCULOSKELETAL/RHEUMATOLOGICAL Hx Musculoskeletal Disorders: No Hx Falls: No - GASTROINTESTINAL Hx Gastrointestinal Disorders: No - GENITOURINARY/GYNECOLOGICAL Hx Genitourinary Disorders: No - PSYCHIATRIC Hx Substance Use: No - SURGICAL HISTORY Hx Surgeries: Yes Other/Comment: skin graft. 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 (as per previous triage) - ANESTHESIA Hx Anesthesia: Yes Hx Anesthesia Reactions: No Hx Malignant Hyperthermia: No Meds Allergies/Adverse Reactions: Allergies Allergy/AdvReac Type Severity Reaction Status Date / Time No Known Allergies Allergy none Verified 03/08/18 00:47 - Medications Medications: Current Medications Acetaminophen (Tylenol 325mg Tab) 650 mg PO Q6 PRN PRN Reason: Fever >100.4 F Chlordiazepoxide (Librium) 25 mg PO TID [facility]; Taper Stop: 03/21/18 17:59 Last Admin: 03/19/18 14:34 Dose: 25 mg Chlordiazepoxide (Librium) 25 mg PO Q4H PRN PRN Reason: Alcohol Withdrawal Last Admin: 03/17/18 14:04 Dose: 25 mg Clonidine HCl (Catapres) 0.1 mg PO Q4H PRN PRN Reason: Symptoms of alcohol withdrawl Gabapentin (Neurontin) 100 mg PO TID [facility] Last Admin: 03/19/18 14:34 Dose: 100 mg Heparin Sodium (Porcine) (Heparin) 5,000 units SC Q8 [facility] Last Admin: 03/19/18 13:33 Dose: 5,000 units Multivitamins/Vitamin C 10 ml/Folic Acid 1 mg/ Thiamine HCl 100 mg/ Lactated Ringer's 1,011.2 mls @ 100 mls/hr IV Q24H [facility] Last Admin: 03/19/18 14:34 Dose: 100 mls/hr Vancomycin/Sodium Chloride (Vancomycin 1 Gm/Ns 200 Ml) 1 gm in 200 mls @ 133.333 mls/hr IVPB Q12H [facility]; Protocol Last Admin: 03/19/18 11:06 Dose: 133.333 mls/hr Piperacillin Sod/Tazobactam (Sod 3.375 gm/ Sodium Chloride) 100 mls @ 200 mls/hr IVPB Q8H LITA; Protocol Last Admin: 03/19/18 13:27 Dose: 200 mls/hr Results - Vital Signs Recent Vital Signs: Last Vital Signs Temp 98.2 F 03/19/18 08:00 Pulse 90 03/19/18 08:00 Resp 20 03/19/18 08:00 BP 110/74 03/19/18 08:00 Pulse Ox 98 03/19/18 08:00 - Labs Result Diagrams: 03/19/18 14:07 03/19/18 14:07 Labs: Laboratory Results - last 24 hr 03/18/18 03/18/18 03/19/18 16:21 21:21 06:42 WBC RBC Hgb Hct MCV MCH MCHC RDW Plt Count MPV Neut % (Auto) Lymph % (Auto) Humphreys % (Auto) Eos % (Auto) Baso % (Auto) Neut # (Auto) Lymph # (Auto) Humphreys # (Auto) Eos # (Auto) Baso # (Auto) Differential Comment Sodium Potassium Chloride Carbon Dioxide Anion Gap BUN Creatinine Est GFR ( Amer) Est GFR (Non-Af Amer) POC Glucose (mg/dL) 104 108 132 H Random Glucose Calcium Phosphorus Magnesium Total Bilirubin AST ALT Alkaline Phosphatase Total Protein Albumin Globulin Albumin/Globulin Ratio 03/19/18 03/19/18 03/19/18 11:50 14:07 14:07 WBC 5.5 RBC 4.30 L Hgb 12.6 Hct 38.2 MCV 88.7 MCH 29.3 MCHC 33.0 RDW 14.3 Plt Count 106 L MPV 8.6 Neut % (Auto) 58.4 Lymph % (Auto) 25.1 Humphreys % (Auto) 13.6 H Eos % (Auto) 2.4 Baso % (Auto) 0.5 Neut # (Auto) 3.2 Lymph # (Auto) 1.4 Humphreys # (Auto) 0.7 Eos # (Auto) 0.1 Baso # (Auto) 0.0 Differential Comment Sodium 137 Potassium 3.5 L Chloride 100 Carbon Dioxide 32 H Anion Gap 10 BUN 10 Creatinine 0.6 L Est GFR ( Amer) > 60 Est GFR (Non-Af Amer) > 60 POC Glucose (mg/dL) 140 H Random Glucose 97 Calcium 8.7 Phosphorus 3.2 Magnesium 1.5 L Total Bilirubin 0.7 AST 97 H D ALT 72 D Alkaline Phosphatase 75 Total Protein 7.1 Albumin 4.0 Globulin 3.1 Albumin/Globulin Ratio 1.3
--- NOTE | 2018-03-19 18:34 | CP.PCM.PN ---
Subjective - Date & Time of Evaluation Date of Evaluation: 03/19/18 Time of Evaluation: 08:00 - Subjective Subjective: Neurology Progress Note: Patient was seen and examined at bedside in the AM. Patient is relaxing in bed eating breakfast. Patient states he is feeling very well. Patient denies complaints at this time. Objective - Vital Signs/Intake and Output Vital Signs (last 24 hours): Temp Pulse Resp BP Pulse Ox 99 F 85 20 112/70 96 03/19/18 15:50 03/19/18 15:50 03/19/18 15:50 03/19/18 15:50 03/19/18 15:50 Intake and Output: 03/19/18 03/19/18 06:59 18:59 Intake Total 1000 Balance 1000 - Medications Medications: Current Medications Acetaminophen (Tylenol 325mg Tab) 650 mg PO Q6 PRN PRN Reason: Fever >100.4 F Chlordiazepoxide (Librium) 25 mg PO BID [facility]; Taper Stop: 03/21/18 17:59 Last Admin: 03/19/18 17:49 Dose: 25 mg Chlordiazepoxide (Librium) 25 mg PO Q4H PRN PRN Reason: Alcohol Withdrawal Last Admin: 03/17/18 14:04 Dose: 25 mg Clonidine HCl (Catapres) 0.1 mg PO Q4H PRN PRN Reason: Symptoms of alcohol withdrawl Gabapentin (Neurontin) 100 mg PO TID [facility] Last Admin: 03/19/18 17:49 Dose: 100 mg Heparin Sodium (Porcine) (Heparin) 5,000 units SC Q8 [facility] Last Admin: 03/19/18 13:33 Dose: 5,000 units Multivitamins/Vitamin C 10 ml/Folic Acid 1 mg/ Thiamine HCl 100 mg/ Lactated Ringer's 1,011.2 mls @ 100 mls/hr IV Q24H [facility] Last Admin: 03/19/18 14:34 Dose: 100 mls/hr Vancomycin/Sodium Chloride (Vancomycin 1 Gm/Ns 200 Ml) 1 gm in 200 mls @ 133.333 mls/hr IVPB Q12H [facility]; Protocol Last Admin: 03/19/18 11:06 Dose: 133.333 mls/hr Piperacillin Sod/Tazobactam (Sod 3.375 gm/ Sodium Chloride) 100 mls @ 200 mls/hr IVPB Q8H [facility]; Protocol Last Admin: 03/19/18 13:27 Dose: 200 mls/hr - Labs Labs: 03/19/18 14:07 03/19/18 14:07 - Constitutional Appears: No Acute Distress, Older Than Stated Age - Head Exam Head Exam: ATRAUMATIC, NORMAL INSPECTION - Eye Exam Eye Exam: EOMI, PERRL Pupil Exam: NORMAL ACCOMODATION - ENT Exam ENT Exam: Mucous Membranes Moist - Respiratory Exam Respiratory Exam: NORMAL BREATHING PATTERN - Cardiovascular Exam Cardiovascular Exam: REGULAR RHYTHM - Extremities Exam Extremities Exam: Normal Inspection - Neurological Exam Neurological Exam: Alert, Awake, Oriented x3 - Psychiatric Exam Psychiatric exam: Normal Affect - Skin Skin Exam: Normal Color Assessment and Plan - Assessment and Plan (Free Text) Assessment: Seizure History of seizure disorder - Witnessed tonic clonic seizure - Patient is non compliant with medications and states he drinks alcohol instead - CT Head: Extensive left preseptal soft tissue swelling. Left frontal encephalomalacia re-identified. The patient undergone bifrontal craniotomy. Nonspecific white matter changes. Streak artifact obscures evaluation of the skull base. - Neurochecks Q4H - Seizure precautions; Aspiration precautions; Fall precautions - Depakote DR 750mg PO BID -> discontinued due hepatic metabolism - Continue Gabapentin 100mg tid - Gabapentin has also been shown to reduce alcohol consumption and craving Alcohol and Tobacco Dependence - Discussed with patient the importance of cessation. Thank you for this consult. Please re-consult if needed. Case discussed with Dr. Bruna Monroy PGY-2
[2018-03-20] MEDS: Vancomycin 1 gm/NS 200 ml 1 GM/200 ML BAG IVPB SCH ×2 (00:15→13:00)
[2018-03-20] MEDS: Piperacillin/Tazobact 3.375 GM in Sodium Chloride 100 ML IVPB SCH ×3 (05:29→13:30)
--- NOTE | 2018-03-20 06:03 | CON ---
DATE: 03/19/2018 INFECTIOUS DISEASE CONSULTATION REQUESTING PHYSICIAN: Dr. Harrell. REASON FOR CONSULTATION: The patient has chronic right leg ulceration. HISTORY OF PRESENT ILLNESS: He is a 58-year-old male. He has history of EtOH abuse, homelessness, alcohol withdrawal. He had seizures. He is noncompliant with his medications. He was found near [place] with his face downside, and he had a seizure. The patient was brought in here, and he is now fine. He wants to go out. He has leg wounds, and he has dressing done at this time. He does not intend to stop smoking or drinking. He denies, however, any headaches. No fever, no chills. No shortness of breath. No nausea, no vomiting. He does say he take medications. PAST MEDICAL HISTORY: Significant for seizure disorder and chronic lower extremity wound. SURGICAL HISTORY: Skin graft bilaterally and bifrontal craniotomy. HOME MEDICATIONS: He does not recall. ALLERGIES: HE IS NOT ALLERGIC TO ANY MEDICINE. FAMILY HISTORY: His father had EtOH abuse and mother has unknown cancer. SOCIAL HISTORY: He is homeless. REVIEW OF SYSTEMS: There were no fever, no chills, no chest pain, no dyspnea, no shortness of breath, no abdominal pain. No nausea, no vomiting, no diarrhea. He denies any urinary symptoms. He is alert, awake. Neurologically, he has no confusion. No headaches, no tingling. He does have history of seizures. He does not take any medications. He has been drinking. He has no hematological problems. He denies having any infections in the belly, though it seems he has ascites. He has history of blas and skin issues. He had skin grafts on his lower extremities. He denies any other drugs. 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 ALLERGIES: HE IS NOT ALLERGIC TO ANY MEDICINE. MEDICATIONS: Medications he is getting at present are, he is on Tylenol. I think we should stay away from Tylenol unless he has fever. Chlordiazepoxide, he is on Librium 25 p.o. every 4 hours p.r.n., is now 25 p.o. b.i.d. He is on clonidine 0.1 mg every 4 hours. He is on gabapentin 100 mg p.o. t.i.d. He is on heparin subcu. He is on MVI. He is on Zosyn and vancomycin at this time for ulcerations. PHYSICAL EXAMINATION: VITAL SIGNS: I find his temperature is 99, pulse 85, blood pressure 112/70, respirations are 20. HEENT: Head is atraumatic, normocephalic. Pupils are reacting to light. No icterus present. He had a left orbital swelling which is improved. Tongue is moist. NECK: Supple. JVP is flat. LUNGS: Clear to auscultation. No crackles or rales present. No wheezing. No rhonchi. HEART: S1, S2 regular. No murmurs appreciated. ABDOMEN: Soft, normal. No guarding, no rigidity present. Seems like he may have ascites. EXTREMITIES: Have bilateral skin grafts. Nonhealing ulcerations are present on the right leg which appeared to be superficial. Left leg is unremarkable. CENTRAL NERVOUS SYSTEM: He came in with seizure which was witnessed seizure. He also had a CT head which showed left frontal encephalomalacia because of previous surgery, undergone bilateral craniotomy, bifrontal craniotomy, nonspecific white matter disease. LABORATORY AND DIAGNOSTICS: Chest x-ray is negative, suspected a minor bibasilar atelectasis. He came in with SARS and procalcitonin was 1.87. He may have chronic sinusitis, mucosal thickening, and right maxillary sinusitis. So at this time, the patient's labs were noted. Labs showed right leg has gram-negative and gram-positive cocci. Further ID and sensitivity is pending. Blood culture and urine cultures are negative. White count is 5.5, hemoglobin 12.6, hematocrit 38.2, platelet count is 106. Potassium is 3.5, chloride is 100, CO2 is 32, BUN is 10, creatinine 0.6, magnesium is 1.8. AST is 97. He also had toxicology. Alcohol level was 36. IMPRESSION AND PLAN: My impression is this patient is admitted with alcohol abuse. He had an x-ray done. X-ray shows soft tissue swelling without acute articular or osseous abnormalities, specifically no radiological manifestation of acute osteomyelitis, large soft tissue ulcer posterior lateral aspect, distal right lower extremity. He has ulcerations but I do not think they are osteomyelitis. We will change the antibiotic to oral if there is an oral antibiotic once the ID and sensitivity is available. He was told to stop drinking, but I am not sure, and stop smoking, but this patient refuses to do so. Lidia Dougherty MD
[2018-03-20 08:31] LABS: BASO % 0.5 % (0.0-2.0); EOS # 0.1 K/uL (0.0-0.7); EOS % 2.5 % (0.0-4.0); HEMOGLOBIN 13.6 g/dL (12.0-18.0); LYMPH # 1.5 K/uL (1.0-4.3); LYMPH % 25.5 % (20.0-40.0); MEAN CELL VOLUME 88.2 fL (80.0-94.0); MEAN CORPUSCULAR HEMOGLOBIN 29.4 pg (27.0-31.0); MEAN CORPUSCULAR HGB CONC 33.4 g/dL (33.0-37.0); MEAN PLATELET VOLUME 8.4 fL (7.2-11.7); MONO # 0.8 K/uL (0.0-0.8); MONO % 13.5 % (0.0-10.0); NEUT # 3.4 K/uL (1.8-7.0); NRBC % 0.1 % (0.0-2.0); RBC 4.62 Mil/uL (4.40-5.90); RED CELL DISTRIBUTION WIDTH 14.3 % (11.5-14.5); WHITE BLOOD COUNT 5.9 K/uL (4.8-10.8)
[2018-03-20 08:53] LABS: ALB/GLOB RATIO 1.3 (1.0-2.1); ALT/SGPT 68 U/L (21-72); AST/SGOT 77 U/L (17-59); BLOOD UREA NITROGEN 7 mg/dL (9-20); CALCIUM 9.2 mg/dl (8.6-10.4); GFR NON-AFRICAN AMERICAN > 60
--- NOTE | 2018-03-20 09:22 | CP.PCM.PN ---
Subjective - Date & Time of Evaluation Date of Evaluation: 03/20/18 Time of Evaluation: 07:15 - Subjective Subjective: Progress note for Dr. Harrell. Patient seen and examined at bedside. Patient refused his IV antibiotics last night. States he feels well and has no complaints at this time. Denies fever, chills, nausea, vomiting, chest pain, palpitations, shortness of breath. Objective - Vital Signs/Intake and Output Vital Signs (last 24 hours): Temp Pulse Resp BP Pulse Ox 97.9 F 85 20 116/76 97 03/20/18 08:00 03/20/18 08:00 03/20/18 08:00 03/20/18 08:00 03/20/18 08:00 - Medications Medications: Current Medications Acetaminophen (Tylenol 325mg Tab) 650 mg PO Q6 PRN PRN Reason: Fever >100.4 F Chlordiazepoxide (Librium) 25 mg PO BID [facility]; Taper Stop: 03/21/18 17:59 Last Admin: 03/19/18 17:49 Dose: 25 mg Chlordiazepoxide (Librium) 25 mg PO Q4H PRN PRN Reason: Alcohol Withdrawal Last Admin: 03/17/18 14:04 Dose: 25 mg Clonidine HCl (Catapres) 0.1 mg PO Q4H PRN PRN Reason: Symptoms of alcohol withdrawl Gabapentin (Neurontin) 100 mg PO TID [facility] Last Admin: 03/19/18 17:49 Dose: 100 mg Heparin Sodium (Porcine) (Heparin) 5,000 units SC Q8 [facility] Last Admin: 03/20/18 05:30 Dose: 5,000 units Multivitamins/Vitamin C 10 ml/Folic Acid 1 mg/ Thiamine HCl 100 mg/ Lactated Ringer's 1,011.2 mls @ 100 mls/hr IV Q24H [facility] Last Admin: 03/19/18 14:34 Dose: 100 mls/hr Vancomycin/Sodium Chloride (Vancomycin 1 Gm/Ns 200 Ml) 1 gm in 200 mls @ 133.333 mls/hr IVPB Q12H [facility]; Protocol Last Admin: 03/20/18 00:15 Dose: 133.333 mls/hr Piperacillin Sod/Tazobactam (Sod 3.375 gm/ Sodium Chloride) 100 mls @ 200 mls/hr IVPB Q8H [facility]; Protocol Last Admin: 03/20/18 05:29 Dose: Not Given - Labs Labs: 03/20/18 08:19 03/20/18 08:19 - Additional Findings Additional findings: - Constitutional Appears: Other (malodorous) - Head Exam Head Exam: absent: ATRAUMATIC (L eye trauma) - Eye Exam Eye Exam: PERRLA, EOMI, Left orbital swelling improved - ENT Exam ENT Exam: Mucous Membranes Dry - Neck Exam Neck exam: Positive for: Normal Inspection - Respiratory Exam Respiratory Exam: Clear to Auscultation Bilateral, NORMAL BREATHING PATTERN. absent: Rales, Rhonchi, Wheezes, Respiratory Distress - Cardiovascular Exam Cardiovascular Exam: Regular rate, REGULAR RHYTHM, +S1, +S2 - GI/Abdominal Exam GI & Abdominal Exam: Normal Bowel Sounds, Soft. absent: Guarding, Rigid, Tenderness - Extremities Exam Additional comments: moves all extremities. Skin grafts b/l lower extremities. Non healing ulcer posterior R leg. - Neurological Exam Additional comments: Awake, alert, oriented. 5/5 muscle stregnth all expremities. - Skin Additional comments: chronic skin changes to bilateral lower extremities R>L. Assessment and Plan - Assessment and Plan (Free Text) Plan: 60 year old male with PMHx of EtOH abuse, alcohol withdrawal seizures, tobacco abuse disorder, chronic lower leg wounds presents to ED after witnessed tonic clonic seizure Seizure Hx of seizure disorder -Witnessed tonic clonic seizure -non compliant with medications -CT Head: Extensive left preseptal soft tissue swelling. Left frontal encephalomalacia re-identified. The patient undergone bifrontal craniotomy. Nonspecific white matter changes. Streak artifact obscures evaluation of the skull base. -Neurochecks Q4H -Seizure precautions -Aspiration precautions -Fall precautions -CXR on admission: No acute dz. See full report. -repeat CXR 03/18 to rule out aspiration- Suspected minor bibasilar atelectasis. -Jose consult, Dr. Corey/Bruna. - Given Depakole DR 1000mg loading doseDepakote DR 750mg PO BID -> discontinued due hepatic metabolism - Started Gabapentin 100mg tid - Gabapentin has also been shown to reduce alcohol consumption and craving SIRS -On admission: Tmax 100.7, HR 120s, RR 24, WBC 13.5 -Blood no growth 24H -Urine cx -procalcitonin-1.87 -NS 1L bolus x2 -Vanco 1g Q12H -Zosyn 3.375 IV Q8H -Tylenol 650 Q6H PRN -Lopressor 2.5mg IVP once for tachycardia -possible source: leg wound Preseptal swelling secondary to head trauma s/p seizure -CT orbits: Extensive left-sided preseptal soft tissue swelling. Right-sided preseptal soft tissue swelling and 1 mm radiopaque density consistent with foreign body. Bifrontal craniotomy. Mucosal thickening of the ethmoid air cells, frontal sinuses, and right maxillary sinus. Correlate for chronic sinusitis. -ENT consult, Dr. Vasquez. Skin grafts bilateral legs Non healing skin wound R leg -Xray b/l [id number] -Podiatry consulted, Dr. Garcia -Wound care referral -ID, Farhat consulted. ETOH withdrawal -Alcohol on admission: 36 -Iinquul84 PO Q6H -Librium 25mg PO Q4H PRN -Clonidine 0.1mg PO Q4H PRN -Banana bag -CIWA Ppx -PT/OT -Heparin 5000 SC Q8H Case discussed with Dr. Harrell. Zina Sauer, PGY-1
[2018-03-20 16:14] VITALS: BP 103/61; PULSE 80; TEMP 98.5; O2SAT 96
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
== END 2018-03-20 17:09 | disposition home or self-care (01) | DRG 750 ==
LOC: C.ER 07:16 → C.9E 12:11 → C.5S 13:49
PROVIDERS: ADMIT Internal Medicine; ATTEND Internal Medicine
PROC: HZ2ZZZZ Detoxification Services for Substance Abuse Treatment (ICD-10-PCS; principal; 2018-03-17)
DX: F10.239 Alcohol dependence with withdrawal, unspecified (principal); R65.10 Systemic inflammatory response syndrome (SIRS) of non-infectious origin without acute organ dysfunction; L97.919 Non-pressure chronic ulcer of unspecified part of right lower leg with unspecified severity; G40.509 Epileptic seizures related to external causes, not intractable, without status epilepticus; Y90.1 Blood alcohol level of 20-39 mg/100 ml; F17.210 Nicotine dependence, cigarettes, uncomplicated; S09.90XA Unspecified injury of head, initial encounter; Z59.0 Homelessness; Z91.14 Patient's other noncompliance with medication regimen; W18.30XA Fall on same level, unspecified, initial encounter; B95.4 Other streptococcus as the cause of diseases classified elsewhere; R22.0 Localized swelling, mass and lump, head

== ENCOUNTER 2018-04-04 19:43 | Inpatient (IN) | payer MEDICAID ==
[2018-04-04 19:44] VITALS: BMI 21.9
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
[2018-04-04] MEDS ORDERED: Piperacillin/Tazobact 3.375 gm 100 ML IVPB STA (20:33)
[2018-04-04 20:50] LABS: BASO # 0.1 K/uL (0.0-0.2); BASO % 0.8 % (0.0-2.0); EOS # 0.2 K/uL (0.0-0.7); HEMOGLOBIN 13.7 g/dL (12.0-18.0); LYMPH # 1.8 K/uL (1.0-4.3); LYMPH % 21.9 % (20.0-40.0); MEAN CELL VOLUME 88.3 fL (80.0-94.0); MEAN CORPUSCULAR HEMOGLOBIN 29.6 pg (27.0-31.0); MEAN CORPUSCULAR HGB CONC 33.6 g/dL (33.0-37.0); MEAN PLATELET VOLUME 8.1 fL (7.2-11.7); MONO # 1.1 K/uL (0.0-0.8); MONO % 12.9 % (0.0-10.0); NEUT # 5.2 K/uL (1.8-7.0); NEUT % 62.4 % (50.0-75.0); RBC 4.62 Mil/uL (4.40-5.90); RED CELL DISTRIBUTION WIDTH 14.4 % (11.5-14.5); WHITE BLOOD COUNT 8.4 K/uL (4.8-10.8)
[2018-04-04] MEDS ORDERED: Piperacillin/Tazobact 3.375 gm 100 ML IVPB ONE (21:09)
[2018-04-04 21:10] LABS: ALB/GLOB RATIO 1.2 (1.0-2.1); ALBUMIN 4.9 g/dL (3.5-5.0); ALT/SGPT 9 U/L (21-72); AST/SGOT 54 U/L (17-59); BLOOD UREA NITROGEN 6 mg/dL (9-20); CALCIUM 8.9 mg/dl (8.6-10.4); GFR NON-AFRICAN AMERICAN > 60
[2018-04-04 21:51] LABS: VENOUS BLOOD GAS BASE EXCESS 3.5 mmol/L (0.0-2.0); VENOUS BLOOD GAS PCO2 47 mmHg (40-60); VENOUS BLOOD GAS PO2 53 mm/Hg (30-55)
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
[2018-04-05] MEDS ORDERED: Piperacillin/Tazobact 3.375 gm 100 ML IVPB ONE ×3 (01:54→16:52)
[2018-04-05] MEDS ORDERED: Piperacill/Tazo 2.25gm in Dex 2.25 GM/50 ML BAG IVPB SCH (03:00)
[2018-04-05] MEDS: Piperacill/Tazo 3.375gm in Dex 3.375 GM/50 ML BAG IVPB SCH ×6 (03:01→21:34)
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
[2018-04-05] MEDS ORDERED: Vancomycin 1 GM 1 GM/250 ML BAG IVPB ONE (09:44)
[2018-04-05] MEDS: Vancomycin 1 gm/NS 200 ml 1 GM/200 ML BAG IVPB SCH ×3 (10:15→21:35)
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
--- NOTE | 2018-04-05 19:59 | CP.PCM.PN ---
Subjective - Date & Time of Evaluation Date of Evaluation: 04/05/18 Time of Evaluation: 08:30 - Subjective Subjective: clinically same Objective - Vital Signs/Intake and Output Vital Signs (last 24 hours): Temp Pulse Resp BP Pulse Ox 98.3 F 101 H 20 145/84 96 04/05/18 17:37 04/05/18 17:37 04/05/18 17:37 04/05/18 17:37 04/05/18 17:37 Intake and Output: 04/05/18 04/06/18 18:59 06:59 Intake Total 500 Balance 500 - Medications Medications: Current Medications Chlordiazepoxide (Librium) 25 mg PO Q8 PRN PRN Reason: Agitation Last Admin: 04/05/18 18:27 Dose: 25 mg Gabapentin (Neurontin) 100 mg PO TID [facility] Last Admin: 04/05/18 18:26 Dose: 100 mg Vancomycin/Sodium Chloride (Vancomycin 1 Gm/Ns 200 Ml) 1 gm in 200 mls @ 133 mls/hr IVPB Q12H [facility]; Protocol Stop: 04/10/18 09:31 Last Admin: 04/05/18 10:57 Dose: 133 mls/hr Piperacillin Sod/Tazobactam Sod (Zosyn 3.375 Gm Iv Premix) 3.375 gm in 50 mls @ 100 mls/hr IVPB Q6H [facility]; Protocol Last Admin: 04/05/18 16:51 Dose: 100 mls/hr - Labs Labs: 04/04/18 20:44 04/04/18 20:44 - Constitutional Appears: Well - Head Exam Head Exam: ATRAUMATIC, NORMAL INSPECTION, NORMOCEPHALIC - Eye Exam Eye Exam: EOMI, Normal appearance, PERRL Pupil Exam: NORMAL ACCOMODATION, PERRL - ENT Exam ENT Exam: Mucous Membranes Moist, Normal Exam - Neck Exam Neck Exam: Full ROM, Normal Inspection. absent: Lymphadenopathy - Respiratory Exam Respiratory Exam: Decreased Breath Sounds - Cardiovascular Exam Cardiovascular Exam: REGULAR RHYTHM, +S1, +S2 - GI/Abdominal Exam GI & Abdominal Exam: Soft, Diminished Bowel Sounds - Rectal Exam Rectal Exam: Deferred
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
[2018-04-05] MEDS ORDERED: Vancomycin 1 gm/NS 200 ml 1 GM/200 ML BAG IVPB SCH (21:30)
--- NOTE | 2018-04-05 21:41 | CP.PCM.CON ---
Past Patient History - Infectious Disease Hx of Infectious Diseases: None - Past Medical History & Family History Past Medical History?: Yes - Past Social History Smoking Status: Light Smoker < 10 Cigarettes Daily - CARDIAC Hx Cardiac Disorders: No - PULMONARY Hx Respiratory Disorders: No - NEUROLOGICAL Hx Seizures: Yes (as per triage triage) - HEENT Hx HEENT Problems: No - RENAL Hx Chronic Kidney Disease: No - ENDOCRINE/METABOLIC Hx Endocrine Disorders: No - HEMATOLOGICAL/ONCOLOGICAL Hx Blood Disorders: No - INTEGUMENTARY Hx Dermatological Problems: Yes Hx Palmer: Yes (HX) - MUSCULOSKELETAL/RHEUMATOLOGICAL Hx Falls: Yes - GASTROINTESTINAL Hx Gastrointestinal Disorders: No - GENITOURINARY/GYNECOLOGICAL Hx Genitourinary Disorders: No - PSYCHIATRIC Hx Substance Use: No - SURGICAL HISTORY Hx Surgeries: Yes Other/Comment: skin graft. 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 (as per previous triage) - ANESTHESIA Hx Anesthesia: Yes Hx Anesthesia Reactions: No Hx Malignant Hyperthermia: No Meds Allergies/Adverse Reactions: Allergies Allergy/AdvReac Type Severity Reaction Status Date / Time No Known Allergies Allergy none Verified 03/08/18 00:47 - Medications Medications: Current Medications Chlordiazepoxide (Librium) 25 mg PO Q8 PRN PRN Reason: Agitation Last Admin: 04/05/18 18:27 Dose: 25 mg Gabapentin (Neurontin) 100 mg PO TID LITA Last Admin: 04/05/18 18:26 Dose: 100 mg Vancomycin/Sodium Chloride (Vancomycin 1 Gm/Ns 200 Ml) 1 gm in 200 mls @ 133 mls/hr IVPB Q12H [facility]; Protocol Stop: 04/10/18 09:31 Last Admin: 04/05/18 21:35 Dose: 133 mls/hr Piperacillin Sod/Tazobactam Sod (Zosyn 3.375 Gm Iv Premix) 3.375 gm in 50 mls @ 100 mls/hr IVPB Q6H [facility]; Protocol Last Admin: 04/05/18 21:34 Dose: 100 mls/hr Results - Vital Signs Recent Vital Signs: Last Vital Signs Temp 98.3 F 04/05/18 17:37 Pulse 101 H 04/05/18 17:37 Resp 20 04/05/18 17:37 BP 145/84 04/05/18 17:37 Pulse Ox 96 04/05/18 17:37 - Labs Result Diagrams: 04/04/18 20:44 04/04/18 20:44 Labs: Laboratory Results - last 24 hr 04/04/18 04/05/18 21:30 06:32 pO2 53 VBG pH 7.40 VBG pCO2 47 VBG HCO3 27.4 VBG Total CO2 30.5 H VBG O2 Sat (Calc) 91.3 H VBG Base Excess 3.5 H VBG Potassium 3.9 Sodium 138.0 Chloride 105.0 Glucose 85 Lactate 1.5 Venous Blood Potassium 3.9 Alcohol, Quantitative < 10
[2018-04-06] MEDS: Piperacill/Tazo 3.375gm in Dex 3.375 GM/50 ML BAG IVPB SCH ×4 (03:18→21:59)
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
[2018-04-06 07:51] LABS: BASO # 0.1 K/uL (0.0-0.2); BASO % 0.8 % (0.0-2.0); EOS # 0.2 K/uL (0.0-0.7); EOS % 2.4 % (0.0-4.0); LYMPH # 1.1 K/uL (1.0-4.3); LYMPH % 17.8 % (20.0-40.0); MEAN CELL VOLUME 88.8 fL (80.0-94.0); MEAN CORPUSCULAR HEMOGLOBIN 28.8 pg (27.0-31.0); MEAN CORPUSCULAR HGB CONC 32.4 g/dL (33.0-37.0); MEAN PLATELET VOLUME 8.1 fL (7.2-11.7); MONO # 0.9 K/uL (0.0-0.8); MONO % 14.4 % (0.0-10.0); NEUT # 4.2 K/uL (1.8-7.0); NEUT % 64.6 % (50.0-75.0); RBC 4.52 Mil/uL (4.40-5.90); RED CELL DISTRIBUTION WIDTH 14.7 % (11.5-14.5); WHITE BLOOD COUNT 6.5 K/uL (4.8-10.8)
[2018-04-06 07:56] LABS: ALB/GLOB RATIO 1.3 (1.0-2.1); ALT/SGPT 16 U/L (21-72); AST/SGOT 21 U/L (17-59); BLOOD UREA NITROGEN 8 mg/dL (9-20); CALCIUM 8.6 mg/dl (8.6-10.4); GFR NON-AFRICAN AMERICAN > 60
[2018-04-06] MEDS: Vancomycin 1 gm/NS 200 ml 1 GM/200 ML BAG IVPB SCH ×2 (09:42→22:39)
[2018-04-06] MEDS: Enoxaparin 40 mg Syringe SC SCH (09:44)
[2018-04-06] MEDS: SILVASORB ANTIMICROBIAL WOUND GEL TOP SCH (10:14)
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
--- NOTE | 2018-04-06 11:44 | CP.PCM.PN ---
Subjective - Date & Time of Evaluation Date of Evaluation: 04/06/18 Time of Evaluation: 08:30 - Subjective Subjective: clinically same Objective - Vital Signs/Intake and Output Vital Signs (last 24 hours): Temp Pulse Resp BP Pulse Ox 98.7 F 92 H 20 109/68 95 04/06/18 07:59 04/06/18 07:59 04/06/18 07:59 04/06/18 07:59 04/06/18 07:59 Intake and Output: 04/06/18 04/06/18 06:59 18:59 Intake Total 600 Balance 600 - Medications Medications: Current Medications Chlordiazepoxide (Librium) 25 mg PO Q8 PRN PRN Reason: Agitation Last Admin: 04/05/18 18:27 Dose: 25 mg Enoxaparin Sodium (Lovenox) 40 mg SC DAILY [facility] Last Admin: 04/06/18 09:44 Dose: 40 mg Gabapentin (Neurontin) 100 mg PO TID LITA Last Admin: 04/06/18 09:44 Dose: 100 mg Vancomycin/Sodium Chloride (Vancomycin 1 Gm/Ns 200 Ml) 1 gm in 200 mls @ 133 mls/hr IVPB Q12H [facility]; Protocol Stop: 04/10/18 09:31 Last Admin: 04/06/18 09:42 Dose: 133 mls/hr Piperacillin Sod/Tazobactam Sod (Zosyn 3.375 Gm Iv Premix) 3.375 gm in 50 mls @ 100 mls/hr IVPB Q6H [facility]; Protocol Last Admin: 04/06/18 09:43 Dose: 100 mls/hr - Labs Labs: 04/06/18 07:17 04/06/18 07:17 - Constitutional Appears: Well - Head Exam Head Exam: ATRAUMATIC, NORMAL INSPECTION, NORMOCEPHALIC - Eye Exam Eye Exam: EOMI, Normal appearance, PERRL Pupil Exam: NORMAL ACCOMODATION, PERRL - ENT Exam ENT Exam: Mucous Membranes Moist, Normal Exam - Neck Exam Neck Exam: Full ROM, Normal Inspection. absent: Lymphadenopathy - Respiratory Exam Respiratory Exam: Decreased Breath Sounds - Cardiovascular Exam Cardiovascular Exam: REGULAR RHYTHM, +S1, +S2 - GI/Abdominal Exam GI & Abdominal Exam: Soft, Diminished Bowel Sounds - Rectal Exam Rectal Exam: Deferred
[2018-04-06] MEDS ORDERED: Potassium Chloride 20 mEq ER Tab PO STA (15:01)
[2018-04-06] MEDS: Multiple Vitamins Tab PO SCH (15:18)
--- NOTE | 2018-04-06 18:05 | CP.PCM.PN ---
Subjective - Date & Time of Evaluation Date of Evaluation: 04/06/18 Time of Evaluation: 15:00 - Subjective Subjective: dictated Objective - Vital Signs/Intake and Output Vital Signs (last 24 hours): Temp Pulse Resp BP Pulse Ox 99.8 F H 95 H 20 112/69 95 04/06/18 16:00 04/06/18 16:00 04/06/18 16:00 04/06/18 16:00 04/06/18 16:00 Intake and Output: 04/06/18 04/06/18 06:59 18:59 Intake Total 600 900 Balance 600 900 - Medications Medications: Current Medications Chlordiazepoxide (Librium) 25 mg PO Q8 PRN PRN Reason: Agitation Last Admin: 04/05/18 18:27 Dose: 25 mg Enoxaparin Sodium (Lovenox) 40 mg SC DAILY COUNTS [facility]CLUDE 234 BEDS AT THE [facility] Last Admin: 04/06/18 09:44 Dose: 40 mg Folic Acid (Folic Acid) 1 mg PO DAILY COUNTS INCLUDE 234 BEDS AT THE [facility] Last Admin: 04/06/18 15:18 Dose: 1 mg Gabapentin (Neurontin) 100 mg PO TID [facility] Last Admin: 04/06/18 17:05 Dose: 100 mg Vancomycin/Sodium Chloride (Vancomycin 1 Gm/Ns 200 Ml) 1 gm in 200 mls @ 133 mls/hr IVPB Q12H [facility]; Protocol Stop: 04/10/18 09:31 Last Admin: 04/06/18 09:42 Dose: 133 mls/hr Piperacillin Sod/Tazobactam Sod (Zosyn 3.375 Gm Iv Premix) 3.375 gm in 50 mls @ 100 mls/hr IVPB Q6H [facility]; Protocol Last Admin: 04/06/18 14:31 Dose: 100 mls/hr Meropenem 1 gm/ Sodium (Chloride) 100 mls @ 100 mls/hr IVPB Q8H [facility]; Protocol Multivitamins (Hexavitamin) 1 tab PO DAILY COUNTS INCLUDE 234 BEDS AT THE [facility] Last Admin: 04/06/18 15:18 Dose: 1 tab Thiamine HCl (Vitamin B1 Tab) 100 mg PO DAILY [facility] Last Admin: 04/06/18 15:18 Dose: 100 mg - Labs Labs: 04/06/18 07:17 04/06/18 07:17
[2018-04-06] MEDS: Meropenem 1 GM in Sodium Chloride 0.9% 100 ML IVPB SCH (18:07)
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
[2018-04-07] MEDS: Meropenem 1 GM in Sodium Chloride 0.9% 100 ML IVPB SCH ×3 (01:21→17:15)
[2018-04-07] MEDS: Piperacill/Tazo 3.375gm in Dex 3.375 GM/50 ML BAG IVPB SCH ×4 (02:01→21:39)
[2018-04-07 08:06] LABS: BASO % 0.6 % (0.0-2.0); EOS # 0.3 K/uL (0.0-0.7); EOS % 4.3 % (0.0-4.0); HEMOGLOBIN 12.7 g/dL (12.0-18.0); LYMPH # 1.3 K/uL (1.0-4.3); LYMPH % 19.8 % (20.0-40.0); MEAN CELL VOLUME 88.7 fL (80.0-94.0); MEAN CORPUSCULAR HEMOGLOBIN 28.8 pg (27.0-31.0); MEAN CORPUSCULAR HGB CONC 32.5 g/dL (33.0-37.0); MEAN PLATELET VOLUME 8.2 fL (7.2-11.7); MONO # 1.2 K/uL (0.0-0.8); MONO % 18.9 % (0.0-10.0); NEUT # 3.6 K/uL (1.8-7.0); NEUT % 56.4 % (50.0-75.0); NRBC % 0.2 % (0.0-2.0); RBC 4.39 Mil/uL (4.40-5.90); RED CELL DISTRIBUTION WIDTH 14.4 % (11.5-14.5); WHITE BLOOD COUNT 6.3 K/uL (4.8-10.8)
[2018-04-07 08:22] LABS: ALB/GLOB RATIO 1.4 (1.0-2.1); ALT/SGPT 18 U/L (21-72); AST/SGOT 25 U/L (17-59); BLOOD UREA NITROGEN 9 mg/dL (9-20); CALCIUM 8.5 mg/dl (8.6-10.4); GFR NON-AFRICAN AMERICAN > 60
[2018-04-07] MEDS: Enoxaparin 40 mg Syringe SC SCH (09:09)
[2018-04-07] MEDS: Multiple Vitamins Tab PO SCH (09:09)
[2018-04-07] MEDS: Vancomycin 1 gm/NS 200 ml 1 GM/200 ML BAG IVPB SCH ×2 (09:11→22:30)
[2018-04-07] MEDS: SILVASORB ANTIMICROBIAL WOUND GEL TOP SCH ×2 (09:12→09:13)
--- NOTE | 2018-04-07 14:12 | CP.PCM.PN ---
Subjective - Date & Time of Evaluation Date of Evaluation: 04/07/18 Time of Evaluation: 08:15 - Subjective Subjective: clinically same Objective - Vital Signs/Intake and Output Vital Signs (last 24 hours): Temp Pulse Resp BP Pulse Ox 98.1 F 88 20 106/67 95 04/07/18 08:00 04/07/18 08:00 04/07/18 08:00 04/07/18 08:00 04/07/18 08:00 Intake and Output: 04/07/18 04/07/18 06:59 18:59 Intake Total 390 Balance 390 - Medications Medications: Current Medications Chlordiazepoxide (Librium) 25 mg PO Q8 PRN PRN Reason: Agitation Last Admin: 04/05/18 18:27 Dose: 25 mg Enoxaparin Sodium (Lovenox) 40 mg SC DAILY [facility] Last Admin: 04/07/18 09:09 Dose: 40 mg Folic Acid (Folic Acid) 1 mg PO DAILY [facility] Last Admin: 04/07/18 09:09 Dose: 1 mg Gabapentin (Neurontin) 100 mg PO TID [facility] Last Admin: 04/07/18 09:09 Dose: 100 mg Vancomycin/Sodium Chloride (Vancomycin 1 Gm/Ns 200 Ml) 1 gm in 200 mls @ 133 mls/hr IVPB Q12H [facility]; Protocol Stop: 04/10/18 09:31 Last Admin: 04/07/18 09:11 Dose: 133 mls/hr Piperacillin Sod/Tazobactam Sod (Zosyn 3.375 Gm Iv Premix) 3.375 gm in 50 mls @ 100 mls/hr IVPB Q6H [facility]; Protocol Last Admin: 04/07/18 13:57 Dose: Not Given Meropenem 1 gm/ Sodium (Chloride) 100 mls @ 100 mls/hr IVPB Q8H [facility]; Protocol Last Admin: 04/07/18 09:19 Dose: 100 mls/hr Amikacin Sulfate 500 mg/ (Sodium Chloride) 102 mls @ 100 mls/hr IV Q12H [facility]; Protocol Last Admin: 04/07/18 05:26 Dose: 100 mls/hr Multivitamins (Hexavitamin) 1 tab PO DAILY [facility] Last Admin: 04/07/18 09:09 Dose: 1 tab Thiamine HCl (Vitamin B1 Tab) 100 mg PO DAILY [facility] Last Admin: 04/07/18 09:09 Dose: 100 mg - Labs Labs: 04/07/18 07:46 04/07/18 07:44 - Constitutional Appears: Well - Head Exam Head Exam: ATRAUMATIC, NORMAL INSPECTION, NORMOCEPHALIC - Eye Exam Eye Exam: EOMI, Normal appearance, PERRL Pupil Exam: NORMAL ACCOMODATION, PERRL - ENT Exam ENT Exam: Mucous Membranes Moist, Normal Exam - Neck Exam Neck Exam: Full ROM, Normal Inspection. absent: Lymphadenopathy - Respiratory Exam Respiratory Exam: Decreased Breath Sounds - Cardiovascular Exam Cardiovascular Exam: REGULAR RHYTHM, +S1, +S2 - GI/Abdominal Exam GI & Abdominal Exam: Soft, Diminished Bowel Sounds - Rectal Exam Rectal Exam: Deferred
--- NOTE | 2018-04-07 21:59 | CP.PCM.PN ---
Subjective - Date & Time of Evaluation Date of Evaluation: 04/07/18 Time of Evaluation: 17:00 - Subjective Subjective: dictated Objective - Vital Signs/Intake and Output Vital Signs (last 24 hours): Temp Pulse Resp BP Pulse Ox 99.1 F 92 H 20 120/76 95 04/07/18 16:00 04/07/18 16:00 04/07/18 16:00 04/07/18 16:00 04/07/18 16:00 Intake and Output: 04/07/18 04/08/18 18:59 06:59 Intake Total 950 Balance 950 - Medications Medications: Current Medications Chlordiazepoxide (Librium) 25 mg PO Q8 PRN PRN Reason: Agitation Last Admin: 04/05/18 18:27 Dose: 25 mg Enoxaparin Sodium (Lovenox) 40 mg SC DAILY [facility] Last Admin: 04/07/18 09:09 Dose: 40 mg Folic Acid (Folic Acid) 1 mg PO DAILY [facility] Last Admin: 04/07/18 09:09 Dose: 1 mg Gabapentin (Neurontin) 100 mg PO TID [facility] Last Admin: 04/07/18 17:13 Dose: 100 mg Vancomycin/Sodium Chloride (Vancomycin 1 Gm/Ns 200 Ml) 1 gm in 200 mls @ 133 mls/hr IVPB Q12H [facility]; Protocol Stop: 04/10/18 09:31 Last Admin: 04/07/18 09:11 Dose: 133 mls/hr Piperacillin Sod/Tazobactam Sod (Zosyn 3.375 Gm Iv Premix) 3.375 gm in 50 mls @ 100 mls/hr IVPB Q6H [facility]; Protocol Last Admin: 04/07/18 21:39 Dose: 100 mls/hr Meropenem 1 gm/ Sodium (Chloride) 100 mls @ 100 mls/hr IVPB Q8H [facility]; Protocol Last Admin: 04/07/18 17:15 Dose: 100 mls/hr Amikacin Sulfate 500 mg/ (Sodium Chloride) 102 mls @ 100 mls/hr IV Q12H [facility]; Protocol Last Admin: 04/07/18 17:14 Dose: 100 mls/hr Multivitamins (Hexavitamin) 1 tab PO DAILY [facility] Last Admin: 04/07/18 09:09 Dose: 1 tab Thiamine HCl (Vitamin B1 Tab) 100 mg PO DAILY [facility] Last Admin: 04/07/18 09:09 Dose: 100 mg - Labs Labs: 04/07/18 07:46 04/07/18 07:44
[2018-04-08] MEDS: Meropenem 1 GM in Sodium Chloride 0.9% 100 ML IVPB SCH ×3 (01:18→17:35)
[2018-04-08] MEDS: Piperacill/Tazo 3.375gm in Dex 3.375 GM/50 ML BAG IVPB SCH ×4 (02:17→21:49)
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
[2018-04-08] MEDS: Multiple Vitamins Tab PO SCH (09:40)
[2018-04-08] MEDS: Enoxaparin 40 mg Syringe SC SCH (09:41)
[2018-04-08] MEDS: Vancomycin 1 gm/NS 200 ml 1 GM/200 ML BAG IVPB SCH ×2 (09:42→21:48)
[2018-04-08] MEDS: SILVASORB ANTIMICROBIAL WOUND GEL TOP SCH (09:59)
--- NOTE | 2018-04-08 15:51 | CP.PCM.PN ---
Subjective - Date & Time of Evaluation Date of Evaluation: 04/08/18 Time of Evaluation: 08:00 - Subjective Subjective: clinically same Objective - Vital Signs/Intake and Output Vital Signs (last 24 hours): Temp Pulse Resp BP Pulse Ox 97.5 F L 87 20 98/65 L 97 04/08/18 08:11 04/08/18 08:11 04/08/18 08:11 04/08/18 08:11 04/08/18 08:11 Intake and Output: 04/08/18 04/08/18 06:59 18:59 Intake Total 1300 Balance 1300 - Medications Medications: Current Medications Chlordiazepoxide (Librium) 25 mg PO Q8 PRN PRN Reason: Agitation Last Admin: 04/05/18 18:27 Dose: 25 mg Enoxaparin Sodium (Lovenox) 40 mg SC DAILY [facility] Last Admin: 04/08/18 09:41 Dose: 40 mg Folic Acid (Folic Acid) 1 mg PO DAILY [facility] Last Admin: 04/08/18 09:40 Dose: 1 mg Gabapentin (Neurontin) 100 mg PO TID [facility] Last Admin: 04/08/18 14:40 Dose: 100 mg Vancomycin/Sodium Chloride (Vancomycin 1 Gm/Ns 200 Ml) 1 gm in 200 mls @ 133 mls/hr IVPB Q12H [facility]; Protocol Stop: 04/10/18 09:31 Last Admin: 04/08/18 09:42 Dose: 133 mls/hr Piperacillin Sod/Tazobactam Sod (Zosyn 3.375 Gm Iv Premix) 3.375 gm in 50 mls @ 100 mls/hr IVPB Q6H [facility]; Protocol Last Admin: 04/08/18 14:40 Dose: 100 mls/hr Meropenem 1 gm/ Sodium (Chloride) 100 mls @ 100 mls/hr IVPB Q8H [facility]; Protocol Last Admin: 04/08/18 09:54 Dose: 100 mls/hr Amikacin Sulfate 500 mg/ (Sodium Chloride) 102 mls @ 100 mls/hr IV Q12H [facility]; Protocol Last Admin: 04/08/18 06:10 Dose: 100 mls/hr Multivitamins (Hexavitamin) 1 tab PO DAILY [facility] Last Admin: 04/08/18 09:40 Dose: 1 tab Thiamine HCl (Vitamin B1 Tab) 100 mg PO DAILY [facility] Last Admin: 04/08/18 09:40 Dose: 100 mg - Labs Labs: 04/07/18 07:46 04/07/18 07:44
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
--- NOTE | 2018-04-08 21:57 | CP.PCM.PN ---
Subjective - Date & Time of Evaluation Date of Evaluation: 04/08/18 Time of Evaluation: 18:00 - Subjective Subjective: dictated Objective - Vital Signs/Intake and Output Vital Signs (last 24 hours): Temp Pulse Resp BP Pulse Ox 98 F 78 20 119/72 100 04/08/18 16:00 04/08/18 16:00 04/08/18 16:00 04/08/18 16:00 04/08/18 16:00 Intake and Output: 04/08/18 04/09/18 18:59 06:59 Intake Total 1000 Balance 1000 - Medications Medications: Current Medications Chlordiazepoxide (Librium) 25 mg PO Q8 PRN PRN Reason: Agitation Last Admin: 04/05/18 18:27 Dose: 25 mg Enoxaparin Sodium (Lovenox) 40 mg SC DAILY [facility] Last Admin: 04/08/18 09:41 Dose: 40 mg Folic Acid (Folic Acid) 1 mg PO DAILY [facility] Last Admin: 04/08/18 09:40 Dose: 1 mg Gabapentin (Neurontin) 100 mg PO TID [facility] Last Admin: 04/08/18 17:36 Dose: 100 mg Vancomycin/Sodium Chloride (Vancomycin 1 Gm/Ns 200 Ml) 1 gm in 200 mls @ 133 mls/hr IVPB Q12H [facility]; Protocol Stop: 04/10/18 09:31 Last Admin: 04/08/18 21:48 Dose: 133 mls/hr Piperacillin Sod/Tazobactam Sod (Zosyn 3.375 Gm Iv Premix) 3.375 gm in 50 mls @ 100 mls/hr IVPB Q6H [facility]; Protocol Last Admin: 04/08/18 21:49 Dose: 100 mls/hr Meropenem 1 gm/ Sodium (Chloride) 100 mls @ 100 mls/hr IVPB Q8H [facility]; Protocol Last Admin: 04/08/18 17:35 Dose: 100 mls/hr Amikacin Sulfate 500 mg/ (Sodium Chloride) 102 mls @ 100 mls/hr IV Q12H [facility]; Protocol Last Admin: 04/08/18 17:36 Dose: 100 mls/hr Multivitamins (Hexavitamin) 1 tab PO DAILY [facility] Last Admin: 04/08/18 09:40 Dose: 1 tab Pantoprazole Sodium (Protonix Ec Tab) 40 mg PO DAILY [facility] Thiamine HCl (Vitamin B1 Tab) 100 mg PO DAILY [facility] Last Admin: 04/08/18 09:40 Dose: 100 mg - Labs Labs: 04/07/18 07:46 04/07/18 07:44
[2018-04-09] MEDS: Meropenem 1 GM in Sodium Chloride 0.9% 100 ML IVPB SCH ×3 (03:00→17:25)
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
[2018-04-09 07:28] LABS: BASO % 0.7 % (0.0-2.0); EOS # 0.3 K/uL (0.0-0.7); EOS % 4.5 % (0.0-4.0); HEMOGLOBIN 13.6 g/dL (12.0-18.0); LYMPH # 1.6 K/uL (1.0-4.3); LYMPH % 23.2 % (20.0-40.0); MEAN CELL VOLUME 88.1 fL (80.0-94.0); MEAN CORPUSCULAR HEMOGLOBIN 28.6 pg (27.0-31.0); MEAN CORPUSCULAR HGB CONC 32.4 g/dL (33.0-37.0); MONO # 0.8 K/uL (0.0-0.8); MONO % 11.1 % (0.0-10.0); NEUT # 4.3 K/uL (1.8-7.0); NEUT % 60.5 % (50.0-75.0); RBC 4.75 Mil/uL (4.40-5.90); RED CELL DISTRIBUTION WIDTH 14.5 % (11.5-14.5)
[2018-04-09 07:49] LABS: ALB/GLOB RATIO 1.3 (1.0-2.1); ALBUMIN 4.2 g/dL (3.5-5.0); ALT/SGPT 24 U/L (21-72); AST/SGOT 31 U/L (17-59); BLOOD UREA NITROGEN 11 mg/dL (9-20); CALCIUM 9.2 mg/dl (8.6-10.4); GFR NON-AFRICAN AMERICAN > 60
[2018-04-09] MEDS: Vancomycin 1 gm/NS 200 ml 1 GM/200 ML BAG IVPB SCH ×2 (08:41→21:07)
[2018-04-09] MEDS: Multiple Vitamins Tab PO SCH (09:12)
[2018-04-09] MEDS: Pantoprazole 40 mg EC Tab PO SCH (09:12)
[2018-04-09] MEDS: Enoxaparin 40 mg Syringe SC SCH (09:12)
[2018-04-09] MEDS: SILVASORB ANTIMICROBIAL WOUND GEL TOP SCH (09:26)
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
--- NOTE | 2018-04-09 14:16 | CP.PCM.PN ---
Subjective - Date & Time of Evaluation Date of Evaluation: 04/09/18 Time of Evaluation: 08:00 - Subjective Subjective: clinically same Objective - Vital Signs/Intake and Output Vital Signs (last 24 hours): Temp Pulse Resp BP Pulse Ox 97.8 F 83 18 112/73 97 04/09/18 08:28 04/09/18 08:28 04/09/18 08:28 04/09/18 00:00 04/09/18 08:28 Intake and Output: 04/09/18 04/09/18 06:59 18:59 Intake Total 500 Balance 500 - Medications Medications: Current Medications Chlordiazepoxide (Librium) 25 mg PO Q8 PRN PRN Reason: Agitation Last Admin: 04/05/18 18:27 Dose: 25 mg Enoxaparin Sodium (Lovenox) 40 mg SC DAILY [facility] Last Admin: 04/09/18 09:12 Dose: 40 mg Folic Acid (Folic Acid) 1 mg PO DAILY [facility] Last Admin: 04/09/18 09:12 Dose: 1 mg Gabapentin (Neurontin) 100 mg PO TID [facility] Last Admin: 04/09/18 13:36 Dose: 100 mg Vancomycin/Sodium Chloride (Vancomycin 1 Gm/Ns 200 Ml) 1 gm in 200 mls @ 133 mls/hr IVPB Q12H [facility]; Protocol Stop: 04/10/18 09:31 Last Admin: 04/09/18 08:41 Dose: 133 mls/hr Meropenem 1 gm/ Sodium (Chloride) 100 mls @ 100 mls/hr IVPB Q8H [facility]; Protocol Last Admin: 04/09/18 11:15 Dose: 100 mls/hr Amikacin Sulfate 500 mg/ (Sodium Chloride) 102 mls @ 100 mls/hr IV Q12H [facility]; Protocol Last Admin: 04/09/18 05:20 Dose: 100 mls/hr Multivitamins (Hexavitamin) 1 tab PO DAILY [facility] Last Admin: 04/09/18 09:12 Dose: 1 tab Pantoprazole Sodium (Protonix Ec Tab) 40 mg PO DAILY [facility] Last Admin: 04/09/18 09:12 Dose: 40 mg Thiamine HCl (Vitamin B1 Tab) 100 mg PO DAILY [facility] Last Admin: 04/09/18 09:12 Dose: 100 mg - Labs Labs: 04/09/18 07:20 04/09/18 07:20 - Constitutional Appears: Well - Head Exam Head Exam: ATRAUMATIC, NORMAL INSPECTION, NORMOCEPHALIC - Eye Exam Eye Exam: EOMI, Normal appearance, PERRL Pupil Exam: NORMAL ACCOMODATION, PERRL - ENT Exam ENT Exam: Mucous Membranes Moist, Normal Exam - Neck Exam Neck Exam: Full ROM, Normal Inspection. absent: Lymphadenopathy - Respiratory Exam Respiratory Exam: Decreased Breath Sounds - Cardiovascular Exam Cardiovascular Exam: REGULAR RHYTHM, +S1, +S2 - GI/Abdominal Exam GI & Abdominal Exam: Soft, Diminished Bowel Sounds - Rectal Exam Rectal Exam: Deferred
[2018-04-09 16:17] VITALS: RESP 20
[2018-04-10] MEDS: Meropenem 1 GM in Sodium Chloride 0.9% 100 ML IVPB SCH ×3 (01:30→17:51)
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
[2018-04-10 07:41] LABS: ALB/GLOB RATIO 1.3 (1.0-2.1); ALBUMIN 4.4 g/dL (3.5-5.0); ALT/SGPT 15 U/L (21-72); AST/SGOT 40 U/L (17-59); BLOOD UREA NITROGEN 9 mg/dL (9-20); CALCIUM 9.2 mg/dl (8.6-10.4); GFR NON-AFRICAN AMERICAN > 60
[2018-04-10] MEDS: Multiple Vitamins Tab PO SCH (09:31)
[2018-04-10] MEDS: Enoxaparin 40 mg Syringe SC SCH (09:31)
[2018-04-10] MEDS: Pantoprazole 40 mg EC Tab PO SCH (09:31)
[2018-04-10] MEDS: Vancomycin 1 gm/NS 200 ml 1 GM/200 ML BAG IVPB SCH (09:32)
[2018-04-10] MEDS: SILVASORB ANTIMICROBIAL WOUND GEL TOP SCH (09:35)
[2018-04-10 11:50] LABS: BASO % 0.6 % (0.0-2.0); EOS # 0.2 K/uL (0.0-0.7); EOS % 2.8 % (0.0-4.0); HEMOGLOBIN 13.4 g/dL (12.0-18.0); LYMPH # 1.7 K/uL (1.0-4.3); LYMPH % 23.2 % (20.0-40.0); MEAN CELL VOLUME 89.2 fL (80.0-94.0); MEAN CORPUSCULAR HEMOGLOBIN 29.2 pg (27.0-31.0); MEAN CORPUSCULAR HGB CONC 32.7 g/dL (33.0-37.0); MEAN PLATELET VOLUME 8.6 fL (7.2-11.7); MONO # 0.7 K/uL (0.0-0.8); MONO % 10.1 % (0.0-10.0); NEUT # 4.7 K/uL (1.8-7.0); NEUT % 63.3 % (50.0-75.0); RBC 4.61 Mil/uL (4.40-5.90); RED CELL DISTRIBUTION WIDTH 14.7 % (11.5-14.5); WHITE BLOOD COUNT 7.4 K/uL (4.8-10.8)
[2018-04-10] MEDS ORDERED: Gadodiamide 287 MG/ML VIAL (15ML) IV ONE (15:03)
--- NOTE | 2018-04-10 16:12 | CP.PCM.PN ---
Subjective - Date & Time of Evaluation Date of Evaluation: 04/10/18 Time of Evaluation: 08:00 - Subjective Subjective: clinically same Objective - Vital Signs/Intake and Output Vital Signs (last 24 hours): Temp Pulse Resp BP Pulse Ox 98.0 F 80 20 119/68 95 04/10/18 08:25 04/10/18 08:25 04/10/18 08:25 04/10/18 08:25 04/10/18 08:25 Intake and Output: 04/10/18 04/10/18 06:59 18:59 Intake Total 800 780 Balance 800 780 - Medications Medications: Current Medications Chlordiazepoxide (Librium) 25 mg PO Q8 PRN PRN Reason: Agitation Last Admin: 04/05/18 18:27 Dose: 25 mg Enoxaparin Sodium (Lovenox) 40 mg SC DAILY [facility] Last Admin: 04/10/18 09:31 Dose: 40 mg Folic Acid (Folic Acid) 1 mg PO DAILY [facility] Last Admin: 04/10/18 09:31 Dose: 1 mg Gabapentin (Neurontin) 100 mg PO TID [facility] Last Admin: 04/10/18 13:29 Dose: 100 mg Meropenem 1 gm/ Sodium (Chloride) 100 mls @ 100 mls/hr IVPB Q8H [facility]; Protocol Last Admin: 04/10/18 11:11 Dose: 100 mls/hr Amikacin Sulfate 500 mg/ (Sodium Chloride) 102 mls @ 100 mls/hr IV Q12H [facility]; Protocol Last Admin: 04/10/18 05:30 Dose: 100 mls/hr Multivitamins (Hexavitamin) 1 tab PO DAILY [facility] Last Admin: 04/10/18 09:31 Dose: 1 tab Pantoprazole Sodium (Protonix Ec Tab) 40 mg PO DAILY [facility] Last Admin: 04/10/18 09:31 Dose: 40 mg Thiamine HCl (Vitamin B1 Tab) 100 mg PO DAILY [facility] Last Admin: 04/10/18 09:31 Dose: 100 mg - Labs Labs: 04/10/18 11:31 04/10/18 07:13 - Constitutional Appears: Well - Head Exam Head Exam: ATRAUMATIC, NORMAL INSPECTION, NORMOCEPHALIC - Eye Exam Eye Exam: EOMI, Normal appearance, PERRL Pupil Exam: NORMAL ACCOMODATION, PERRL - ENT Exam ENT Exam: Mucous Membranes Moist, Normal Exam - Neck Exam Neck Exam: Full ROM, Normal Inspection. absent: Lymphadenopathy - Respiratory Exam Respiratory Exam: Decreased Breath Sounds - Cardiovascular Exam Cardiovascular Exam: REGULAR RHYTHM, +S1, +S2 - GI/Abdominal Exam GI & Abdominal Exam: Soft, Diminished Bowel Sounds - Rectal Exam Rectal Exam: Deferred
--- NOTE | 2018-04-10 16:20 | MRI ---
MRI right tibia and fibula HISTORY: Osteomyelitis. Comparison: X-ray dated 04/04/2018 Technique: Multi-echo multiplanar sequences were performed through the right tibia and fibula without and with the use of intravenous contrast. Findings: Prominent soft tissue ulceration seen within the anterior soft tissues at the level of the mid tibia extending to the anterior cortex of the mid tibia. There is cortical thickening along the anterior and anterolateral cortex of the tibia at this level. In addition, there appears to be some mild increased STIR signal as well as some minimal patchy reactive edema with minimal post-contrast enhancement seen within the anterior lateral cortex of the tibia at this level best seen on series 7 and 13 images 2 through 13 which may represent an acute periostitis. There is some adjacent faint increased STIR and post-contrast enhancement seen within the medullary cavity at this level as demonstrated on series 7, image 9 as well as series 12, image 12, nonspecific. This may represent prominent vasculature as this likely does not represent a gross acute osteomyelitis at this juncture; however, some mild early acute and or developing acute osteomyelitic changes cannot entirely be excluded. Clinical correlation. Correlation with nuclear medicine bone scan may be helpful. Additional thickening of the periosteum along the lateral cortex of the distal fibula as demonstrated on series 7 and 13, images 21 through 33 also demonstrating increased STIR signal with some patchy post-contrast edema. These findings may also represent an acute periostitis. Clinical correlation. At the level of the distal fibula, there is some increased STIR signal within the distal fibula as demonstrated on series 6 and 12 images 7 and 8 which may be the sequelae of failure of fat suppression however a small focus of acute osteomyelitis at this level cannot entirely be excluded. Clinical correlation. Correlation with nuclear medicine bone scan may be helpful. Reactive edema seen within the medial and lateral heads of the gastrocnemius muscle bellies as well as the soleus muscle belly and peroneus muscle belly suggestive for an acute myositis. Clinical correlation. Reticulation edema within the circumferential subcutaneous soft tissues. Blooming artifact seen within the medial and lateral soft tissues which may represent postsurgical change. Correlation with x-ray may be helpful to exclude air at this level. Clinical correlation. Impression: 1. Prominent soft tissue ulceration seen within the anterior soft tissues at the level of the mid tibia extending to the anterior cortex of the mid tibia. There is cortical thickening along the anterior and anterolateral cortex of the tibia at this level. In addition, there appears to be some mild increased STIR signal as well as some minimal patchy reactive edema with minimal post-contrast enhancement seen within the anterior lateral cortex of the tibia at this level best seen on series 7 and 13 images 2 through 13 which may represent an acute periostitis. There is some adjacent faint increased STIR and post-contrast enhancement seen within the medullary cavity at this level as demonstrated on series 7, image 9 as well as series 12, image 12, nonspecific. This may represent prominent vasculature as this likely does not represent a gross acute osteomyelitis at this juncture; however, some mild early acute and or developing acute osteomyelitic changes cannot entirely be excluded. Clinical correlation. Correlation with nuclear medicine bone scan may be helpful. 2. Additional thickening of the periosteum along the lateral cortex of the distal fibula as demonstrated on series 7 and 13, images 21 through 33 also demonstrating increased STIR signal with some patchy post-contrast edema. These findings may also represent an acute periostitis. Clinical correlation. At the level of the distal fibula, there is some increased STIR signal within the distal fibula as demonstrated on series 6 and 12 images 7 and 8 which may be the sequelae of failure of fat suppression however a small focus of acute osteomyelitis at this level cannot entirely be excluded. Clinical correlation. Correlation with nuclear medicine bone scan may be helpful. 3. Reactive edema seen within the medial and lateral heads of the gastrocnemius muscle bellies as well as the soleus muscle belly and peroneus muscle belly suggestive for an acute myositis. Clinical correlation. 4. Reticulation edema within the circumferential subcutaneous soft tissues. 5. Blooming artifact seen within the medial and lateral soft tissues which may represent postsurgical change. Correlation with x-ray may be helpful to exclude air at this level. Clinical correlation.
[2018-04-11] MEDS: Meropenem 1 GM in Sodium Chloride 0.9% 100 ML IVPB SCH ×2 (01:25→09:46)
[2018-04-11 07:02] LABS: BASO # 0.1 K/uL (0.0-0.2); BASO % 0.7 % (0.0-2.0); EOS # 0.2 K/uL (0.0-0.7); EOS % 2.6 % (0.0-4.0); HEMOGLOBIN 13.8 g/dL (12.0-18.0); LYMPH # 2.2 K/uL (1.0-4.3); LYMPH % 30.3 % (20.0-40.0); MEAN CELL VOLUME 88.6 fL (80.0-94.0); MEAN CORPUSCULAR HEMOGLOBIN 29.4 pg (27.0-31.0); MEAN CORPUSCULAR HGB CONC 33.1 g/dL (33.0-37.0); MEAN PLATELET VOLUME 8.6 fL (7.2-11.7); MONO # 0.9 K/uL (0.0-0.8); MONO % 12.5 % (0.0-10.0); NEUT # 3.9 K/uL (1.8-7.0); NEUT % 53.9 % (50.0-75.0); NRBC % 0.1 % (0.0-2.0); RBC 4.71 Mil/uL (4.40-5.90); RED CELL DISTRIBUTION WIDTH 14.4 % (11.5-14.5); WHITE BLOOD COUNT 7.3 K/uL (4.8-10.8)
[2018-04-11 07:19] LABS: ALB/GLOB RATIO 1.4 (1.0-2.1); ALBUMIN 4.3 g/dL (3.5-5.0); ALT/SGPT 30 U/L (21-72); AST/SGOT 32 U/L (17-59); BLOOD UREA NITROGEN 10 mg/dL (9-20); CALCIUM 9.4 mg/dl (8.6-10.4); GFR NON-AFRICAN AMERICAN > 60
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
[2018-04-11] MEDS: Multiple Vitamins Tab PO SCH (09:45)
[2018-04-11] MEDS: Pantoprazole 40 mg EC Tab PO SCH (09:45)
[2018-04-11] MEDS: Enoxaparin 40 mg Syringe SC SCH (09:45)
[2018-04-11] MEDS: SILVASORB ANTIMICROBIAL WOUND GEL TOP SCH (09:52)
--- NOTE | 2018-04-11 12:49 | CP.PCM.PN ---
Subjective - Date & Time of Evaluation Date of Evaluation: 04/11/18 Time of Evaluation: 08:00 - Subjective Subjective: clinically same Objective - Vital Signs/Intake and Output Vital Signs (last 24 hours): Temp Pulse Resp BP Pulse Ox 98.3 F 78 20 103/76 98 04/11/18 07:00 04/11/18 07:00 04/11/18 07:00 04/11/18 07:00 04/11/18 07:00 Intake and Output: 04/11/18 04/11/18 06:59 18:59 Intake Total 1000 Output Total 1 Balance 999 - Medications Medications: Current Medications Chlordiazepoxide (Librium) 25 mg PO Q8 PRN PRN Reason: Agitation Last Admin: 04/05/18 18:27 Dose: 25 mg Enoxaparin Sodium (Lovenox) 40 mg SC DAILY [facility] Last Admin: 04/11/18 09:45 Dose: 40 mg Folic Acid (Folic Acid) 1 mg PO DAILY [facility] Last Admin: 04/11/18 09:45 Dose: 1 mg Gabapentin (Neurontin) 100 mg PO TID [facility] Last Admin: 04/11/18 09:45 Dose: 100 mg Meropenem 1 gm/ Sodium (Chloride) 100 mls @ 100 mls/hr IVPB Q8H [facility]; Protocol Last Admin: 04/11/18 09:46 Dose: 100 mls/hr Amikacin Sulfate 500 mg/ (Sodium Chloride) 102 mls @ 100 mls/hr IV Q12H [facility]; Protocol Last Admin: 04/11/18 05:45 Dose: 100 mls/hr Ceftazidime/Avibactam 2.5 gm/ (Sodium Chloride) 100 mls @ 50 mls/hr IV Q8H [facility]; Protocol Vancomycin/Sodium Chloride (Vancomycin 1 Gm/Ns 200 Ml) 1 gm in 200 mls @ 133.333 mls/hr IVPB Q12H [facility]; Protocol Stop: 04/16/18 13:01 Multivitamins (Hexavitamin) 1 tab PO DAILY [facility] Last Admin: 04/11/18 09:45 Dose: 1 tab Pantoprazole Sodium (Protonix Ec Tab) 40 mg PO DAILY [facility] Last Admin: 04/11/18 09:45 Dose: 40 mg Thiamine HCl (Vitamin B1 Tab) 100 mg PO DAILY [facility] Last Admin: 04/11/18 09:45 Dose: 100 mg - Labs Labs: 04/11/18 06:53 04/11/18 06:53
--- NOTE | 2018-04-11 13:20 | RAD ---
Date of service: 04/11/2018 HISTORY: PICC Placement COMPARISON: 03/18/2018 FINDINGS: LUNGS: No active pulmonary disease. Interval insertion right PICC line tip right atrium. PLEURA: No significant pleural effusion identified, no pneumothorax apparent. CARDIOVASCULAR: No aortic atherosclerotic calcification present. Minimal cardiomegaly suspect no pulmonary vascular congestion. OSSEOUS STRUCTURES: No significant abnormalities. VISUALIZED UPPER ABDOMEN: Normal. OTHER FINDINGS: None. IMPRESSION: Interval insertion right PICC line tip right atrium. No pneumothorax seen. Other findings as above.
--- NOTE | 2018-04-11 13:33 | VASCLAB ---
Date of service: 04/09/2018 PROCEDURE: Lower Extremity Venous Duplex Exam. HISTORY: r/o DVT PRIORS: None. TECHNIQUE: Bilateral common femoral, femoral, popliteal and posterior tibial, peroneal and great saphenous veins were evaluated. Flow was assessed with color Doppler, compressibility, assessment of phasic flow and augmentation response. Report prepared by COOPER Chandra FINDINGS: RIGHT: 1. Common Femoral Vein: 1.1. Compressibility - Fully compressible: Thrombus - None : Flow - Phasic: Augmentation -Normal: Reflux - None. 2. Femoral Vein: 2.1. Compressibility - Fully compressible: Thrombus - None : Flow - Phasic: Augmentation -Normal: Reflux - None. 3. Popliteal Vein: 3.1. Compressibility - Fully compressible: Thrombus - None : Flow - Phasic: Augmentation -Normal: Reflux - None. 4. Posterior Tibial Vein: 4.1. Unable to examine/ covered area. 5. Peroneal Vein: 5.1. Unable to examine/ covered area. 6. Great Saphenous Vein: 6.1. Compressibility - Fully compressible: Thrombus - None: Flow - Phasic: Augmentation - Normal: Reflux - None. LEFT: 1. Common Femoral Vein: 1.1. Compressibility - Fully compressible: Thrombus - None: Flow - Phasic: Augmentation -Normal: Reflux - None. 2. Femoral Vein: 2.1. Compressibility - Fully compressible: Thrombus - None: Flow - Phasic: Augmentation -Normal: Reflux - None. 3. Popliteal Vein: 3.1. Compressibility - Fully compressible: Thrombus - None : Flow - Phasic: Augmentation -Normal: Reflux - None. 4. Posterior Tibial Vein: 4.1. Compressibility - Fully compressible: Thrombus - None: Flow - Phasic: Augmentation -Normal: Reflux - None. 5. Peroneal Vein: 5.1. Compressibility - Fully compressible: Thrombus - None: Flow - Phasic: Augmentation -Normal: Reflux - None. 6. Great Saphenous Vein: 6.1. Compressibility - Fully compressible: Thrombus - None: Flow - Phasic: Augmentation - Normal: Reflux - None. OTHER FINDINGS: Right: None significant. Left: None significant. IMPRESSION: Right: No evidence of deep or superficial vein thrombosis of the right lower, for the examined veins. Normal valve function noted of the right side. Left: No evidence of deep or superficial vein thrombosis of the left lower extremity. Normal valve function noted of the left side.
[2018-04-11] MEDS: Vancomycin 1 gm/NS 200 ml 1 GM/200 ML BAG IVPB SCH (14:00)
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
[2018-04-11] MEDS: Lactobacillus Acidophilus 500 MU Cap PO SCH (17:36)
[2018-04-12] MEDS: Vancomycin 1 gm/NS 200 ml 1 GM/200 ML BAG IVPB SCH ×2 (00:12→13:35)
[2018-04-12 07:08] LABS: ALB/GLOB RATIO 1.3 (1.0-2.1); ALBUMIN 4.1 g/dL (3.5-5.0); ALT/SGPT 25 U/L (21-72); AST/SGOT 30 U/L (17-59); BLOOD UREA NITROGEN 13 mg/dL (9-20); CALCIUM 9.5 mg/dl (8.6-10.4); GFR NON-AFRICAN AMERICAN > 60
[2018-04-12 07:18] LABS: BASO % 0.6 % (0.0-2.0); EOS # 0.2 K/uL (0.0-0.7); EOS % 2.4 % (0.0-4.0); HEMOGLOBIN 13.3 g/dL (12.0-18.0); LYMPH # 1.8 K/uL (1.0-4.3); LYMPH % 23.6 % (20.0-40.0); MEAN CELL VOLUME 88.6 fL (80.0-94.0); MEAN CORPUSCULAR HEMOGLOBIN 29.1 pg (27.0-31.0); MEAN CORPUSCULAR HGB CONC 32.9 g/dL (33.0-37.0); MEAN PLATELET VOLUME 9.1 fL (7.2-11.7); MONO # 0.9 K/uL (0.0-0.8); MONO % 11.5 % (0.0-10.0); NEUT # 4.7 K/uL (1.8-7.0); NEUT % 61.9 % (50.0-75.0); NRBC % 0.2 % (0.0-2.0); RBC 4.57 Mil/uL (4.40-5.90); RED CELL DISTRIBUTION WIDTH 14.1 % (11.5-14.5); WHITE BLOOD COUNT 7.6 K/uL (4.8-10.8)
[2018-04-12] MEDS: Enoxaparin 40 mg Syringe SC SCH (10:24)
[2018-04-12] MEDS: Pantoprazole 40 mg EC Tab PO SCH (10:24)
[2018-04-12] MEDS: Lactobacillus Acidophilus 500 MU Cap PO SCH ×2 (10:25→17:27)
[2018-04-12] MEDS: SILVASORB ANTIMICROBIAL WOUND GEL TOP SCH (10:25)
[2018-04-12] MEDS: Multiple Vitamins Tab PO SCH (10:25)
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
--- NOTE | 2018-04-12 19:17 | CP.PCM.PN ---
Subjective - Date & Time of Evaluation Date of Evaluation: 04/12/18 Time of Evaluation: 07:45 - Subjective Subjective: clinically same Objective - Vital Signs/Intake and Output Vital Signs (last 24 hours): Temp Pulse Resp BP Pulse Ox 98 F 70 20 120/70 95 04/12/18 16:00 04/12/18 16:00 04/12/18 16:00 04/12/18 16:00 04/12/18 16:00 Intake and Output: 04/12/18 04/13/18 18:59 06:59 Intake Total 800 Balance 800 - Medications Medications: Current Medications Chlordiazepoxide (Librium) 25 mg PO Q8 PRN PRN Reason: Agitation Last Admin: 04/05/18 18:27 Dose: 25 mg Enoxaparin Sodium (Lovenox) 40 mg SC DAILY [facility] Last Admin: 04/12/18 10:24 Dose: 40 mg Folic Acid (Folic Acid) 1 mg PO DAILY [facility] Last Admin: 04/12/18 10:25 Dose: 1 mg Gabapentin (Neurontin) 100 mg PO TID [facility] Last Admin: 04/12/18 17:27 Dose: 100 mg Amikacin Sulfate 500 mg/ (Sodium Chloride) 102 mls @ 100 mls/hr IV Q12H [facility]; Protocol Last Admin: 04/12/18 17:28 Dose: 100 mls/hr Ceftazidime/Avibactam 2.5 gm/ (Sodium Chloride) 100 mls @ 50 mls/hr IV Q8H [facility]; Protocol Last Admin: 04/12/18 14:53 Dose: 50 mls/hr Vancomycin/Sodium Chloride (Vancomycin 1 Gm/Ns 200 Ml) 1 gm in 200 mls @ 133.333 mls/hr IVPB Q12H [facility]; Protocol Stop: 04/16/18 13:01 Last Admin: 04/12/18 13:35 Dose: 133.333 mls/hr Lactobacillus Acidophilus (Bacid Acidophilus) 1 cap PO BID [facility] Last Admin: 04/12/18 17:27 Dose: 1 cap Multivitamins (Hexavitamin) 1 tab PO DAILY [facility] Last Admin: 04/12/18 10:25 Dose: 1 tab Pantoprazole Sodium (Protonix Ec Tab) 40 mg PO DAILY [facility] Last Admin: 04/12/18 10:24 Dose: 40 mg Thiamine HCl (Vitamin B1 Tab) 100 mg PO DAILY [facility] Last Admin: 04/12/18 10:24 Dose: 100 mg - Labs Labs: 04/12/18 06:33 04/12/18 06:33 - Constitutional Appears: Well - Head Exam Head Exam: ATRAUMATIC, NORMAL INSPECTION, NORMOCEPHALIC - Eye Exam Eye Exam: EOMI, Normal appearance, PERRL Pupil Exam: NORMAL ACCOMODATION, PERRL - ENT Exam ENT Exam: Mucous Membranes Moist, Normal Exam - Neck Exam Neck Exam: Full ROM, Normal Inspection. absent: Lymphadenopathy - Respiratory Exam Respiratory Exam: Decreased Breath Sounds - Cardiovascular Exam Cardiovascular Exam: REGULAR RHYTHM, +S1, +S2 - GI/Abdominal Exam GI & Abdominal Exam: Soft, Diminished Bowel Sounds - Rectal Exam Rectal Exam: Deferred
--- NOTE | 2018-04-12 21:58 | CP.PCM.PN ---
Subjective - Date & Time of Evaluation Date of Evaluation: 04/12/18 Time of Evaluation: 14:00 - Subjective Subjective: dictated Objective - Vital Signs/Intake and Output Vital Signs (last 24 hours): Temp Pulse Resp BP Pulse Ox 98 F 70 20 120/70 95 04/12/18 16:00 04/12/18 16:00 04/12/18 16:00 04/12/18 16:00 04/12/18 16:00 Intake and Output: 04/12/18 04/13/18 18:59 06:59 Intake Total 800 Balance 800 - Medications Medications: Current Medications Chlordiazepoxide (Librium) 25 mg PO Q8 PRN PRN Reason: Agitation Last Admin: 04/05/18 18:27 Dose: 25 mg Enoxaparin Sodium (Lovenox) 40 mg SC DAILY [facility] Last Admin: 04/12/18 10:24 Dose: 40 mg Folic Acid (Folic Acid) 1 mg PO DAILY [facility] Last Admin: 04/12/18 10:25 Dose: 1 mg Gabapentin (Neurontin) 100 mg PO TID [facility] Last Admin: 04/12/18 17:27 Dose: 100 mg Amikacin Sulfate 500 mg/ (Sodium Chloride) 102 mls @ 100 mls/hr IV Q12H [facility]; Protocol Last Admin: 04/12/18 17:28 Dose: 100 mls/hr Ceftazidime/Avibactam 2.5 gm/ (Sodium Chloride) 100 mls @ 50 mls/hr IV Q8H [facility]; Protocol Last Admin: 04/12/18 21:14 Dose: 50 mls/hr Vancomycin/Sodium Chloride (Vancomycin 1 Gm/Ns 200 Ml) 1 gm in 200 mls @ 133.333 mls/hr IVPB Q12H [facility]; Protocol Stop: 04/16/18 13:01 Last Admin: 04/12/18 13:35 Dose: 133.333 mls/hr Lactobacillus Acidophilus (Bacid Acidophilus) 1 cap PO BID [facility] Last Admin: 04/12/18 17:27 Dose: 1 cap Multivitamins (Hexavitamin) 1 tab PO DAILY [facility] Last Admin: 04/12/18 10:25 Dose: 1 tab Pantoprazole Sodium (Protonix Ec Tab) 40 mg PO DAILY [facility] Last Admin: 04/12/18 10:24 Dose: 40 mg Thiamine HCl (Vitamin B1 Tab) 100 mg PO DAILY [facility] Last Admin: 04/12/18 10:24 Dose: 100 mg - Labs Labs: 04/12/18 06:33 04/12/18 06:33
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
[2018-04-13] MEDS: Vancomycin 1 gm/NS 200 ml 1 GM/200 ML BAG IVPB SCH ×2 (01:15→12:52)
[2018-04-13 06:46] LABS: BASO # 0.1 K/uL (0.0-0.2); BASO % 0.8 % (0.0-2.0); EOS # 0.2 K/uL (0.0-0.7); EOS % 2.9 % (0.0-4.0); LYMPH % 24.8 % (20.0-40.0); MEAN CELL VOLUME 87.8 fL (80.0-94.0); MEAN CORPUSCULAR HEMOGLOBIN 28.9 pg (27.0-31.0); MEAN CORPUSCULAR HGB CONC 32.9 g/dL (33.0-37.0); MEAN PLATELET VOLUME 9.2 fL (7.2-11.7); MONO % 12.6 % (0.0-10.0); NEUT # 4.8 K/uL (1.8-7.0); NEUT % 58.9 % (50.0-75.0); RBC 4.52 Mil/uL (4.40-5.90); RED CELL DISTRIBUTION WIDTH 14.3 % (11.5-14.5); WHITE BLOOD COUNT 8.1 K/uL (4.8-10.8)
[2018-04-13 06:58] LABS: ALB/GLOB RATIO 1.4 (1.0-2.1); ALT/SGPT 32 U/L (21-72); AST/SGOT 30 U/L (17-59); BLOOD UREA NITROGEN 14 mg/dL (9-20); CALCIUM 9.5 mg/dl (8.6-10.4); GFR NON-AFRICAN AMERICAN > 60
[2018-04-13] MEDS: Enoxaparin 40 mg Syringe SC SCH (09:54)
[2018-04-13] MEDS: Pantoprazole 40 mg EC Tab PO SCH (09:55)
[2018-04-13] MEDS: Multiple Vitamins Tab PO SCH (09:55)
[2018-04-13] MEDS: Lactobacillus Acidophilus 500 MU Cap PO SCH ×2 (09:55→17:28)
[2018-04-13] MEDS: SILVASORB ANTIMICROBIAL WOUND GEL TOP SCH (09:55)
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
--- NOTE | 2018-04-13 13:43 | CP.PCM.PN ---
Subjective - Date & Time of Evaluation Date of Evaluation: 04/13/18 Time of Evaluation: 07:30 - Subjective Subjective: clinically same Objective - Vital Signs/Intake and Output Vital Signs (last 24 hours): Temp Pulse Resp BP Pulse Ox 97.8 F 95 H 20 115/72 96 04/13/18 07:51 04/13/18 07:51 04/13/18 07:51 04/13/18 07:51 04/13/18 07:51 Intake and Output: 04/13/18 04/13/18 06:59 18:59 Intake Total 800 Balance 800 - Medications Medications: Current Medications Chlordiazepoxide (Librium) 25 mg PO Q8 PRN PRN Reason: Agitation Last Admin: 04/05/18 18:27 Dose: 25 mg Enoxaparin Sodium (Lovenox) 40 mg SC DAILY [facility] Last Admin: 04/13/18 09:54 Dose: 40 mg Folic Acid (Folic Acid) 1 mg PO DAILY [facility] Last Admin: 04/13/18 09:54 Dose: 1 mg Gabapentin (Neurontin) 100 mg PO TID [facility] Last Admin: 04/13/18 09:55 Dose: 100 mg Amikacin Sulfate 500 mg/ (Sodium Chloride) 102 mls @ 100 mls/hr IV Q12H [facility]; Protocol Last Admin: 04/13/18 07:00 Dose: 100 mls/hr Ceftazidime/Avibactam 2.5 gm/ (Sodium Chloride) 100 mls @ 50 mls/hr IV Q8H [facility]; Protocol Last Admin: 04/13/18 05:00 Dose: 50 mls/hr Vancomycin/Sodium Chloride (Vancomycin 1 Gm/Ns 200 Ml) 1 gm in 200 mls @ 133.333 mls/hr IVPB Q12H [facility]; Protocol Stop: 04/16/18 13:01 Last Admin: 04/13/18 12:52 Dose: 133.333 mls/hr Lactobacillus Acidophilus (Bacid Acidophilus) 1 cap PO BID [facility] Last Admin: 04/13/18 09:55 Dose: 1 cap Multivitamins (Hexavitamin) 1 tab PO DAILY [facility] Last Admin: 04/13/18 09:55 Dose: 1 tab Pantoprazole Sodium (Protonix Ec Tab) 40 mg PO DAILY [facility] Last Admin: 04/13/18 09:55 Dose: 40 mg Thiamine HCl (Vitamin B1 Tab) 100 mg PO DAILY [facility] Last Admin: 04/13/18 09:55 Dose: 100 mg - Labs Labs: 04/13/18 06:36 04/13/18 06:36 - Constitutional Appears: Well - Head Exam Head Exam: ATRAUMATIC, NORMAL INSPECTION, NORMOCEPHALIC - Eye Exam Eye Exam: EOMI, Normal appearance, PERRL Pupil Exam: NORMAL ACCOMODATION, PERRL - ENT Exam ENT Exam: Mucous Membranes Moist, Normal Exam - Neck Exam Neck Exam: Full ROM, Normal Inspection. absent: Lymphadenopathy - Respiratory Exam Respiratory Exam: Decreased Breath Sounds - Cardiovascular Exam Cardiovascular Exam: REGULAR RHYTHM, +S1, +S2 - GI/Abdominal Exam GI & Abdominal Exam: Soft, Diminished Bowel Sounds - Rectal Exam Rectal Exam: Deferred
--- NOTE | 2018-04-13 15:35 | CP.PCM.PN ---
Subjective - Date & Time of Evaluation Date of Evaluation: 04/13/18 Time of Evaluation: 14:45 - Subjective Subjective: dictated Objective - Vital Signs/Intake and Output Vital Signs (last 24 hours): Temp Pulse Resp BP Pulse Ox 97.8 F 95 H 20 115/72 96 04/13/18 07:51 04/13/18 07:51 04/13/18 07:51 04/13/18 07:51 04/13/18 07:51 Intake and Output: 04/13/18 04/13/18 06:59 18:59 Intake Total 800 500 Balance 800 500 - Medications Medications: Current Medications Chlordiazepoxide (Librium) 25 mg PO Q8 PRN PRN Reason: Agitation Last Admin: 04/05/18 18:27 Dose: 25 mg Enoxaparin Sodium (Lovenox) 40 mg SC DAILY [facility] Last Admin: 04/13/18 09:54 Dose: 40 mg Folic Acid (Folic Acid) 1 mg PO DAILY [facility] Last Admin: 04/13/18 09:54 Dose: 1 mg Gabapentin (Neurontin) 100 mg PO TID [facility] Last Admin: 04/13/18 14:18 Dose: 100 mg Amikacin Sulfate 500 mg/ (Sodium Chloride) 102 mls @ 100 mls/hr IV Q12H [facility]; Protocol Last Admin: 04/13/18 07:00 Dose: 100 mls/hr Ceftazidime/Avibactam 2.5 gm/ (Sodium Chloride) 100 mls @ 50 mls/hr IV Q8H [facility]; Protocol Last Admin: 04/13/18 14:18 Dose: 50 mls/hr Vancomycin/Sodium Chloride (Vancomycin 1 Gm/Ns 200 Ml) 1 gm in 200 mls @ 133.333 mls/hr IVPB Q12H [facility]; Protocol Stop: 04/16/18 13:01 Last Admin: 04/13/18 12:52 Dose: 133.333 mls/hr Lactobacillus Acidophilus (Bacid Acidophilus) 1 cap PO BID [facility] Last Admin: 04/13/18 09:55 Dose: 1 cap Multivitamins (Hexavitamin) 1 tab PO DAILY [facility] Last Admin: 04/13/18 09:55 Dose: 1 tab Pantoprazole Sodium (Protonix Ec Tab) 40 mg PO DAILY [facility] Last Admin: 04/13/18 09:55 Dose: 40 mg Thiamine HCl (Vitamin B1 Tab) 100 mg PO DAILY [facility] Last Admin: 04/13/18 09:55 Dose: 100 mg - Labs Labs: 04/13/18 06:36 04/13/18 06:36
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
[2018-04-14] MEDS: Lactobacillus Acidophilus 500 MU Cap PO SCH ×2 (09:48→17:08)
[2018-04-14] MEDS: Enoxaparin 40 mg Syringe SC SCH (09:49)
[2018-04-14] MEDS: Multiple Vitamins Tab PO SCH (09:49)
[2018-04-14] MEDS: Pantoprazole 40 mg EC Tab PO SCH (09:49)
[2018-04-14] MEDS: SILVASORB ANTIMICROBIAL WOUND GEL TOP SCH (09:50)
--- NOTE | 2018-04-14 16:51 | CP.PCM.PN ---
Subjective - Date & Time of Evaluation Date of Evaluation: 04/14/18 Time of Evaluation: 07:30 - Subjective Subjective: clinically same Objective - Vital Signs/Intake and Output Vital Signs (last 24 hours): Temp Pulse Resp BP Pulse Ox 98.0 F 86 20 113/66 95 04/14/18 15:00 04/14/18 15:00 04/14/18 15:00 04/14/18 15:00 04/14/18 15:00 Intake and Output: 04/14/18 04/14/18 06:59 18:59 Intake Total 1040 600 Balance 1040 600 - Medications Medications: Current Medications Chlordiazepoxide (Librium) 25 mg PO Q8 PRN PRN Reason: Agitation Last Admin: 04/05/18 18:27 Dose: 25 mg Enoxaparin Sodium (Lovenox) 40 mg SC DAILY [facility] Last Admin: 04/14/18 09:49 Dose: 40 mg Folic Acid (Folic Acid) 1 mg PO DAILY [facility] Last Admin: 04/14/18 09:49 Dose: 1 mg Gabapentin (Neurontin) 100 mg PO TID [facility] Last Admin: 04/14/18 13:38 Dose: 100 mg Amikacin Sulfate 500 mg/ (Sodium Chloride) 102 mls @ 100 mls/hr IV Q12H [facility]; Protocol Last Admin: 04/14/18 05:56 Dose: 100 mls/hr Ceftazidime/Avibactam 2.5 gm/ (Sodium Chloride) 100 mls @ 50 mls/hr IV Q8H [facility]; Protocol Last Admin: 04/14/18 13:38 Dose: 50 mls/hr Vancomycin HCl 1,250 mg/ (Sodium Chloride) 250 mls @ 166.6 mls/hr IVPB Q12H [facility]; Protocol Last Admin: 04/14/18 04:34 Dose: 166.6 mls/hr Lactobacillus Acidophilus (Bacid Acidophilus) 1 cap PO BID [facility] Last Admin: 04/14/18 09:48 Dose: 1 cap Multivitamins (Hexavitamin) 1 tab PO DAILY [facility] Last Admin: 04/14/18 09:49 Dose: 1 tab Pantoprazole Sodium (Protonix Ec Tab) 40 mg PO DAILY [facility] Last Admin: 04/14/18 09:49 Dose: 40 mg Thiamine HCl (Vitamin B1 Tab) 100 mg PO DAILY [facility] Last Admin: 04/14/18 09:49 Dose: 100 mg - Labs Labs: 04/13/18 06:36 04/13/18 06:36 - Constitutional Appears: Well - Head Exam Head Exam: ATRAUMATIC, NORMAL INSPECTION, NORMOCEPHALIC - Eye Exam Eye Exam: EOMI, Normal appearance, PERRL Pupil Exam: NORMAL ACCOMODATION, PERRL - ENT Exam ENT Exam: Mucous Membranes Moist, Normal Exam - Neck Exam Neck Exam: Full ROM, Normal Inspection. absent: Lymphadenopathy - Respiratory Exam Respiratory Exam: Decreased Breath Sounds - Cardiovascular Exam Cardiovascular Exam: REGULAR RHYTHM, +S1, +S2 - GI/Abdominal Exam GI & Abdominal Exam: Soft, Diminished Bowel Sounds - Rectal Exam Rectal Exam: Deferred
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
[2018-04-15] MEDS: Multiple Vitamins Tab PO SCH (09:13)
[2018-04-15] MEDS: Lactobacillus Acidophilus 500 MU Cap PO SCH (09:13)
[2018-04-15] MEDS: Pantoprazole 40 mg EC Tab PO SCH (09:13)
[2018-04-15] MEDS: Enoxaparin 40 mg Syringe SC SCH (09:14)
[2018-04-15] MEDS: SILVASORB ANTIMICROBIAL WOUND GEL TOP SCH (09:16)
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
[2018-04-15 18:01] VITALS: BP 123/74; PULSE 84; TEMP 98.2; O2SAT 97
--- NOTE | 2018-04-15 18:54 | CP.PCM.PN ---
Subjective - Date & Time of Evaluation Date of Evaluation: 04/15/18 Time of Evaluation: 07:30 - Subjective Subjective: Clinically same Objective - Vital Signs/Intake and Output Vital Signs (last 24 hours): Temp Pulse Resp BP Pulse Ox 98.2 F 84 20 123/74 97 04/15/18 18:01 04/15/18 18:01 04/15/18 18:01 04/15/18 18:01 04/15/18 18:01 Intake and Output: 04/15/18 04/15/18 06:59 18:59 Intake Total 350 Balance 350 - Labs Labs: 04/13/18 06:36 04/13/18 06:36 - Constitutional Appears: Well - Head Exam Head Exam: ATRAUMATIC, NORMAL INSPECTION, NORMOCEPHALIC - Eye Exam Eye Exam: EOMI, Normal appearance, PERRL Pupil Exam: NORMAL ACCOMODATION, PERRL - ENT Exam ENT Exam: Mucous Membranes Moist, Normal Exam - Neck Exam Neck Exam: Full ROM, Normal Inspection. absent: Lymphadenopathy - Respiratory Exam Respiratory Exam: Decreased Breath Sounds - Cardiovascular Exam Cardiovascular Exam: REGULAR RHYTHM, +S1, +S2 - GI/Abdominal Exam GI & Abdominal Exam: Soft, Diminished Bowel Sounds - Rectal Exam Rectal Exam: Deferred
--- NOTE | 2018-04-15 19:05 | CP.PCM.PN ---
Subjective - Date & Time of Evaluation Date of Evaluation: 04/15/18 Time of Evaluation: 15:25 - Subjective Subjective: dictated Objective - Vital Signs/Intake and Output Vital Signs (last 24 hours): Temp Pulse Resp BP Pulse Ox 98.2 F 84 20 123/74 97 04/15/18 18:01 04/15/18 18:01 04/15/18 18:01 04/15/18 18:01 04/15/18 18:01 - Labs Labs: 04/13/18 06:36 04/13/18 06:36
--- NOTE | 2018-04-16 00:29 | PN ---
DATE: 04/15/2018 SUBJECTIVE: The patient is afebrile. He is feeling better. Denies any pain. He says his leg pain is getting better. He is getting IV antibiotics. He has a PICC line. Denies any diarrhea. No shortness of breath. He is getting out of bed. PHYSICAL EXAMINATION: VITAL SIGNS: T-max is 98.2, blood pressure 123/74, respirations are 20, heart rate is 84. HEENT: Head is atraumatic and normocephalic. NECK: Supple. LUNGS: Clear. HEART: S1 and S2, regular. ABDOMEN: Soft, nontender. No guarding, no rigidity present. EXTREMITIES: Right leg has dressing at this time. Extremities have no edema. PLAN: We will do a wound culture tomorrow and if that is improving, then we will take off the Avycaz and would let him go with vancomycin IV for osteomyelitis treatment. We will follow. We will right leg ulcer. Lidia Dougherty MD
== END 2018-04-15 18:48 | DRG 277 ==
LOC: C.ER 19:43 → C.9E 20:59 → C.3T 04-05 16:43 → C.9E 04-05 16:46 → C.3T 04-05 16:52
PROVIDERS: ADMIT Internal Medicine Nephrology; ATTEND Internal Medicine Nephrology
PROC: 02HV33Z Insertion of Infusion Device into Superior Vena Cava, Percutaneous Approach (ICD-10-PCS; principal; 2018-04-11)
PROC: B548ZZA Ultrasonography of Superior Vena Cava, Guidance (ICD-10-PCS; 2018-04-11)
DX: L03.115 Cellulitis of right lower limb (principal); L97.919 Non-pressure chronic ulcer of unspecified part of right lower leg with unspecified severity; L03.116 Cellulitis of left lower limb; F17.210 Nicotine dependence, cigarettes, uncomplicated; G40.909 Epilepsy, unspecified, not intractable, without status epilepticus; F10.10 Alcohol abuse, uncomplicated; Z16.19 Resistance to other specified beta lactam antibiotics; Z59.0 Homelessness; Z79.899 Other long term (current) drug therapy; Z91.19 Patient's noncompliance with other medical treatment and regimen

== ENCOUNTER 2018-07-15 21:07 | Inpatient (IN) | payer MEDICAID ==
[2018-07-15 21:07] VITALS: BMI 25.0
[2018-07-15] MEDS ORDERED: cefTRIAXone IV 1 gm in Dextros 50 ML IVPB ONE (22:33)
[2018-07-15] MEDS ORDERED: Vancomycin 1 gm/NS 200 ml 1 GM/200 ML BAG IVPB STA (22:33)
--- NOTE | 2018-07-15 23:22 | C.PDOC ---
History Of Present Illness 58 year old male with PMHx of alcoholism presents to the ED for evaluation of non healing wound to his right lower leg. Patient previously seen in March for osteo. Patient is a poor historian. Patient denies any other complaints. Time Seen by Provider: 07/15/18 22:10 Chief Complaint (Nursing): Abnormal Skin Integrity History Per: Patient History/Exam Limitations: no limitations Onset/Duration Of Symptoms: Days Current Symptoms Are (Timing): Still Present Location Of Injury: Right: Leg Quality Of Symptoms: Painful Recent travel outside of the [place]: No Additional History Per: Patient Past Medical History Reviewed: Historical Data, Nursing Documentation, Vital Signs Vital Signs: Last Vital Signs Temp 98.4 F 07/15/18 22:09 Pulse 117 H 07/15/18 22:09 Resp 19 07/15/18 22:09 BP 144/84 07/15/18 22:09 Pulse Ox 96 07/15/18 22:09 Primary Care Provider: Non [facility] Provider, - Medical History PMH: Seizures (as per triage triage) Denies: Deep Vein Thrombosis, Chronic Kidney Disease Surgical History: No Surg Hx Denies: Pacemaker - [facility] Procedures DETOXIFICATION SERVICES FOR SUBSTANCE ABUSE TREATMENT (03/17/18) EXCISION OF R LOW LEG SUBCU/FASCIA, OPEN APPROACH (06/04/17) INSERTION OF INFUSION DEV INTO SUP VENA CAVA, PERC APPROACH (04/04/18) INTRODUCTION OF SERUM/TOX/VACCINE INTO MUSCLE, PERC APPROACH (06/04/17) ULTRASONOGRAPHY OF SUPERIOR VENA CAVA, GUIDANCE (04/04/18) Family History: States: Unknown Family Hx - Social History Hx Tobacco Use: Yes Hx Alcohol Use: Yes Hx Substance Use: No - Immunization History Hx Tetanus Toxoid Vaccination: No (DENIES) Hx Influenza Vaccination: Yes (DENIES) Hx Pneumococcal Vaccination: Yes (DENIES) Review Of Systems Constitutional: Negative for: Fever, Chills Cardiovascular: Negative for: Chest Pain Respiratory: Negative for: Shortness of Breath Gastrointestinal: Negative for: Nausea, Vomiting, Abdominal Pain Musculoskeletal: Positive for: Leg Pain Skin: Positive for: Other (wound). Negative for: Rash Neurological: Negative for: Weakness, Numbness Physical Exam - Physical Exam Appears: Non-toxic, No Acute Distress Skin: Normal Color, Warm, Dry Head: Atraumatic, Normacephalic Eye(s): bilateral: Normal Inspection Neck: Normal ROM, Supple Chest: Symmetrical Cardiovascular: Rhythm Regular Respiratory: Normal Breath Sounds, No Rales, No Rhonchi, No Wheezing Gastrointestinal/Abdominal: Soft, No Tenderness, No Distention Extremity: Normal ROM, Capillary Refill (< 2 seconds), Other (4 cm open wound right lower leg) Pulses: Left Dorsalis Pedis: Normal, Right Dorsalis Pedis: Normal Neurological/Psych: Oriented x3, Normal Speech, Normal Cognition Gait: Steady ED Course And Treatment - Laboratory Results Result Diagrams: 07/17/18 07:25 07/17/18 07:25 O2 Sat by Pulse Oximetry: 96 (ON RA) Pulse Ox Interpretation: Normal Medical Decision Making Medical Decision Making: infected wound r/o osteo Plan: * Labs * Right Tib X-Ray * Vancomycin * Rocephin * * wound initallcy covered in maggots. poos outpt support. iv antibiotics iniated. accepted dr nghia herrera. Disposition - Disposition Disposition: HOSPITALIZED Disposition Time: 12:00 Condition: STABLE - Clinical Impression Clinical Impression: Infected traumatic ulcer of lower extremity, Ulcer of right leg, Infected wound - Scribe Statement The provider has reviewed the documentation as recorded by the Scribe Anthony Bailey All medical record entries made by the Scribe were at my direction and personally dictated by me. I have reviewed the chart and agree that the record accurately reflects my personal performance of the history, physical exam, medical decision making, and the department course for this patient. I have also personally directed, reviewed, and agree with the discharge instructions and disposition. Decision To Admit - Pt Status Changed To: Hospital Disposition Of: Observation - InPatient: Physician Admission Certification: I certify that this patient requires 2 or more midnights of care for the following reason:: needs iv antibiotics - . Bed Request Type: Regular Admitting Physician: Zenia Herrera Patient Diagnosis: Infected traumatic ulcer of lower extremity, Ulcer of right leg, Infected wound
[2018-07-15 23:53] LABS: BASO % 0.2 % (0.0-2.0); EOS # 0.1 K/uL (0.0-0.7); EOS % 0.6 % (0.0-4.0); HEMOGLOBIN 13.5 g/dL (12.0-18.0); LYMPH # 1.3 K/uL (1.0-4.3); LYMPH % 12.6 % (20.0-40.0); MEAN CELL VOLUME 88.7 fL (80.0-94.0); MEAN CORPUSCULAR HEMOGLOBIN 30.6 pg (27.0-31.0); MEAN CORPUSCULAR HGB CONC 34.5 g/dL (33.0-37.0); MEAN PLATELET VOLUME 7.5 fL (7.2-11.7); MONO # 1.3 K/uL (0.0-0.8); MONO % 12.1 % (0.0-10.0); NEUT # 7.8 K/uL (1.8-7.0); NEUT % 74.5 % (50.0-75.0); RBC 4.42 Mil/uL (4.40-5.90); RED CELL DISTRIBUTION WIDTH 15.3 % (11.5-14.5); WHITE BLOOD COUNT 10.5 K/uL (4.8-10.8)
[2018-07-15 23:57] LABS: INR 1.2; PROTHROMBIN TIME 13.5 SECONDS (9.7-12.2)
[2018-07-16] MEDS ORDERED: Vancomycin 1 GM 1 GM/250 ML BAG IVPB ONE (00:08)
[2018-07-16 00:15] LABS: ALB/GLOB RATIO 1.2 (1.0-2.1); ALBUMIN 4.3 g/dL (3.5-5.0); ALT/SGPT 21 U/L (21-72); AST/SGOT 33 U/L (17-59); BLOOD UREA NITROGEN 7 mg/dL (9-20); CALCIUM 8.8 mg/dl (8.6-10.4); GFR NON-AFRICAN AMERICAN > 60
[2018-07-16 01:32] VITALS: RESP 20
--- NOTE | 2018-07-16 08:43 | RAD ---
Date of service: 07/15/2018 PROCEDURE: Radiographs of the right tibia and fibula. HISTORY: wound COMPARISON: None available TECHNIQUE: Frontal and lateral views obtained. 2 views obtained. FINDINGS: BONES: No fracture seen. There is smooth periosteal reaction along the distal fibular diaphysis this appears deep to a prominent lateral lower leg wound/ulcer type soft tissue lesion. A chronic osteomyelitis or old healed trauma here considerations. Superficial extensive wound like changes over the medial lower leg also suggested. No tibial periosteal reaction noted here. Multiple marina project over the medial and lateral soft tissues. JOINT SPACES: Unremarkable. OTHER FINDINGS: None. IMPRESSION: No fracture seen. Extensive soft tissue changes compatible with wound./probable ulcer type lesions. No focal cortical destruction seen. However there is smooth periosteal reaction along the distal fibular shaft closely approximating the wound-a chronic osteomyelitis here cannot be excluded. Comments: Study marked for PA review .
[2018-07-16] MEDS ORDERED: Multivitamin (MVI) 10 ML, Thiamine 100 MG, Folic Acid 1 MG in Sodium Chloride 0.9% 1,00... IV ONE (09:00)
[2018-07-16] MEDS: Lactobacillus Acidophilus 500 MU Cap PO SCH ×2 (10:19→17:27)
[2018-07-16] MEDS: Piperacillin/Tazobact 3.375 GM in Sodium Chloride 100 ML IVPB SCH ×3 (10:19→21:53)
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
[2018-07-16] MEDS: Potassium Chloride 20 mEq ER Tab PO SCH (18:55)
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
[2018-07-17] MEDS: Piperacillin/Tazobact 3.375 GM in Sodium Chloride 100 ML IVPB SCH ×4 (04:06→21:17)
[2018-07-17] MEDS: Potassium Chloride 20 mEq ER Tab PO SCH (07:17)
[2018-07-17 07:38] LABS: BASO # 0.1 K/uL (0.0-0.2); BASO % 0.5 % (0.0-2.0); EOS # 0.2 K/uL (0.0-0.7); EOS % 1.8 % (0.0-4.0); HEMOGLOBIN 13.8 g/dL (12.0-18.0); LYMPH # 1.4 K/uL (1.0-4.3); LYMPH % 13.2 % (20.0-40.0); MEAN CELL VOLUME 89.3 fL (80.0-94.0); MEAN CORPUSCULAR HEMOGLOBIN 30.4 pg (27.0-31.0); MEAN PLATELET VOLUME 7.5 fL (7.2-11.7); MONO # 0.8 K/uL (0.0-0.8); NEUT % 76.5 % (50.0-75.0); RBC 4.56 Mil/uL (4.40-5.90); RED CELL DISTRIBUTION WIDTH 14.8 % (11.5-14.5); WHITE BLOOD COUNT 10.5 K/uL (4.8-10.8)
[2018-07-17 07:46] LABS: BLOOD UREA NITROGEN 6 mg/dL (9-20); CALCIUM 9.1 mg/dl (8.6-10.4); GFR NON-AFRICAN AMERICAN > 60
[2018-07-17] MEDS: Multiple Vitamins Tab PO SCH (09:27)
[2018-07-17] MEDS: Lactobacillus Acidophilus 500 MU Cap PO SCH ×2 (09:27→17:11)
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
--- NOTE | 2018-07-17 21:28 | CP.PCM.PN ---
Subjective - Date & Time of Evaluation Date of Evaluation: 07/17/18 Time of Evaluation: 07:00 - Subjective Subjective: afebrile awake alert no fever Objective - Vital Signs/Intake and Output Vital Signs (last 24 hours): Temp Pulse Resp BP Pulse Ox 98.2 F 80 20 113/67 95 07/17/18 15:54 07/17/18 15:54 07/17/18 15:54 07/17/18 15:54 07/17/18 15:54 - Medications Medications: Current Medications Chlordiazepoxide (Librium) 25 mg PO Q8 PRN PRN Reason: Anxiety Last Admin: 07/16/18 17:37 Dose: 25 mg Chlordiazepoxide (Librium) 25 mg PO Q8 PRN PRN Reason: Agitation Folic Acid (Folic Acid) 1 mg PO DAILY [facility] Last Admin: 07/17/18 09:26 Dose: 1 mg Heparin Sodium (Porcine) (Heparin) 5,000 units SC Q12 [facility] Last Admin: 07/17/18 21:18 Dose: 5,000 units Vancomycin HCl 1 gm/ Sodium (Chloride) 250 mls @ 166.7 mls/hr IVPB Q24H [facility]; Protocol Last Admin: 07/17/18 01:05 Dose: 166.7 mls/hr Piperacillin Sod/Tazobactam (Sod 3.375 gm/ Sodium Chloride) 100 mls @ 200 mls/hr IVPB Q6H [facility]; Protocol Last Admin: 07/17/18 21:17 Dose: 200 mls/hr Lactobacillus Acidophilus (Lactobacillus) 1 cap PO BID [facility] Last Admin: 07/17/18 17:11 Dose: 1 cap Multivitamins (Hexavitamin) 1 tab PO DAILY [facility] Last Admin: 07/17/18 09:27 Dose: 1 tab Pantoprazole Sodium (Protonix Inj) 40 mg IVP DAILY [facility] Last Admin: 07/17/18 09:29 Dose: 40 mg Potassium Chloride (K-Dur 20 Meq Er Tab) 40 meq PO BRK [facility] Last Admin: 07/17/18 07:17 Dose: 40 meq Thiamine HCl (Vitamin B1 Tab) 100 mg PO DAILY [facility] Last Admin: 07/17/18 09:27 Dose: 100 mg - Labs Labs: 07/17/18 07:25 07/17/18 07:25 PT 13.5 SECONDS (9.7-12.2) H 07/15/18 23:45 INR 1.2 07/15/18 23:45 APTT 32.0 SECONDS (21-34) 07/15/18 23:45 - Constitutional Appears: Non-toxic, Chronically Ill - Head Exam Head Exam: ATRAUMATIC, NORMAL INSPECTION, NORMOCEPHALIC - Eye Exam Eye Exam: EOMI, Normal appearance, PERRL Pupil Exam: NORMAL ACCOMODATION, PERRL - ENT Exam ENT Exam: Mucous Membranes Moist, Normal Exam - Neck Exam Neck Exam: Full ROM, Normal Inspection. absent: Lymphadenopathy - Respiratory Exam Respiratory Exam: Clear to Ausculation Bilateral, NORMAL BREATHING PATTERN - Cardiovascular Exam Cardiovascular Exam: REGULAR RHYTHM, +S1, +S2. absent: Murmur - GI/Abdominal Exam GI & Abdominal Exam: Soft, Normal Bowel Sounds. absent: Tenderness - Rectal Exam Rectal Exam: Deferred - Exam Exam: NORMAL INSPECTION - Extremities Exam Extremities Exam: Full ROM, Normal Capillary Refill, Normal Inspection. absent: Joint Swelling, Pedal Edema - Back Exam Back Exam: NORMAL INSPECTION - Neurological Exam Neurological Exam: Alert, Awake, CN II-XII Intact, Normal Gait, Oriented x3 - Psychiatric Exam Psychiatric exam: Normal Affect, Normal Mood - Skin Skin Exam: Dry, Erythema, Warm. absent: Normal Color Assessment and Plan (1) Alcohol abuse Status: Acute (2) Bilateral lower leg cellulitis Status: Acute - Assessment and Plan (Free Text) Assessment: RLE cellulitis hx of skin graft cultures pending IV rx to continue
[2018-07-18] MEDS: Piperacillin/Tazobact 3.375 GM in Sodium Chloride 100 ML IVPB SCH ×4 (03:33→22:02)
[2018-07-18] MEDS: Potassium Chloride 20 mEq ER Tab PO SCH (07:16)
[2018-07-18] MEDS: Lactobacillus Acidophilus 500 MU Cap PO SCH ×2 (09:37→17:34)
[2018-07-18] MEDS: Multiple Vitamins Tab PO SCH (09:37)
[2018-07-18] MEDS: Pantoprazole 40 mg EC Tab PO SCH (10:11)
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
--- NOTE | 2018-07-18 18:57 | CP.PCM.PN ---
Subjective - Date & Time of Evaluation Date of Evaluation: 07/18/18 Time of Evaluation: 07:00 - Subjective Subjective: seen on rounds discussed with PMD patient examined labs reviewed orders signed Objective - Vital Signs/Intake and Output Vital Signs (last 24 hours): Temp Pulse Resp BP Pulse Ox 97.6 F 80 20 113/73 100 07/18/18 15:56 07/18/18 15:56 07/18/18 15:56 07/18/18 15:56 07/18/18 15:56 Intake and Output: 07/18/18 07/18/18 06:59 18:59 Intake Total 500 Balance 500 - Medications Medications: Current Medications Chlordiazepoxide (Librium) 25 mg PO Q8 PRN PRN Reason: Anxiety Last Admin: 07/16/18 17:37 Dose: 25 mg Chlordiazepoxide (Librium) 25 mg PO Q8 PRN PRN Reason: Agitation Folic Acid (Folic Acid) 1 mg PO DAILY [facility] Last Admin: 07/18/18 09:38 Dose: 1 mg Heparin Sodium (Porcine) (Heparin) 5,000 units SC Q12 [facility] Last Admin: 07/18/18 09:38 Dose: 5,000 units Vancomycin HCl 1 gm/ Sodium (Chloride) 250 mls @ 166.7 mls/hr IVPB Q24H [facility]; Protocol Last Admin: 07/18/18 00:03 Dose: 166.7 mls/hr Piperacillin Sod/Tazobactam (Sod 3.375 gm/ Sodium Chloride) 100 mls @ 200 mls/hr IVPB Q6H [facility]; Protocol Last Admin: 07/18/18 16:00 Dose: 200 mls/hr Lactobacillus Acidophilus (Lactobacillus) 1 cap PO BID [facility] Last Admin: 07/18/18 17:34 Dose: 1 cap Multivitamins (Hexavitamin) 1 tab PO DAILY [facility] Last Admin: 07/18/18 09:37 Dose: 1 tab Pantoprazole Sodium (Protonix Ec Tab) 40 mg PO DAILY [facility] Last Admin: 07/18/18 10:11 Dose: 40 mg Thiamine HCl (Vitamin B1 Tab) 100 mg PO DAILY [facility] Last Admin: 07/18/18 09:36 Dose: 100 mg - Labs Labs: 07/17/18 07:25 07/17/18 07:25 PT 13.5 SECONDS (9.7-12.2) H 07/15/18 23:45 INR 1.2 07/15/18 23:45 APTT 32.0 SECONDS (21-34) 07/15/18 23:45 - Constitutional Appears: Well - Head Exam Head Exam: ATRAUMATIC, NORMAL INSPECTION, NORMOCEPHALIC - Eye Exam Eye Exam: EOMI, Normal appearance, PERRL Pupil Exam: NORMAL ACCOMODATION, PERRL - ENT Exam ENT Exam: Mucous Membranes Moist, Normal Exam - Neck Exam Neck Exam: Full ROM, Normal Inspection. absent: Lymphadenopathy - Respiratory Exam Respiratory Exam: Clear to Ausculation Bilateral, NORMAL BREATHING PATTERN - Cardiovascular Exam Cardiovascular Exam: REGULAR RHYTHM, +S1, +S2. absent: Murmur - GI/Abdominal Exam GI & Abdominal Exam: Soft, Normal Bowel Sounds. absent: Tenderness - Rectal Exam Rectal Exam: Deferred - Extremities Exam Extremities Exam: Full ROM, Normal Capillary Refill, Normal Inspection. absent: Joint Swelling, Pedal Edema - Back Exam Back Exam: NORMAL INSPECTION - Neurological Exam Neurological Exam: Alert, Awake, CN II-XII Intact, Normal Gait, Oriented x3 - Psychiatric Exam Psychiatric exam: Normal Affect, Normal Mood - Skin Skin Exam: Dry, Intact, Normal Color, Warm Assessment and Plan (1) Alcohol abuse Status: Acute (2) Bilateral lower leg cellulitis Status: Acute - Assessment and Plan (Free Text) Assessment: cont rx for R leg cellulitis hx OM Podiatry on board follow up with Dr Ran Pendleton
[2018-07-19] MEDS: Piperacillin/Tazobact 3.375 GM in Sodium Chloride 100 ML IVPB SCH ×4 (04:49→21:56)
[2018-07-19] MEDS: Multiple Vitamins Tab PO SCH (09:41)
[2018-07-19] MEDS: Pantoprazole 40 mg EC Tab PO SCH (09:41)
[2018-07-19] MEDS: Lactobacillus Acidophilus 500 MU Cap PO SCH ×2 (09:41→17:34)
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
--- NOTE | 2018-07-19 18:46 | CP.PCM.PN ---
Subjective - Date & Time of Evaluation Date of Evaluation: 07/19/18 Time of Evaluation: 09:00 - Subjective Subjective: seen onm rounds rx in prgogress 'discussed with Dr Ran herrera Objective - Vital Signs/Intake and Output Vital Signs (last 24 hours): Temp Pulse Resp BP Pulse Ox 97.9 F 77 20 115/71 96 07/19/18 15:00 07/19/18 15:00 07/19/18 15:00 07/19/18 15:00 07/19/18 15:00 Intake and Output: 07/19/18 07/19/18 06:59 18:59 Intake Total 600 Balance 600 - Medications Medications: Current Medications Chlordiazepoxide (Librium) 25 mg PO Q8 PRN PRN Reason: Anxiety Last Admin: 07/16/18 17:37 Dose: 25 mg Chlordiazepoxide (Librium) 25 mg PO Q8 PRN PRN Reason: Agitation Folic Acid (Folic Acid) 1 mg PO DAILY [facility] Last Admin: 07/19/18 09:41 Dose: 1 mg Heparin Sodium (Porcine) (Heparin) 5,000 units SC Q12 [facility] Last Admin: 07/19/18 09:41 Dose: 5,000 units Vancomycin HCl 1 gm/ Sodium (Chloride) 250 mls @ 166.7 mls/hr IVPB Q24H [facility]; Protocol Last Admin: 07/19/18 00:02 Dose: 166.7 mls/hr Piperacillin Sod/Tazobactam (Sod 3.375 gm/ Sodium Chloride) 100 mls @ 200 mls/h r IVPB Q6H [facility]; Protocol Last Admin: 07/19/18 16:26 Dose: 200 mls/hr Lactobacillus Acidophilus (Lactobacillus) 1 cap PO BID [facility] Last Admin: 07/19/18 17:34 Dose: 1 cap Multivitamins (Hexavitamin) 1 tab PO DAILY [facility] Last Admin: 07/19/18 09:41 Dose: 1 tab Pantoprazole Sodium (Protonix Ec Tab) 40 mg PO DAILY [facility] Last Admin: 07/19/18 09:41 Dose: 40 mg Thiamine HCl (Vitamin B1 Tab) 100 mg PO DAILY [facility] Last Admin: 07/19/18 09:41 Dose: 100 mg - Labs Labs: 07/17/18 07:25 07/17/18 07:25 PT 13.5 SECONDS (9.7-12.2) H 07/15/18 23:45 INR 1.2 07/15/18 23:45 APTT 32.0 SECONDS (21-34) 07/15/18 23:45 - Constitutional Appears: Non-toxic, No Acute Distress, Chronically Ill - Head Exam Head Exam: ATRAUMATIC, NORMAL INSPECTION, NORMOCEPHALIC - Eye Exam Eye Exam: EOMI, Normal appearance, PERRL Pupil Exam: NORMAL ACCOMODATION, PERRL - ENT Exam ENT Exam: Mucous Membranes Moist, Normal Exam - Neck Exam Neck Exam: Full ROM, Normal Inspection. absent: Lymphadenopathy - Respiratory Exam Respiratory Exam: Clear to Ausculation Bilateral, NORMAL BREATHING PATTERN - Cardiovascular Exam Cardiovascular Exam: REGULAR RHYTHM, +S1, +S2. absent: Murmur - GI/Abdominal Exam GI & Abdominal Exam: Soft, Normal Bowel Sounds. absent: Tenderness - Rectal Exam Rectal Exam: Deferred - Extremities Exam Extremities Exam: Full ROM, Normal Capillary Refill, Normal Inspection. absent: Joint Swelling, Pedal Edema - Back Exam Back Exam: NORMAL INSPECTION - Neurological Exam Neurological Exam: Alert, Awake, CN II-XII Intact, Normal Gait, Oriented x3 - Psychiatric Exam Psychiatric exam: Normal Affect, Normal Mood - Skin Skin Exam: Dry, Intact, Normal Color, Warm Assessment and Plan (1) Alcohol abuse Status: Acute (2) Bilateral lower leg cellulitis Status: Acute - Assessment and Plan (Free Text) Assessment: cont rx IV antibiotics may need lead ios developer rx
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
[2018-07-20] MEDS: Piperacillin/Tazobact 3.375 GM in Sodium Chloride 100 ML IVPB SCH ×4 (03:33→21:15)
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
[2018-07-20] MEDS: Multiple Vitamins Tab PO SCH (09:54)
[2018-07-20] MEDS: Pantoprazole 40 mg EC Tab PO SCH (09:54)
[2018-07-20] MEDS: Lactobacillus Acidophilus 500 MU Cap PO SCH ×2 (09:55→17:22)
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
[2018-07-21] MEDS: Piperacillin/Tazobact 3.375 GM in Sodium Chloride 100 ML IVPB SCH ×2 (03:49→09:13)
[2018-07-21] MEDS: Lactobacillus Acidophilus 500 MU Cap PO SCH ×2 (09:12→17:05)
[2018-07-21] MEDS: Multiple Vitamins Tab PO SCH (09:13)
[2018-07-21] MEDS: Pantoprazole 40 mg EC Tab PO SCH (09:13)
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
--- NOTE | 2018-07-21 14:23 | CP.PCM.PN ---
Subjective - Date & Time of Evaluation Date of Evaluation: 07/21/18 Time of Evaluation: 09:00 - Subjective Subjective: seen on rounds patient examined chart reviewed cultures noted IV rx reordered Objective - Vital Signs/Intake and Output Vital Signs (last 24 hours): Temp Pulse Resp BP Pulse Ox 97.9 F 67 20 109/70 97 07/21/18 07:30 07/21/18 07:30 07/21/18 07:30 07/21/18 07:30 07/21/18 07:30 - Medications Medications: Current Medications Chlordiazepoxide (Librium) 25 mg PO Q8 PRN PRN Reason: Anxiety Last Admin: 07/16/18 17:37 Dose: 25 mg Chlordiazepoxide (Librium) 25 mg PO Q8 PRN PRN Reason: Agitation Folic Acid (Folic Acid) 1 mg PO DAILY [facility] Last Admin: 07/21/18 09:13 Dose: 1 mg Vancomycin HCl 1 gm/ Sodium (Chloride) 250 mls @ 166.7 mls/hr IVPB Q24H [facility]; Protocol Last Admin: 07/21/18 01:05 Dose: 166.7 mls/hr Lactobacillus Acidophilus (Lactobacillus) 1 cap PO BID [facility] Last Admin: 07/21/18 09:12 Dose: 1 cap Multivitamins (Hexavitamin) 1 tab PO DAILY [facility] Last Admin: 07/21/18 09:13 Dose: 1 tab Pantoprazole Sodium (Protonix Ec Tab) 40 mg PO DAILY [facility] Last Admin: 07/21/18 09:13 Dose: 40 mg Thiamine HCl (Vitamin B1 Tab) 100 mg PO DAILY [facility] Last Admin: 07/21/18 09:13 Dose: 100 mg - Labs Labs: 07/17/18 07:25 07/17/18 07:25 PT 13.5 SECONDS (9.7-12.2) H 07/15/18 23:45 INR 1.2 07/15/18 23:45 APTT 32.0 SECONDS (21-34) 07/15/18 23:45 - Constitutional Appears: Non-toxic, No Acute Distress, Chronically Ill - Head Exam Head Exam: ATRAUMATIC, NORMAL INSPECTION, NORMOCEPHALIC - Eye Exam Eye Exam: EOMI, Normal appearance, PERRL Pupil Exam: NORMAL ACCOMODATION, PERRL - ENT Exam ENT Exam: Mucous Membranes Moist, Normal Exam - Neck Exam Neck Exam: Full ROM, Normal Inspection. absent: Lymphadenopathy - Respiratory Exam Respiratory Exam: Clear to Ausculation Bilateral, NORMAL BREATHING PATTERN - Cardiovascular Exam Cardiovascular Exam: REGULAR RHYTHM, +S1, +S2. absent: Murmur - GI/Abdominal Exam GI & Abdominal Exam: Soft, Normal Bowel Sounds. absent: Tenderness - Rectal Exam Rectal Exam: Deferred - Exam Exam: NORMAL INSPECTION (x) - Extremities Exam Extremities Exam: Full ROM, Normal Capillary Refill, Pedal Edema, Tenderness. absent: Joint Swelling, Normal Inspection - Back Exam Back Exam: NORMAL INSPECTION - Neurological Exam Neurological Exam: Alert, Awake, CN II-XII Intact, Normal Gait, Oriented x3 - Psychiatric Exam Psychiatric exam: Normal Affect, Normal Mood - Skin Skin Exam: Dry, Intact, Normal Color, Warm Assessment and Plan (1) Alcohol abuse Status: Acute (2) Bilateral lower leg cellulitis Status: Acute - Assessment and Plan (Free Text) Assessment: cont IV Rx as per Milad Pendleton will renew rx for now
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
[2018-07-22] MEDS ORDERED: Vancomycin 1 gm/NS 200 ml 1 GM/200 ML BAG IVPB SCH (10:00)
[2018-07-22] MEDS: Pantoprazole 40 mg EC Tab PO SCH (10:22)
[2018-07-22] MEDS: Lactobacillus Acidophilus 500 MU Cap PO SCH ×2 (10:22→17:03)
[2018-07-22] MEDS: Multiple Vitamins Tab PO SCH (10:22)
[2018-07-22] MEDS: Piperacill/Tazo 3.375gm in Dex 3.375 GM/50 ML BAG IVPB SCH ×3 (10:23→20:40)
--- NOTE | 2018-07-22 10:51 | CP.PCM.PN ---
Subjective - Date & Time of Evaluation Date of Evaluation: 07/22/18 Time of Evaluation: 09:00 - Subjective Subjective: xray- ? OM cont iv rx for 6 weeks consider MRI or bone scan Objective - Vital Signs/Intake and Output Vital Signs (last 24 hours): Temp Pulse Resp BP Pulse Ox 97.9 F 86 20 108/77 99 07/22/18 07:54 07/22/18 07:54 07/22/18 07:54 07/22/18 07:54 07/22/18 07:54 - Medications Medications: Current Medications Chlordiazepoxide (Librium) 25 mg PO Q8 PRN PRN Reason: Anxiety Last Admin: 07/16/18 17:37 Dose: 25 mg Chlordiazepoxide (Librium) 25 mg PO Q8 PRN PRN Reason: Agitation Folic Acid (Folic Acid) 1 mg PO DAILY [facility] Last Admin: 07/22/18 10:22 Dose: 1 mg Heparin Sodium (Porcine) (Heparin) 5,000 units SC Q8 [facility] Piperacillin Sod/Tazobactam Sod (Zosyn 3.375 Gm Iv Premix) 3.375 gm in 50 mls @ 200 mls/hr IVPB Q6H [facility]; Protocol Last Admin: 07/22/18 10:23 Dose: 200 mls/hr Vancomycin/Sodium Chloride (Vancomycin 1 Gm/Ns 200 Ml) 1 gm in 200 mls @ 167 mls/hr IVPB 0100 [facility]; Protocol Stop: 07/27/18 10:01 Lactobacillus Acidophilus (Lactobacillus) 1 cap PO BID [facility] Last Admin: 07/22/18 10:22 Dose: 1 cap Multivitamins (Hexavitamin) 1 tab PO DAILY [facility] Last Admin: 07/22/18 10:22 Dose: 1 tab Pantoprazole Sodium (Protonix Ec Tab) 40 mg PO DAILY [facility] Last Admin: 07/22/18 10:22 Dose: 40 mg Thiamine HCl (Vitamin B1 Tab) 100 mg PO DAILY [facility] Last Admin: 07/22/18 10:22 Dose: 100 mg - Labs Labs: 07/17/18 07:25 07/17/18 07:25 PT 13.5 SECONDS (9.7-12.2) H 07/15/18 23:45 INR 1.2 07/15/18 23:45 APTT 32.0 SECONDS (21-34) 07/15/18 23:45 - Constitutional Appears: Non-toxic, No Acute Distress, Chronically Ill - Head Exam Head Exam: ATRAUMATIC, NORMAL INSPECTION, NORMOCEPHALIC - Eye Exam Eye Exam: EOMI, Normal appearance, PERRL Pupil Exam: NORMAL ACCOMODATION, PERRL - ENT Exam ENT Exam: Mucous Membranes Moist, Normal Exam - Neck Exam Neck Exam: Full ROM, Normal Inspection. absent: Lymphadenopathy - Respiratory Exam Respiratory Exam: Clear to Ausculation Bilateral, NORMAL BREATHING PATTERN - Cardiovascular Exam Cardiovascular Exam: REGULAR RHYTHM, +S1, +S2. absent: Murmur - GI/Abdominal Exam GI & Abdominal Exam: Soft, Normal Bowel Sounds. absent: Tenderness - Rectal Exam Rectal Exam: Deferred - Extremities Exam Extremities Exam: Full ROM, Normal Capillary Refill, Normal Inspection. absent: Joint Swelling, Pedal Edema - Back Exam Back Exam: NORMAL INSPECTION - Neurological Exam Neurological Exam: Alert, Awake, CN II-XII Intact, Normal Gait, Oriented x3 - Psychiatric Exam Psychiatric exam: Normal Affect, Normal Mood - Skin Skin Exam: Dry, Intact, Normal Color, Warm Assessment and Plan (1) Alcohol abuse Status: Acute (2) Bilateral lower leg cellulitis Status: Acute - Assessment and Plan (Free Text) Assessment: r/o OM check bone scan' cont IV rx for now
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
--- NOTE | 2018-07-22 16:51 | RAD ---
Date of service: 07/22/2018 HISTORY: verify rigt PICC COMPARISON: 06/17/2018 TECHNIQUE: 1 view obtained. FINDINGS: LUNGS: No active pulmonary disease. PLEURA: No significant pleural effusion identified, no pneumothorax apparent. CARDIOVASCULAR: No aortic atherosclerotic calcification present. Normal cardiac size. Right PICC catheter noted terminating just above the level of the cavoatrial junction. OSSEOUS STRUCTURES: No significant abnormalities. VISUALIZED UPPER ABDOMEN: Normal. OTHER FINDINGS: None. IMPRESSION: New right PICC catheter terminates just above the cavoatrial junction. Otherwise unremarkable.
[2018-07-23] MEDS: Vancomycin 1 gm/NS 200 ml 1 GM/200 ML BAG IVPB SCH (00:30)
[2018-07-23] MEDS: Piperacill/Tazo 3.375gm in Dex 3.375 GM/50 ML BAG IVPB SCH ×4 (02:55→21:39)
[2018-07-23 06:42] LABS: BASO # 0.1 K/uL (0.0-0.2); BASO % 0.9 % (0.0-2.0); EOS # 0.2 K/uL (0.0-0.7); EOS % 2.4 % (0.0-4.0); HEMOGLOBIN 14.3 g/dL (12.0-18.0); LYMPH # 1.8 K/uL (1.0-4.3); LYMPH % 22.1 % (20.0-40.0); MEAN CELL VOLUME 90.4 fL (80.0-94.0); MEAN CORPUSCULAR HEMOGLOBIN 29.5 pg (27.0-31.0); MEAN CORPUSCULAR HGB CONC 32.7 g/dL (33.0-37.0); MEAN PLATELET VOLUME 8.9 fL (7.2-11.7); MONO # 0.9 K/uL (0.0-0.8); MONO % 10.9 % (0.0-10.0); NEUT # 5.3 K/uL (1.8-7.0); NEUT % 63.7 % (50.0-75.0); NRBC % 0.1 % (0.0-2.0); RBC 4.85 Mil/uL (4.40-5.90); RED CELL DISTRIBUTION WIDTH 14.5 % (11.5-14.5); WHITE BLOOD COUNT 8.2 K/uL (4.8-10.8)
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
[2018-07-23 07:40] LABS: ALB/GLOB RATIO 1.2 (1.0-2.1); ALBUMIN 4.1 g/dL (3.5-5.0); ALT/SGPT 69 U/L (21-72); AST/SGOT 39 U/L (17-59); BLOOD UREA NITROGEN 10 mg/dL (9-20); CALCIUM 9.1 mg/dl (8.6-10.4); GFR NON-AFRICAN AMERICAN > 60
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
[2018-07-23] MEDS: Pantoprazole 40 mg EC Tab PO SCH (10:47)
[2018-07-23] MEDS: Multiple Vitamins Tab PO SCH (10:47)
[2018-07-23] MEDS: Lactobacillus Acidophilus 500 MU Cap PO SCH ×2 (10:47→18:42)
--- NOTE | 2018-07-23 11:29 | CP.PCM.PN ---
Subjective - Date & Time of Evaluation Date of Evaluation: 07/23/18 Time of Evaluation: 08:00 - Subjective Subjective: bone scan negative IV rx in progress Objective - Vital Signs/Intake and Output Vital Signs (last 24 hours): Temp Pulse Resp BP Pulse Ox 98 F 77 20 100/62 97 07/23/18 07:54 07/23/18 07:54 07/23/18 07:54 07/23/18 07:54 07/23/18 07:54 Intake and Output: 07/23/18 07/23/18 06:59 18:59 Intake Total 1050 Balance 1050 - Medications Medications: Current Medications Chlordiazepoxide (Librium) 25 mg PO Q8 PRN PRN Reason: Agitation Folic Acid (Folic Acid) 1 mg PO DAILY [facility] Last Admin: 07/23/18 10:47 Dose: 1 mg Heparin Sodium (Porcine) (Heparin) 5,000 units SC Q8 [facility] Last Admin: 07/23/18 07:00 Dose: 5,000 units Piperacillin Sod/Tazobactam Sod (Zosyn 3.375 Gm Iv Premix) 3.375 gm in 50 mls @ 200 mls/hr IVPB Q6H [facility]; Protocol Last Admin: 07/23/18 10:12 Dose: 200 mls/hr Vancomycin/Sodium Chloride (Vancomycin 1 Gm/Ns 200 Ml) 1 gm in 200 mls @ 167 mls/hr IVPB 0100 [facility]; Protocol Stop: 07/27/18 10:01 Last Admin: 07/23/18 00:30 Dose: 167 mls/hr Lactobacillus Acidophilus (Lactobacillus) 1 cap PO BID [facility] Last Admin: 07/23/18 10:47 Dose: 1 cap Multivitamins (Hexavitamin) 1 tab PO DAILY [facility] Last Admin: 07/23/18 10:47 Dose: 1 tab Pantoprazole Sodium (Protonix Ec Tab) 40 mg PO DAILY [facility] Last Admin: 07/23/18 10:47 Dose: 40 mg Thiamine HCl (Vitamin B1 Tab) 100 mg PO DAILY [facility] Last Admin: 07/23/18 10:47 Dose: 100 mg - Labs Labs: 07/23/18 06:33 07/23/18 06:33 PT 13.5 SECONDS (9.7-12.2) H 07/15/18 23:45 INR 1.2 07/15/18 23:45 APTT 32.0 SECONDS (21-34) 07/15/18 23:45 - Constitutional Appears: Non-toxic, Chronically Ill - Head Exam Head Exam: ATRAUMATIC, NORMAL INSPECTION, NORMOCEPHALIC - Eye Exam Eye Exam: EOMI, Normal appearance, PERRL Pupil Exam: NORMAL ACCOMODATION, PERRL - ENT Exam ENT Exam: Mucous Membranes Moist, Normal Exam - Neck Exam Neck Exam: Full ROM, Normal Inspection. absent: Lymphadenopathy - Respiratory Exam Respiratory Exam: Clear to Ausculation Bilateral, NORMAL BREATHING PATTERN - Cardiovascular Exam Cardiovascular Exam: REGULAR RHYTHM, +S1, +S2. absent: Murmur - GI/Abdominal Exam GI & Abdominal Exam: Soft, Normal Bowel Sounds. absent: Tenderness - Rectal Exam Rectal Exam: Deferred - Exam Exam: NORMAL INSPECTION - Extremities Exam Extremities Exam: Full ROM, Normal Capillary Refill, Normal Inspection. absent: Joint Swelling, Pedal Edema - Back Exam Back Exam: NORMAL INSPECTION - Neurological Exam Neurological Exam: Alert, Awake, CN II-XII Intact, Normal Gait, Oriented x3 - Psychiatric Exam Psychiatric exam: Normal Affect, Normal Mood - Skin Skin Exam: Dry, Intact, Normal Color, Warm Assessment and Plan (1) Alcohol abuse Status: Acute (2) Bilateral lower leg cellulitis Status: Acute - Assessment and Plan (Free Text) Assessment: wound healing bone scan neg cont IV rx for another [address] Ran herrera
--- NOTE | 2018-07-23 16:31 | NM ---
Date of service: 07/23/2018 PROCEDURE: Three-phase bone Scan HISTORY: r/o osteomyelitis COMPARISON: 11/03/2017. Three-phase bone scan TECHNIQUE: Following administration of 21.0 miCu of Tc MDP three-phase bone scan performed attention right lower extremity FINDINGS: Flow component: Increased flow to the visualized right lower extremity from the calf to the feet-toes. Blood pool component: Accumulation of radionuclide limited to soft tissues area of interest right lower extremity. Delayed images at 3:00: Degenerative changes in both knees and feet. Other findings: None. IMPRESSION: Evidence of right lower extremity cellulitis without acute osseous process.
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
[2018-07-24] MEDS: Vancomycin 1 gm/NS 200 ml 1 GM/200 ML BAG IVPB SCH (01:15)
[2018-07-24] MEDS: Piperacill/Tazo 3.375gm in Dex 3.375 GM/50 ML BAG IVPB SCH ×3 (02:52→14:04)
[2018-07-24 06:42] LABS: BASO # 0.1 K/uL (0.0-0.2); BASO % 1.1 % (0.0-2.0); EOS # 0.2 K/uL (0.0-0.7); EOS % 2.7 % (0.0-4.0); HEMOGLOBIN 12.7 g/dL (12.0-18.0); LYMPH # 1.9 K/uL (1.0-4.3); MEAN CELL VOLUME 91.2 fL (80.0-94.0); MEAN CORPUSCULAR HEMOGLOBIN 29.1 pg (27.0-31.0); MEAN CORPUSCULAR HGB CONC 31.9 g/dL (33.0-37.0); MONO # 0.7 K/uL (0.0-0.8); MONO % 12.4 % (0.0-10.0); NEUT # 3.2 K/uL (1.8-7.0); NEUT % 52.8 % (50.0-75.0); RBC 4.36 Mil/uL (4.40-5.90); RED CELL DISTRIBUTION WIDTH 14.6 % (11.5-14.5)
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
[2018-07-24 07:51] LABS: ALB/GLOB RATIO 1.1 (1.0-2.1); ALBUMIN 3.4 g/dL (3.5-5.0); ALT/SGPT 56 U/L (21-72); AST/SGOT 27 U/L (17-59); BLOOD UREA NITROGEN 10 mg/dL (9-20); CALCIUM 8.1 mg/dl (8.6-10.4); GFR NON-AFRICAN AMERICAN > 60
[2018-07-24] MEDS: Lactobacillus Acidophilus 500 MU Cap PO SCH (09:28)
[2018-07-24] MEDS: Multiple Vitamins Tab PO SCH (09:28)
[2018-07-24] MEDS: Pantoprazole 40 mg EC Tab PO SCH (09:28)
[2018-07-24] MEDS ORDERED: Potassium Chloride 20 mEq ER Tab PO ONE (10:00)
--- NOTE | 2018-07-24 12:20 | CP.PCM.PN ---
Subjective - Date & Time of Evaluation Date of Evaluation: 07/24/18 Time of Evaluation: 07:00 Objective - Vital Signs/Intake and Output Vital Signs (last 24 hours): Temp Pulse Resp BP Pulse Ox 98.2 F 88 20 119/75 97 07/24/18 08:16 07/24/18 08:16 07/24/18 08:16 07/24/18 08:16 07/24/18 08:16 Intake and Output: 07/24/18 07/24/18 06:59 18:59 Intake Total 530 Balance 530 - Medications Medications: Current Medications Chlordiazepoxide (Librium) 25 mg PO Q8 PRN PRN Reason: Agitation Folic Acid (Folic Acid) 1 mg PO DAILY [facility] Last Admin: 07/24/18 09:28 Dose: 1 mg Heparin Sodium (Porcine) (Heparin) 5,000 units SC Q8 [facility] Last Admin: 07/24/18 05:44 Dose: 5,000 units Piperacillin Sod/Tazobactam Sod (Zosyn 3.375 Gm Iv Premix) 3.375 gm in 50 mls @ 200 mls/hr IVPB Q6H [facility]; Protocol Last Admin: 07/24/18 09:29 Dose: 200 mls/hr Vancomycin/Sodium Chloride (Vancomycin 1 Gm/Ns 200 Ml) 1 gm in 200 mls @ 167 mls/hr IVPB 0100 [facility]; Protocol Stop: 07/27/18 10:01 Last Admin: 07/24/18 01:15 Dose: 167 mls/hr Lactobacillus Acidophilus (Lactobacillus) 1 cap PO BID [facility] Last Admin: 07/24/18 09:28 Dose: 1 cap Multivitamins (Hexavitamin) 1 tab PO DAILY [facility] Last Admin: 07/24/18 09:28 Dose: 1 tab Pantoprazole Sodium (Protonix Ec Tab) 40 mg PO DAILY [facility] Last Admin: 07/24/18 09:28 Dose: 40 mg Thiamine HCl (Vitamin B1 Tab) 100 mg PO DAILY [facility] Last Admin: 07/24/18 09:28 Dose: 100 mg - Labs Labs: 07/24/18 06:35 07/24/18 06:35 PT 13.5 SECONDS (9.7-12.2) H 07/15/18 23:45 INR 1.2 07/15/18 23:45 APTT 32.0 SECONDS (21-34) 07/15/18 23:45 Assessment and Plan (1) Alcohol abuse Status: Acute (2) Bilateral lower leg cellulitis Status: Acute
[2018-07-24 17:09] VITALS: BP 128/80; PULSE 84; TEMP 97.6; O2SAT 98
== END 2018-07-24 17:30 | DRG 271 ==
LOC: C.ER 21:07 → C.3T 07-16 00:15 → OBSVTOIN 07-16 11:55
PROVIDERS: ADMIT Internal Medicine Nephrology; ATTEND Internal Medicine Nephrology
DX: L97.819 Non-pressure chronic ulcer of other part of right lower leg with unspecified severity (principal); L03.115 Cellulitis of right lower limb; F10.239 Alcohol dependence with withdrawal, unspecified; L03.116 Cellulitis of left lower limb; D69.6 Thrombocytopenia, unspecified; F10.229 Alcohol dependence with intoxication, unspecified; B87.0 Cutaneous myiasis; G40.509 Epileptic seizures related to external causes, not intractable, without status epilepticus; B96.89 Other specified bacterial agents as the cause of diseases classified elsewhere; T24.001S Burn of unspecified degree of unspecified site of right lower limb, except ankle and foot, sequela; Z59.0 Homelessness; Z85.841 Personal history of malignant neoplasm of brain